=== PATIENT | male | born 1945 | race Caucasian/White ===

== ENCOUNTER 2017-08-26 15:57 | Inpatient (IN) | payer MEDICAID ==
--- NOTE | 2017-08-26 16:31 | ED PDOC ---
Arrival/HPI - General Chief Complaint: Weakness/Neurological Deficit Time Seen by Provider: 08/26/17 16:00 - History of Present Illness Narrative History of Present Illness (Text): 08/26/17 16:30 Patient is a 72 y/o M with hx of strokes, with 4 month history of increased forgetfulness, weight loss, and generalized fatigue. Daughter reports that today patient had 2 episodes were he could not hold his urine. Denies focal weakness. Denies chest pain, shortness of breath, bowel incontinence. Reports that he has been increasingly confused PMD: Gabby Ny 08/26/17 19:47 Past Medical History - Infectious Disease Hx of Infectious Diseases: None - Tetanus Immunization Tetanus Immunization: Up to Date - Cardiac Hx Hypertension: Yes - Pulmonary Hx Respiratory Disorders: No - Neurological HX Cerebrovascular Accident: Yes - HEENT Hx HEENT Disorder: Yes (glasses for reading) - Renal Hx Renal Disorder: No - Endocrine/Metabolic Hx Endocrine Disorders: No - Hematological/Oncological Hx Anemia: Yes - Integumentary Hx Dermatological Disorder: No - Musculoskeletal/Rheumatological Hx Musculoskeletal Disorders: No Hx Falls: No - Gastrointestinal Hx Gastrointestinal Disorders: No - Genitourinary/Gynecological Hx Genitourinary Disorders: No - Psychiatric Hx Depression: No Hx Emotional Abuse: No Hx Physical Abuse: No Hx Substance Use: No - Past Surgical History Past Surgical History: No Previous - Suicidal Assessment Feels Threatened In Home Enviroment: No Family/Social History Family/Social History: No Known Family HX Smoking Status: Former Smoker Hx Alcohol Use: No Hx Substance Use: No Hx Substance Use Treatment: No Allergies/Home Meds Allergies/Adverse Reactions: Allergies No Known Allergies Allergy (Verified 05/27/13 15:41) Home Medications: Home Meds Medication Instructions Recorded Confirmed Enalapril Maleate 20 mg PO BID 05/27/13 05/27/13 Metoprolol Tartrate 100 mg PO BID 05/27/13 05/27/13 Review of Systems - Review of Systems Constitutional: Fatigue, Weight Change Eyes: absent: Vision Changes ENT: absent: Hearing Changes Respiratory: absent: SOB, Cough, Sputum, Wheezing Cardiovascular: absent: Chest Pain, Palpitations, Edema, Calf Pain, LORENZANA, Orthopnea, Syncope Gastrointestinal: absent: Abdominal Pain, Constipation, Diarrhea, Nausea, Vomiting Genitourinary Male: Urinary Output Changes (incontinence). absent: Dysuria Neurological: absent: Headache, Dizziness, Focal Weakness, Gait Changes, Speech Changes Psychiatric: absent: Anxiety, Depression Physical Exam Vital Signs Temp Pulse Resp BP Pulse Ox 08/26/17 20:04 85 18 172/97 H 100 08/26/17 17:57 73 18 113/55 L 99 08/26/17 15:57 98.2 F 73 18 118/73 100 Temperature: Afebrile Blood Pressure: Normal Pulse: Regular Respiratory Rate: Normal Appearance: Positive for: Cachectic Pain Distress: None Mental Status: Positive for: Alert and Oriented X 3 - Systems Exam Head: Present: Atraumatic, Normocephalic Pupils: Present: PERRL Extroacular Muscles: Present: EOMI Conjunctiva: Present: Normal Mouth: Present: Moist Mucous Membranes Neck: No: Meningeal Signs Respiratory/Chest: Present: Clear to Auscultation, Good Air Exchange. No: Respiratory Distress, Accessory Muscle Use Cardiovascular: Present: Regular Rate and Rhythm, Normal S1, S2. No: Murmurs Abdomen: No: Tenderness, Distention, Rebound, Guarding Upper Extremity: Present: Normal Inspection, Normal ROM Lower Extremity: Present: Normal Inspection, Normal ROM Neurological: Present: GCS=15, CN II-XII Intact, Speech Normal, Motor Func Grossly Intact, Normal Sensory Function Psychiatric: Present: Alert Medical Decision Making ED Course and Treatment: Patient was able to urinate into urinal in ED without issue. Normal strength. 08/26/17 21:18 CT head IMPRESSION: Extremely limited by patient motion, atrophy and small vessel disease, no bleed; age indeterminate lacunar infarcts left thalamus and basal ganglia, age indeterminate infarct posterior left parietal lobe Essentially unchanged when compared to MRI on 08/18/17: "large old left parietal-posterior parietal cortical subcortical infarct multiple b.l cerebral lacunar infarcts including the basal ganglia and L thalamus lacunar infarct in the brainstem old large R cerebellar infarct with evidence of prior hemorrhage atrophy of the cerebellar hemispheres and brainstem b/l hippocampal atrophy more prominently on the L side. 08/26/17 22:43 FINDINGS: Lower thorax: Refer to prior report for chest findings ABDOMEN: Liver: unremarkable Gallbladder and bile ducts: unremarkable Pancreas: unremarkable Spleen: unremarkable Adrenals: There is thickening of both adrenals Kidneys and ureters: Kidneys are unremarkable. There is mild bilateral ureterectasis. Stomach and bowel: Stomach is partially distended. Rotation is normal. There is a duodenal diverticulum. Small bowel is distended with fluid and air. There is no obstruction. Terminal ileum is unremarkable. Appendix is not optimally visualized due to motion. There is moderate stool in the right colon. Left colon is incompletely distended which limits evaluation. Appendix: See stomach and bowel PELVIS: Bladder: Bladder is distended. Reproductive: Prostate is enlarged. There is prominence of the seminal vesicles. ABDOMEN and PELVIS: Intraperitoneal space: There is no free air or free fluid. Bones/joints: There are degenerative changes in the osseus structures. Soft tissues: unremarkable Vasculature: There are atherosclerotic calcifications in the aorta. There is mild dilatation of the infrarenal aorta, maximal diameter 2.6 cm. There is mural thrombus. There is medial displacement of curvilinear or atherosclerotic calcifications with contrast on either side suggesting distal dissection. There is no leak or adjacent inflammation. Lymph nodes: There is shotty adenopathy. 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 Dissection appears chronic. ?ileus. Patient reports no bowel movement in 2 days but denies abdominal pain. Abdomen soft NT/ND. UA negative. Patient is able to urinate in urinal on command in ED. ? incontinence from overflow or enlarged prostate or worsening dementia? Labs grossly normal. - Lab Interpretations Lab Results: 08/26/17 16:38 08/26/17 16:38 Lab Results 08/26/17 19:50: Urine Color Straw, Urine Appearance Clear, Urine pH 6.5, Ur Specific [place] <= 1.005, Urine Protein Negative, Urine Glucose (UA) Negative, Urine Ketones Negative, Urine Blood Negative, Urine Nitrate Negative, Urine Bilirubin Negative, Urine Urobilinogen 0.2, Ur Leukocyte Esterase Negative 08/26/17 16:38: Free T4 1.18, TSH 3rd Generation 4.96 H 08/26/17 16:38: Sodium 135, Potassium 4.4, Chloride 100, Carbon Dioxide 28, Anion Gap 12, BUN 20, Creatinine 1.1, Est GFR ( Amer) > 60, Est GFR (Non- Af Amer) > 60, Random Glucose 105, Calcium 9.5, Phosphorus 4.0, Magnesium 2.0, Total Bilirubin 0.5, AST 47, ALT 53, Alkaline Phosphatase 134 H, Total Creatine Kinase 46, Troponin I < 0.01, Total Protein 7.8, Albumin 3.7, Globulin 4.1, Albumin/Globulin Ratio 0.9 L 08/26/17 16:38: WBC 4.0 L, RBC 3.79, Hgb 10.7 L, Hct 32.9 L, MCV 86.8, MCH 28.2 , MCHC 32.5, RDW 12.9, Plt Count 212, MPV 9.1, Gran % 56.1, Lymph % (Auto) 26.2 , [place] % (Auto) 15.1 H, Eos % (Auto) 1.8, Baso % (Auto) 0.8, Gran # 2.23, Lymph # (Auto) 1.0 L, [place] # (Auto) 0.6, Eos # (Auto) 0.1, Baso # (Auto) 0.03 - RAD Interpretation Radiology Orders: 08/26/17 16:06 HEAD W/O CONTRAST [CT] Stat 08/26/17 16:07 CHEST PORTABLE [RAD] Stat 08/26/17 18:25 CHEST,ABD,PEL W/IV CONT ONLY [CT] Stat - Medication Orders Current Medication Orders: Discontinued Medications Sodium Chloride (Sodium Chloride 0.9%) 500 mls @ 999 mls/hr IV .Q31M STA Stop: 08/26/17 21:48 Last Admin: 08/26/17 21:15 Dose: 999 mls/hr eMAR Start Stop Document 08/26/17 21:15 RD (Rec: 08/26/17 21:43 RD [id number]) Intravenous Solution Start Date 08/26/17 Start Time 21:15 End Date 08/26/17 End time 21:45 Total Infusion Time 30 Disposition/Present on Arrival - Present on Arrival Any Indicators Present on Arrival: No History of DVT/PE: No History of Uncontrolled Diabetes: No Urinary Catheter: No History of Decub. Ulcer: No History Surgical Site Infection Following: None - Disposition Have Diagnosis and Disposition been Completed?: Yes Diagnosis: Ileus, Atherosclerosis, CVA (cerebral vascular accident) Disposition: HOSPITALIZED Disposition Time: 22:50 Patient Plan: Admission Patient Problems: Current Active Problems Problem Status Onset Ileus Acute Atherosclerosis Acute CVA (cerebral vascular accident) Acute Condition: FAIR
[2017-08-26 16:56] LABS: BASO # 0.03 K/mm3 (0.0-2.0); BASO % 0.8 % (0.0-3.0); EOS # 0.1 (0.0-0.7); EOS % 1.8 % (1.5-5.0); GRAN # 2.23 (1.4-6.5); GRAN % 56.1 % (50.0-68.0); HEMOGLOBIN 10.7 g/dL (14.0-18.0); LYMPH % 26.2 % (22.0-35.0); MEAN CELL VOLUME 86.8 fl (80.0-105.0); MEAN CORPUSCULAR HEMOGLOBIN 28.2 pg (25.0-35.0); MEAN CORPUSCULAR HGB CONC 32.5 g/dl (31.0-37.0); MEAN PLATELET VOLUME 9.1 fl (7.0-11.0); MONO # 0.6 (0.1-0.6); MONO % 15.1 % (1.0-6.0); RBC 3.79 10^6/uL (3.5-6.1); RED CELL DISTRIBUTION WIDTH 12.9 % (11.5-14.5)
[2017-08-26 17:17] LABS: ALB/GLOB RATIO 0.9 (1.1-1.8); ALBUMIN 3.7 g/dL (3.0-4.8); ALT/SGPT 53 U/L (7-56); AST/SGOT 47 U/L (17-59); BLOOD UREA NITROGEN 20 mg/dL (7-21); CALCIUM 9.5 mg/dL (8.4-10.5); GFR AFRICAN-AMERICAN > 60; GFR NON-AFRICAN AMERICAN > 60
[2017-08-26 17:26] LABS: TROPONIN I < 0.01 ng/mL
[2017-08-26 18:22] LABS: FREE T4 1.18 ng/dL (0.78-2.19)
[2017-08-26] MEDS ORDERED: Iohexol 350 MG/100 ML VIAL ONE (19:12)
[2017-08-26 20:17] LABS: PH,URINE 6.5 (4.7-8.0); URINE BILIRUBIN NEGATIVE (NEGATIVE); URINE BLOOD NEGATIVE (NEGATIVE); URINE GLUCOSE (UA) NEGATIVE (NEGATIVE); URINE LEUKOCYTE ESTERASE NEGATIVE Leu/uL (NEGATIVE); URINE PROTEIN NEGATIVE mg/dL (<30 mg/dL); URINE UROBILINOGEN 0.2 E.U./dL (<1 E.U./dL)
[2017-08-26 20:19] LABS: URINE APPEARANCE CLEAR (CLEAR); URINE COLOR STRAW (YELLOW)
--- NOTE | 2017-08-26 21:16 | CT ---
EXAM: CT Head Without Intravenous Contrast EXAM DATE/TIME: 08/26/2017 4:06 PM CLINICAL HISTORY: 72 years old, male; Signs and symptoms; Other: Fatigue; Patient HX: Pt uncoperative; Additional info: Generalized fatigue TECHNIQUE: Axial computed tomography images of the head/brain without intravenous contrast. All CT scans at this facility use one or more dose reduction techniques, viz.: automated exposure control; ma/kV adjustment per patient size (including targeted exams where dose is matched to indication; i.e. head); or iterative reconstruction technique. Coronal and sagittal reformatted images were created and reviewed. COMPARISON: There are no prior studies for comparison. FINDINGS: Artifacts: Motion artifact degrades image quality. Brain: There is prominence of sulci gyri and ventricles. There is no midline shift. There is patchy decreased attenuation in periventricular white matter. There are age-indeterminate lacunar infarcts in the left thalamus and left basal ganglia. There is age-indeterminate ischemic change in the posterior left parietal lobe. Allowing for patient motion, there are no focal masses or hemorrhages.. Trejo-white differentiation is maintained. Ventricles: See above Bones: Allowing for motion, cranial vault is intact. Soft tissues: unremarkable Sinuses: There is no acute sinusitis. Mastoid air cells: Ears and mastoids: Middle ears and mastoids are unremarkable. Orbits: Motion limits evaluation the orbits IMPRESSION: Extremely limited by patient motion, atrophy and small vessel disease, no bleed; age indeterminate lacunar infarcts left thalamus and basal ganglia, age indeterminate infarct posterior left parietal lobe
[2017-08-26] MEDS ORDERED: Sodium Chloride 0.9% 500 ML IV STA (21:18)
--- NOTE | 2017-08-26 22:02 | CARD ---
APPROVED REPORT EKG Measurement Heart [id number] <Conclusion> Normal sinus rhythm Septal infarct, age undetermined Possible Lateral infarct, age undetermined Cannot rule out Inferior infarct, age undetermined Possible lateral injury pattern Abnormal ECG
--- NOTE | 2017-08-26 22:28 | CT ---
EXAM: CT Chest With Intravenous Contrast CLINICAL HISTORY: 72 years old, male; Signs and symptoms; Other: Wt loss; Other: Fatigue; Additional info: Generalized fatigue, pain, weight loss TECHNIQUE: Axial computed tomography images of the chest with intravenous contrast. All CT scans at this facility use one or more dose reduction techniques, viz.: automated exposure control; ma/kV adjustment per patient size (including targeted exams where dose is matched to indication; i.e. head); or iterative reconstruction technique. Coronal and sagittal reformatted images were created and reviewed. CONTRAST: 100 mL of OMNI 35 administered intravenously. COMPARISON: There are no prior studies for comparison. FINDINGS: Artifacts: Motion artifact degrades image quality. Lungs and pleural spaces: Trachea and main bronchi are patent. There is apical pleural-parenchymal scarring bilaterally. There is mild prominence of interstitial markings. Motion accentuates interstitial markings in both lungs and limits evaluation. There is nodular pleural thickening bilaterally greatest on the right. There is a 2 mm peripheral right middle lobe nodule. There is a 2 mm peripheral lingular nodule. There is a 1.6 mm right upper lobe nodule. There are multiple additional pleural-based peripheral nodular opacities. There are no effusions. There is scarring at the lung bases. Heart and vasculature: Heart size is normal. There are coronary artery calcifications. Aorta is normal in caliber. There are vascular calcifications. Main pulmonary artery is normal in caliber. Mediastinum: There are mildly prominent mediastinal nodes. There is shotty right hilar nodes. The esophagus is partially distended with air. Thyroid: There is a small right thyroid nodule. Bones/joints: Bony structures are osteopenic. Soft tissues: unremarkable Upper abdomen: Refer to following report for abdominal findings IMPRESSION: Extremely limited by patient motion; diffuse increase in interstitial markings acute versus chronic; multiple small peripheral less than 3 mm pulmonary nodules difficult to further characterize; atherosclerotic disease EXAM: CT Abdomen and Pelvis With Intravenous Contrast EXAM DATE/TIME: 08/26/2017 6:25 PM CLINICAL HISTORY: 72 years old, male; Signs and symptoms; Other: Wt loss; Other: Fatigue; Additional info: Generalized fatigue, pain, weight loss TECHNIQUE: Axial computed tomography images of the abdomen and pelvis with intravenous contrast. All CT scans at this facility use one or more dose reduction techniques, viz.: automated exposure control; ma/kV adjustment per patient size (including targeted exams where dose is matched to indication; i.e. head); or iterative reconstruction technique. Coronal and sagittal reformatted images were created and reviewed. CONTRAST: 100 mL of OMNI 35 administered intravenously. COMPARISON: There are no prior studies for comparison. FINDINGS: Lower thorax: Refer to prior report for chest findings ABDOMEN: Liver: unremarkable Gallbladder and bile ducts: unremarkable Pancreas: unremarkable Spleen: unremarkable Adrenals: There is thickening of both adrenals Kidneys and ureters: Kidneys are unremarkable. There is mild bilateral ureterectasis. Stomach and bowel: Stomach is partially distended. Rotation is normal. There is a duodenal diverticulum. Small bowel is distended with fluid and air. There is no obstruction. Terminal ileum is unremarkable. Appendix is not optimally visualized due to motion. There is moderate stool in the right colon. Left colon is incompletely distended which limits evaluation. Appendix: See stomach and bowel PELVIS: Bladder: Bladder is distended. Reproductive: Prostate is enlarged. There is prominence of the seminal vesicles. ABDOMEN and PELVIS: Intraperitoneal space: There is no free air or free fluid. Bones/joints: There are degenerative changes in the osseus structures. Soft tissues: unremarkable Vasculature: There are atherosclerotic calcifications in the aorta. There is mild dilatation of the infrarenal aorta, maximal diameter 2.6 cm. There is mural thrombus. There is medial displacement of curvilinear or atherosclerotic calcifications with contrast on either side suggesting distal dissection. There is no leak or adjacent inflammation. Lymph nodes: There is shotty adenopathy. 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
--- NOTE | 2017-08-27 02:12 | CP.PCM.HP ---
<Hever El - Last Filed: 08/27/17 02:22> History of Present Illness - History of Present Illness History of Present Illness: CC: General weakness, fatigue HPI: 72 year old male with past medical history of DM2, HTN, HLD, hx of multiple CVA who presents with complaints of 3 to 4 month history of progressive weakness, memory loss, and fatigue. Patient is joined by family at bedside who provides majority of translation and medical history for the patient. Patient family states for the past 3 to 4 months the patient has had progressive memory loss/issues, weakness, fatigue and difficulty hearing. Of not patient has had multiple (x4)strokes according to family 3 to 4 months prior to presentation at onset of presenting symptoms, patient also has history of hemorrhagic stroke in 2013 with right upper extremity residual weakness. Family indicates patient is able to preform activities of daily living. Family indicates he has not had any loss of consciousness, falls, witnessed seizure activity. Patient family also reports one day history of incontinence of urine. Family denies any loss of bowel, saddle anesthesia. In ED patient was noted to be able to preform evacuation of urination with bedside urinal without difficulty. Patient family states that he only takes metoprolol and after most recent strokes there has been no follow up with a neurologist. Associated symptoms are blurry vision of his right eye at times, headache, weight loss of 10 pounds in the past 6 months. Patient denies chest pain, shortness of breath, abdominal pain, fever, chills, nausea, vomiting, diarrhea. PMH: DM2, HTN, HLD, Hx of CVA PSH: Denies SOcHx: TObacco: Former ETOH: Denies, ID: Denies All: NKDA MEDS: - Metoprolol PMD: DR. Mckayla Tuttle Present on Admission - Present on Admission Any Indicators Present on Admission: No Review of Systems - Review of Systems All systems: reviewed and no additional remarkable complaints except (otherwise mentioned in HPI) Past Patient History - Infectious Disease Hx of Infectious Diseases: None - Tetanus Immunizations Tetanus Immunization: Up to Date - Past Social History Smoking Status: Former Smoker Alcohol: None Drugs: Denies - CARDIAC Hx Hypertension: Yes - PULMONARY Hx Respiratory Disorders: No - NEUROLOGICAL HX Cerebrovascular Accident: Yes - HEENT Hx HEENT Problems: Yes (glasses for reading) - RENAL Hx Chronic Kidney Disease: No - ENDOCRINE/METABOLIC Hx Endocrine Disorders: No - HEMATOLOGICAL/ONCOLOGICAL Hx Anemia: Yes - INTEGUMENTARY Hx Dermatological Problems: No - MUSCULOSKELETAL/RHEUMATOLOGICAL Hx Musculoskeletal Disorders: No Hx Falls: No - GASTROINTESTINAL Hx Gastrointestinal Disorders: No - GENITOURINARY/GYNECOLOGICAL Hx Genitourinary Disorders: No - PSYCHIATRIC Hx Depression: No Hx Emotional Abuse: No Hx Physical Abuse: No Hx Substance Use: No - SURGICAL HISTORY Hx Surgeries: No Meds Allergies/Adverse Reactions: Allergies Allergy/AdvReac Type Severity Reaction Status Date / Time No Known Allergies Allergy Verified 05/27/13 15:41 Physical Exam - Constitutional Appears: Non-toxic Additional comments: appears stated age, thin male, deconditioned - Head Exam Head Exam: ATRAUMATIC, NORMAL INSPECTION, NORMOCEPHALIC - Eye Exam Eye Exam: EOMI, PERRL - ENT Exam ENT Exam: Mucous Membranes Moist - Neck Exam Neck exam: Positive for: Full Rom - Respiratory Exam Respiratory Exam: Clear to Auscultation Bilateral, NORMAL BREATHING PATTERN. absent: Rales, Rhonchi, Wheezes - Cardiovascular Exam Cardiovascular Exam: REGULAR RHYTHM, +S1, +S2 - GI/Abdominal Exam GI & Abdominal Exam: Normal Bowel Sounds, Soft. absent: Firm, Guarding, Rigid, Tenderness - Rectal Exam Rectal Exam: absent: Bloody Stool Additional comments: rectal tone intact - Extremities Exam Extremities exam: Positive for: normal inspection, pedal pulses present. Negative for: calf tenderness, tenderness - Back Exam Back exam: NORMAL INSPECTION. absent: CVA tenderness (L), CVA tenderness (R) - Neurological Exam Neurological exam: Alert, Normal Gait, Oriented x3 Additional comments: patient able to follow simple commands, move all four extremities past midline, strength limited right upper extremity compared to left - Psychiatric Exam Psychiatric exam: Normal Affect, Normal Mood - Skin Skin Exam: Dry, Intact, Warm Results - Vital Signs Recent Vital Signs: Last Vital Signs Temp 98.2 F 08/26/17 15:57 Pulse 83 08/27/17 00:44 Resp 18 08/27/17 00:44 BP 123/71 08/27/17 00:44 Pulse Ox 98 08/27/17 00:44 - Labs Result Diagrams: 08/26/17 16:38 08/26/17 16:38 Assessment & Plan - Assessment and Plan (Free Text) Assessment: 72 year old male with past medical history of DM2, HTN, HLD, hx of multiple CVA who presents with progressive general weakness, memory loss, blurry vision and one day history of urinary incontiencnce without alarm symptoms. Patient will be admitted for deconditioning, weight loss, with general fatigue. Plan: 1. Progressive weakness w/ history of wt loss - Etiology dementia vs. delrium vs. seizure - Hx of multiple CVA x4 3 to 4 months ago - Head CT showing extremely limited by patient motion, atrophy and small vessel disease, no bleed; age indeterminate lacunar infarcts left thalamus and basal ganglia, age indeterminate infarct posterior left parietal lobe MRI outpatient showing - "large old left parietal-posterior parietal cortical subcortical infarct - multiple b.l cerebral lacunar infarcts including the basal ganglia and L thalamus - lacunar infarct in the brainstem - old large R cerebellar infarct with evidence of prior hemorrhage - atrophy of the cerebellar hemispheres and brainstem - b/l hippocampal atrophy more prominently on the L side. Neuro consult, appreciate recs - EEG - Aspirin, Atorvastatin - MARCUS echo - UA 2. 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 DM2 - Last known HgA1c from outpatient labs 6.2 on 08/16 - ACHS 4. Subclinical Hypothyroidism -Outpatient lab TSH 7.56, T4 9.4 - T3 uptake 26 - Free Thyroxine Index 2.4 5. Ileus? - Serial abdominal exams - NPO - Lactulose - Liquid diet, advance as tolerated DVT/GI ppx - Heparin - Protonix Case and plan discussed with attending, Dr. Adkins - Date & Time Date: 08/27/17 Time: 01:25 <Mike Adkins - Last Filed: 08/27/17 19:47> Results - Vital Signs Recent Vital Signs: Last Vital Signs Temp 97.7 F 08/27/17 15:45 Pulse 68 08/27/17 15:45 Resp 18 08/27/17 15:45 BP 147/85 08/27/17 15:45 Pulse Ox 100 08/27/17 15:45 - Labs Result Diagrams: 08/26/17 16:38 08/26/17 16:38 Labs: Laboratory Results - last 24 hr 08/27/17 08/27/17 10:59 15:51 POC Glucose (mg/dL) 109 89 Attending/Attestation - Attestation I have personally seen and examined this patient.: Yes I have fully participated in the care of the patient.: Yes I have reviewed all pertinent clinical information: Yes
[2017-08-27] MEDS: Pantoprazole 40 mg EC Tab PO SCH (07:56)
[2017-08-27] MEDS: Metoprolol Succinate 25 mg XL Tab PO SCH (07:56)
[2017-08-27 08:25] VITALS: BMI 19.3
--- NOTE | 2017-08-27 09:51 | RAD ---
HISTORY: fatigue COMPARISON: 05/27/2013 FINDINGS: LUNGS: Chronic interstitial lung disease. PLEURA: No significant pleural effusion identified, no pneumothorax apparent. CARDIOVASCULAR: No radiographic findings to suggest acute or significant cardiovascular disease. OSSEOUS STRUCTURES: No significant abnormalities. VISUALIZED UPPER ABDOMEN: Normal. OTHER FINDINGS: None. IMPRESSION: No active disease. No significant interval change compared to the prior examination(s).
--- NOTE | 2017-08-27 11:11 | CP.PCM.CON ---
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 He had several spells of urinary incontinence yesterday. There is a stepwise progression of his symptoms, since 5 years ago when he had his last hypertensive stroke. Before then, he was doing his own bills, taking a shower, and even driving occasionally. ROS: dizziness, no headache, no visual symptoms. PMH/PSH: as above. 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 Has 5 brothers and sisters with no history of dementia or Parkinsons. All: nkda on exam: alert awake oriented to self, and hospital, but thinks it is 2020. Pupils 3mm- 2mm lisette light. EOMI. CN 2-12 normal. cannot name and repeat. Has apraxia, ideamotor, constructional, and he cannot draw clock orintersecting pentagons. there is no stigmata of parkinsons. motor: strength normal. sensory: difficult to assess Cerebellar: f/n no dysmetria, Gait: ataxic. +3 dtr ul and ll. Toes downgoing no clonus. Past Patient History - Infectious Disease Hx of Infectious Diseases: None - Tetanus Immunizations Tetanus Immunization: Up to Date - Past Social History Smoking Status: Never Smoked - CARDIAC Hx Hypertension: Yes - PULMONARY Hx Respiratory Disorders: No - NEUROLOGICAL HX Cerebrovascular Accident: Yes - HEENT Hx HEENT Problems: Yes (glasses for reading) - RENAL Hx Chronic Kidney Disease: No - ENDOCRINE/METABOLIC Hx Endocrine Disorders: No - HEMATOLOGICAL/ONCOLOGICAL Hx Anemia: Yes - INTEGUMENTARY Hx Dermatological Problems: No - MUSCULOSKELETAL/RHEUMATOLOGICAL Hx Falls: No - GASTROINTESTINAL Hx Gastrointestinal Disorders: No - GENITOURINARY/GYNECOLOGICAL Hx Genitourinary Disorders: No - PSYCHIATRIC Hx Depression: No Hx Emotional Abuse: No Hx Physical Abuse: No Hx Substance Use: No - SURGICAL HISTORY Hx Surgeries: No Meds Allergies/Adverse Reactions: Allergies Allergy/AdvReac Type Severity Reaction Status Date / Time No Known Allergies Allergy Verified 05/27/13 15:41 - Medications Medications: Current Medications Aspirin (Aspirin Chewable) 81 mg PO DAILY [facility] Last Admin: 08/27/17 10:13 Dose: 81 mg Atorvastatin Calcium (Lipitor) 40 mg PO DIN [facility] Finasteride (Proscar) 5 mg PO DAILY [facility] Last Admin: 08/27/17 10:13 Dose: 5 mg Heparin Sodium (Porcine) (Heparin) 5,000 units SC Q8 [facility] PRN Reason: Protocol Last Admin: 08/27/17 06:31 Dose: 5,000 units Metoprolol Succinate (Toprol Xl) 12.5 mg PO BRK [facility] Last Admin: 08/27/17 07:56 Dose: 12.5 mg Pantoprazole Sodium (Protonix Ec Tab) 40 mg PO ACB [facility] Last Admin: 08/27/17 07:56 Dose: 40 mg Results - Vital Signs Recent Vital Signs: Last Vital Signs Temp 97.5 F L 08/27/17 06:00 Pulse 63 08/27/17 07:56 Resp 20 08/27/17 06:00 BP 102/67 08/27/17 07:56 Pulse Ox 98 08/27/17 06:00 - Labs Result Diagrams: 08/26/17 16:38 08/26/17 16:38 Assessment & Plan - Assessment and Plan (Free Text) Assessment: 72 yr old male with what appears to be vascular dementia, moderately severe, which has been progressing for about 10 years. Currently he is unable to perform most of his ADLs requiring assistance. There are no signs of Parkinson' s. Plan 1. control BP 2. start rivastigmine 3. no sundowning at this time, if it starts, recommend adding Seroquel 4. f/u with outpatient neurology [facility]
[2017-08-27 20:01] LABS: PH,URINE 6.5 (4.7-8.0); URINE APPEARANCE CLEAR (CLEAR); URINE BILIRUBIN NEGATIVE (NEGATIVE); URINE BLOOD NEGATIVE (NEGATIVE); URINE COLOR YELLOW (YELLOW); URINE GLUCOSE (UA) NEGATIVE (NEGATIVE); URINE LEUKOCYTE ESTERASE NEGATIVE Leu/uL (NEGATIVE); URINE PROTEIN NEGATIVE mg/dL (<30 mg/dL); URINE UROBILINOGEN 0.2 E.U./dL (<1 E.U./dL)
[2017-08-28 07:35] LABS: BASO # 0.01 K/mm3 (0.0-2.0); BASO % 0.2 % (0.0-3.0); EOS # 0.1 (0.0-0.7); EOS % 2.7 % (1.5-5.0); GRAN # 2.57 (1.4-6.5); GRAN % 57.8 % (50.0-68.0); HEMOGLOBIN 10.4 g/dL (14.0-18.0); LYMPH # 1.2 (1.2-3.4); LYMPH % 27.6 % (22.0-35.0); MEAN CELL VOLUME 86.6 fl (80.0-105.0); MEAN CORPUSCULAR HEMOGLOBIN 27.4 pg (25.0-35.0); MEAN CORPUSCULAR HGB CONC 31.6 g/dl (31.0-37.0); MEAN PLATELET VOLUME 9.3 fl (7.0-11.0); MONO # 0.5 (0.1-0.6); MONO % 11.7 % (1.0-6.0); RBC 3.8 10^6/uL (3.5-6.1); RED CELL DISTRIBUTION WIDTH 12.9 % (11.5-14.5); WHITE BLOOD COUNT 4.5 10^3/ul (4.5-11.0)
[2017-08-28 07:52] LABS: ALB/GLOB RATIO 0.9 (1.1-1.8); ALBUMIN 3.4 g/dL (3.0-4.8); ALT/SGPT 49 U/L (7-56); AST/SGOT 42 U/L (17-59); BLOOD UREA NITROGEN 15 mg/dL (7-21); CALCIUM 9.7 mg/dL (8.4-10.5); GFR AFRICAN-AMERICAN > 60; GFR NON-AFRICAN AMERICAN > 60
[2017-08-28] MEDS: Pantoprazole 40 mg EC Tab PO SCH (07:57)
[2017-08-28] MEDS: Metoprolol Succinate 25 mg XL Tab PO SCH (09:59)
--- NOTE | 2017-08-28 11:07 | CP.PCM.PN ---
<Jere Mercado - Last Filed: 08/28/17 11:03> Subjective - Date & Time of Evaluation Date of Evaluation: 08/28/17 Time of Evaluation: 11:03 - Subjective Subjective: Medicine Progress Note: Patient seen and assessed at bedside. Patient's son at bedside who assists in translation. No acute events overnight noted by patient or nursing staff. Patient alert and oriented to person, place and time. Patient denies any complaints at this time including fever, chills, headache, chest pain, palpitations, SOB, cough, wheezing, abdominal pain, N/V/D/C, urinary symptoms, or any skin changes. Objective - Vital Signs/Intake and Output Vital Signs (last 24 hours): Temp Pulse Resp BP Pulse Ox 98.3 F 73 18 118/78 96 08/28/17 06:00 08/28/17 09:59 08/28/17 06:00 08/28/17 09:59 08/28/17 06:00 Intake and Output: 08/28/17 08/28/17 06:59 18:59 Intake Total Balance - Medications Medications: Current Medications Aspirin (Aspirin Chewable) 81 mg PO DAILY [facility] Last Admin: 08/28/17 09:59 Dose: 81 mg Atorvastatin Calcium (Lipitor) 40 mg PO DIN [facility] Last Admin: 08/27/17 17:13 Dose: 40 mg Finasteride (Proscar) 5 mg PO DAILY [facility] Last Admin: 08/28/17 09:59 Dose: 5 mg Heparin Sodium (Porcine) (Heparin) 5,000 units SC Q8 [facility] PRN Reason: Protocol Last Admin: 08/28/17 05:40 Dose: 5,000 units Metoprolol Succinate (Toprol Xl) 12.5 mg PO BRK [facility] Last Admin: 08/28/17 09:59 Dose: 12.5 mg Pantoprazole Sodium (Protonix Ec Tab) 40 mg PO ACB [facility] Last Admin: 08/28/17 07:57 Dose: 40 mg - Labs Labs: 08/28/17 07:00 08/28/17 07:00 APTT 47.2 Seconds (25.1-36.5) H 08/28/17 07:00 - Constitutional Appears: Non-toxic, No Acute Distress - Head Exam Head Exam: ATRAUMATIC, NORMOCEPHALIC - Eye Exam Eye Exam: EOMI, Normal appearance Pupil Exam: NORMAL ACCOMODATION, PERRL - ENT Exam ENT Exam: Mucous Membranes Moist, Normal Exam - Neck Exam Neck Exam: Full ROM, Normal Inspection. absent: Lymphadenopathy - Respiratory Exam Respiratory Exam: Clear to Ausculation Bilateral, NORMAL BREATHING PATTERN. absent: Accessory Muscle Use, Rales, Rhonchi, Wheezes - Cardiovascular Exam Cardiovascular Exam: REGULAR RHYTHM, RRR, +S1, +S2. absent: Bradycardia, Tachycardia, Clicks, Diastolic murmur, Gallop, Irregular Rhythm, JVD, Rubs, +S4 , Murmur - GI/Abdominal Exam GI & Abdominal Exam: Soft, Normal Bowel Sounds. absent: Tenderness - Extremities Exam Extremities Exam: Full ROM, Normal Capillary Refill, Normal Inspection. absent : Calf Tenderness, Joint Swelling, Pedal Edema, Tenderness - Back Exam Back Exam: NORMAL INSPECTION - Neurological Exam Neurological Exam: Alert, Awake, Oriented x3 - Psychiatric Exam Psychiatric exam: Normal Affect, Normal Mood - Skin Skin Exam: Dry, Intact, Normal Color, Warm Assessment and Plan - Assessment and Plan (Free Text) Assessment: 72 year old male with past medical history significant for DM2, HTN, HLD, and multiple CVA's who presents with progressive general weakness, memory loss, and one day history of urinary incontinence. Plan: 1. Generalized Weakness with associated Memory Loss -CT Head showed age indeterminate lacunar infarcts of left thalamus and basal ganglia as well as age indeterminate infarct posterior left parietal lobe -MRI done as an outpatient showed large old left parietal-posterior parietal cortical subcortical infarct, multiple bilateral cerebral lacunar infarcts including the basal ganglia and left thalamus, lacunar infarct in the brainstem , old large right cerebellar infarct with evidence of prior hemorrhage, atrophy of the cerebellar hemispheres and brainstem and bilateral hippocampal atrophy more prominently on the left side -Chest X-Ray showed no active disease -EEG pending -Start Rivastigmine, per Neurology -Continue ASA and Lipitor -Neurology consulted, all recommendations appreciated -PT/OT evaluation and treatment pending 2. Possible Abdominal Aortic Dissection -CT Chest, Abdomen and Pelvis showed medial displacement of curvilinear or atherosclerotic calcifications with contrast on either side suggesting distal, likely chronic, dissection -Vascular Surgery/IR consulted, all recommendations appreciated 3. Urinary Incontinence -CT Chest, Abdomen and Pelvis showed enlarged prostate -Continue Finasteride 4. Pulmonary Nodules -CT Chest, Abdomen and Pelvis showed multiple pulmonary nodules all measuring less than 2mm -No prior studies for comparison -Will advise outpatient monitoring with PMD upon discharge 5. History of HTN -Continue Metoprolol GI Prophylaxis: Protonix DVT Prophylaxis: Heparin Patient seen and case discussed with attending, Dr. Troy Davidson. <Troy Davidson - Last Filed: 08/28/17 15:14> Objective - Vital Signs/Intake and Output Vital Signs (last 24 hours): Temp Pulse Resp BP Pulse Ox 98.3 F 73 18 118/78 96 08/28/17 06:00 08/28/17 09:59 08/28/17 06:00 08/28/17 09:59 08/28/17 06:00 Intake and Output: 08/28/17 08/28/17 06:59 18:59 Intake Total Balance - Medications Medications: Current Medications Aspirin (Aspirin Chewable) 81 mg PO DAILY [facility] Last Admin: 08/28/17 09:59 Dose: 81 mg Atorvastatin Calcium (Lipitor) 40 mg PO DIN [facility] Last Admin: 08/27/17 17:13 Dose: 40 mg Finasteride (Proscar) 5 mg PO DAILY [facility] Last Admin: 08/28/17 09:59 Dose: 5 mg Heparin Sodium (Porcine) (Heparin) 5,000 units SC Q8 [facility] PRN Reason: Protocol Last Admin: 08/28/17 05:40 Dose: 5,000 units Metoprolol Succinate (Toprol Xl) 12.5 mg PO BRK [facility] Last Admin: 08/28/17 09:59 Dose: 12.5 mg Pantoprazole Sodium (Protonix Ec Tab) 40 mg PO ACB [facility] Last Admin: 08/28/17 07:57 Dose: 40 mg - Labs Labs: 08/28/17 07:00 08/28/17 07:00 APTT 47.2 Seconds (25.1-36.5) H 08/28/17 07:00 Attending/Attestation - Attestation I have personally seen and examined this patient.: Yes I have fully participated in the care of the patient.: Yes I have reviewed all pertinent clinical information, including history, physical exam and plan: Yes Notes (Text): I have seen and examined the patient at bedside. Agree with the above note with the following additions/ exceptions: Briefly this is 72 year old male with history of HTN, dyslipidemia, multiple CVAs in the past who was brought by family for evaluation of progressive general weakness, memory loss, and one day history of urinary incontinence. CT and MRI head results were noted. Patient is on aspirin, lipitor and rivastigmine. Most likely symptoms are related to vascular dementia as patient's family reports fluctuating course, nocturnal confusion, preservation of personality, emotional incontinence, focal neurological signs /symptoms which has now resolved and abrupt onset of step abraham deterioration.Physical therapy evaluation pending. Patient reported weight loss upon admission. CT chest, abdomen and pelvis was done which revealed chronic abdominal aortic dissection. Vascular surgery consult pending. BP and HR stable. CT chest also revealed multiple pulmonary nodules less than 3mm. Patient is <65 years of age, has history of smoking, no FH of lung cancer and has multiple small size lung nodules which most likely is representing infectious vs inflammatory process. No prior CT available for comparison. He will need follow up CT chest within 3 months to evaluate for resolution. Will call PMD tomorrow. Upon discharge patient will follow up with Dr Narinder Blevins. Dr Troy Davidson
[2017-08-29 06:44] LABS: BASO # 0.02 K/mm3 (0.0-2.0); BASO % 0.4 % (0.0-3.0); EOS # 0.1 (0.0-0.7); EOS % 2.2 % (1.5-5.0); GRAN # 2.82 (1.4-6.5); GRAN % 61.3 % (50.0-68.0); HEMOGLOBIN 10.9 g/dL (14.0-18.0); LYMPH # 1.1 (1.2-3.4); LYMPH % 23.5 % (22.0-35.0); MEAN CELL VOLUME 86.3 fl (80.0-105.0); MEAN CORPUSCULAR HEMOGLOBIN 27.7 pg (25.0-35.0); MEAN CORPUSCULAR HGB CONC 32.1 g/dl (31.0-37.0); MEAN PLATELET VOLUME 9.1 fl (7.0-11.0); MONO # 0.6 (0.1-0.6); MONO % 12.6 % (1.0-6.0); RBC 3.94 10^6/uL (3.5-6.1); WHITE BLOOD COUNT 4.6 10^3/ul (4.5-11.0)
[2017-08-29 06:57] LABS: ALB/GLOB RATIO 0.8 (1.1-1.8); ALBUMIN 3.4 g/dL (3.0-4.8); ALT/SGPT 45 U/L (7-56); AST/SGOT 46 U/L (17-59); BLOOD UREA NITROGEN 18 mg/dL (7-21); GFR AFRICAN-AMERICAN > 60; GFR NON-AFRICAN AMERICAN 54
[2017-08-29] MEDS: Pantoprazole 40 mg EC Tab PO SCH (08:20)
[2017-08-29] MEDS: Metoprolol Succinate 25 mg XL Tab PO SCH (08:21)
--- NOTE | 2017-08-29 10:31 | CP.PCM.PN ---
Subjective - Date & Time of Evaluation Date of Evaluation: 08/29/17 Time of Evaluation: 07:30 - Subjective Subjective: Jovita Bobo DO PGY1 - IM Progress Note Patient seen and examined at bedside. No acute events overnight. Son was at bedside, acting as spring manufacturing set up technician. Patient reports continued difficulty with urination, pain and difficulty with urination, with sensation of incomplete voiding. He reports that he has had these symptoms for several days. He denies fever, chills, chest pain, shortness of breath, abdominal pain, nausea, vomiting , diarrhea, constipation. Son reports that his mental status is still not at baseline, and last time he was at his baseline was 3 weeks ago. Objective - Vital Signs/Intake and Output Vital Signs (last 24 hours): Temp Pulse Resp BP Pulse Ox 97.8 F 96 H 18 135/72 97 08/29/17 07:28 08/29/17 07:28 08/29/17 07:28 08/29/17 07:28 08/29/17 07:28 Intake and Output: 08/29/17 08/29/17 06:59 18:59 Intake Total 480 Balance 480 - Medications Medications: Current Medications Aspirin (Aspirin Chewable) 81 mg PO DAILY [facility] Last Admin: 08/28/17 09:59 Dose: 81 mg Atorvastatin Calcium (Lipitor) 40 mg PO DIN [facility] Last Admin: 08/28/17 17:17 Dose: 40 mg Finasteride (Proscar) 5 mg PO DAILY [facility] Last Admin: 08/28/17 09:59 Dose: 5 mg Heparin Sodium (Porcine) (Heparin) 5,000 units SC Q8 [facility] PRN Reason: Protocol Last Admin: 08/29/17 05:38 Dose: 5,000 units Metoprolol Succinate (Toprol Xl) 12.5 mg PO BRK [facility] Last Admin: 08/29/17 08:21 Dose: 12.5 mg Pantoprazole Sodium (Protonix Ec Tab) 40 mg PO ACB [facility] Last Admin: 08/29/17 08:20 Dose: 40 mg Tamsulosin HCl (Flomax) 0.4 mg PO DAILY [facility] - Labs Labs: 08/29/17 06:25 08/29/17 06:25 APTT 47.2 Seconds (25.1-36.5) H 08/28/17 07:00 - Constitutional Appears: Non-toxic, No Acute Distress, Confused (Patient has dementia at baseline) - Head Exam Head Exam: ATRAUMATIC, NORMOCEPHALIC - Eye Exam Eye Exam: EOMI, Normal appearance, PERRL - ENT Exam ENT Exam: Mucous Membranes Moist - Neck Exam Neck Exam: Full ROM, Normal Inspection - Respiratory Exam Respiratory Exam: Clear to Ausculation Bilateral, NORMAL BREATHING PATTERN - Cardiovascular Exam Cardiovascular Exam: RRR, +S1, +S2. absent: Diastolic murmur, Gallop, Murmur - GI/Abdominal Exam GI & Abdominal Exam: Soft, Tenderness (mild, suprapubic), Normal Bowel Sounds. absent: Distended, Firm, Guarding, Rigid Additional comments: Suprapubic fullness - Extremities Exam Extremities Exam: Normal Inspection. absent: Calf Tenderness, Pedal Edema - Back Exam Back Exam: absent: CVA tenderness (L), CVA tenderness (R) - Neurological Exam Neurological Exam: Alert, Awake Additional comments: Oriented to person and place. Believes it is August 21, 1999. - Psychiatric Exam Psychiatric exam: Normal Affect, Normal Mood - Skin Skin Exam: Dry, Intact, Normal Color Assessment and Plan - Assessment and Plan (Free Text) Assessment: 72 year old male with past medical history significant for DM2, HTN, HLD, and multiple CVA's who presents with progressive general weakness, memory loss, and one day history of urinary incontinence. Plan: 1. Generalized Weakness with associated Memory Loss -Likely chronic, progressive, 2/2 multi-infarct dementia -CT Head showed age indeterminate lacunar infarcts of left thalamus and basal ganglia as well as age indeterminate infarct posterior left parietal lobe -MRI done as an outpatient showed large old left parietal-posterior parietal cortical subcortical infarct, multiple bilateral cerebral lacunar infarcts including the basal ganglia and left thalamus, lacunar infarct in the brainstem , old large right cerebellar infarct with evidence of prior hemorrhage, atrophy of the cerebellar hemispheres and brainstem and bilateral hippocampal atrophy more prominently on the left side -Chest X-Ray showed no active disease -EEG pending -Continue Rivastigmine, per Neurology -Continue ASA and Lipitor -Neurology consulted, all recommendations appreciated -PT/OT evaluation and treatment pending 2. Possible Abdominal Aortic Dissection -CT Chest, Abdomen and Pelvis showed medial displacement of curvilinear or atherosclerotic calcifications with contrast on either side suggesting distal, likely chronic, dissection -Continue aggressive BP management, goal SBP 120-130; currently moderately controlled on Toprol XL 12.5 -Vascular Surgery and IR consulted, all recommendations appreciated 3. Urinary Incontinence -CT Chest, Abdomen and Pelvis showed enlarged prostate -Continue Finasteride -Start Flomax -Requested urology consult; appreciate recs 4. Pulmonary Nodules -CT Chest, Abdomen and Pelvis showed multiple pulmonary nodules all measuring less than 2mm -No prior studies for comparison -Will advise outpatient monitoring with PMD upon discharge 5. History of HTN -Continue Metoprolol GI Prophylaxis: Protonix DVT Prophylaxis: Heparin Patient seen and case discussed with attending, Dr. Prieto
--- NOTE | 2017-08-29 13:36 | CP.PCM.CON ---
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 Vascular surgery consulted for an incidental finding of mild dilatation of infrarenal aorta, 2.6 cm in diameter, on CT imaging. Pt has dementia, son at bedside, HPI obtained from chart, son, and pt. Pt reports intermittent mild RUQ abdominal pain, achy in nature, for past 2-3 days. Upon asking, pt also notes mild lower thoracic/lumbar region back pain, attributing to his sleeping position. Denies chest pain, headache, tearing/ripping intrascapular pain, syncope, hemiparesis, hemiplegia, numbness, tingling in extremities, dyspnea, fever. Pt or son does not recall ever being diagnosed with an abdominal aneurysm. PMH: DM2, HTN, HLD, multiple CVA (in 2015 and 2016) PSH: Denies All: NKDA SH: + tobacco user. Former ETOH. denies recreational drug use. PMD: DR. Mckayla Tuttle Review of Systems - Review of Systems All systems: reviewed and no additional remarkable complaints except Review of Systems: as per HPI Past Patient History - Infectious Disease Hx of Infectious Diseases: None - Tetanus Immunizations Tetanus Immunization: Up to Date - Past Social History Smoking Status: Never Smoked - CARDIAC Hx Hypertension: Yes - PULMONARY Hx Respiratory Disorders: No - NEUROLOGICAL HX Cerebrovascular Accident: Yes (x 4) - HEENT Hx HEENT Problems: Yes (glasses for reading) - RENAL Hx Chronic Kidney Disease: No - ENDOCRINE/METABOLIC Hx Diabetes Mellitus Type 2: Yes - HEMATOLOGICAL/ONCOLOGICAL Hx Anemia: Yes - INTEGUMENTARY Hx Dermatological Problems: No - MUSCULOSKELETAL/RHEUMATOLOGICAL Hx Falls: No - GASTROINTESTINAL Hx Gastrointestinal Disorders: No - GENITOURINARY/GYNECOLOGICAL Hx Genitourinary Disorders: No - PSYCHIATRIC Hx Depression: No Hx Emotional Abuse: No Hx Physical Abuse: No Hx Substance Use: No - SURGICAL HISTORY Hx Surgeries: No Meds Allergies/Adverse Reactions: Allergies Allergy/AdvReac Type Severity Reaction Status Date / Time No Known Allergies Allergy Verified 05/27/13 15:41 - Medications Medications: Current Medications Aspirin (Aspirin Chewable) 81 mg PO DAILY [facility] Last Admin: 08/29/17 10:34 Dose: 81 mg Atorvastatin Calcium (Lipitor) 40 mg PO DIN [facility] Last Admin: 08/28/17 17:17 Dose: 40 mg Finasteride (Proscar) 5 mg PO DAILY [facility] Last Admin: 08/29/17 10:34 Dose: 5 mg Heparin Sodium (Porcine) (Heparin) 5,000 units SC Q8 [facility] PRN Reason: Protocol Last Admin: 08/29/17 05:38 Dose: 5,000 units Metoprolol Succinate (Toprol Xl) 12.5 mg PO BRK [facility] Last Admin: 08/29/17 08:21 Dose: 12.5 mg Pantoprazole Sodium (Protonix Ec Tab) 40 mg PO ACB [facility] Last Admin: 08/29/17 08:20 Dose: 40 mg Tamsulosin HCl (Flomax) 0.4 mg PO DAILY [facility] Last Admin: 08/29/17 10:34 Dose: 0.4 mg Physical Exam - Constitutional Appears: Non-toxic, No Acute Distress - Head Exam Head Exam: ATRAUMATIC, NORMOCEPHALIC - Eye Exam Eye Exam: EOMI, PERRL. absent: Conjunctival injection, Nystagmus, Scleral icterus Pupil Exam: NORMAL ACCOMODATION, PERRL. absent: Fixed, Irregular, Miosis, Mydriatic, Unequal - ENT Exam ENT Exam: Mucous Membranes Moist - Neck Exam Neck exam: Positive for: Full Rom - Respiratory Exam Respiratory Exam: Clear to Auscultation Bilateral, NORMAL BREATHING PATTERN. absent: Accessory Muscle Use, Chest Wall Tenderness, Rales, Rhonchi, Wheezes, Stridor - Cardiovascular Exam Cardiovascular Exam: RRR, +S1, +S2. absent: Systolic Murmur - GI/Abdominal Exam GI & Abdominal Exam: Normal Bowel Sounds, Soft, Tenderness (Mild TTP in lower mid abdominal area). absent: Bruit, Diminished Bowel Sounds, Distended, Firm, Guarding, Mass, Organomegaly, Rebound, Rigid - Extremities Exam Extremities exam: Positive for: normal inspection. Negative for: calf tenderness, pedal edema - Back Exam Back exam: NORMAL INSPECTION. absent: CVA tenderness (L), CVA tenderness (R), muscle spasm, paraspinal tenderness, rash noted, tenderness, vertebral tenderness - Neurological Exam Neurological exam: Alert, Oriented x3 - Psychiatric Exam Psychiatric exam: Normal Affect, Normal Mood - Skin Skin Exam: Dry, Normal Color, Warm Results - Vital Signs Recent Vital Signs: Last Vital Signs Temp 97.8 F 08/29/17 07:28 Pulse 96 H 08/29/17 07:28 Resp 18 08/29/17 07:28 BP 135/72 08/29/17 07:28 Pulse Ox 97 08/29/17 07:28 - Labs Result Diagrams: 08/29/17 06:25 08/29/17 06:25 Labs: Laboratory Results - last 24 hr 08/28/17 08/28/17 08/29/17 16:12 22:11 06:25 WBC 4.6 RBC 3.94 Hgb 10.9 L Hct 34.0 L MCV 86.3 MCH 27.7 MCHC 32.1 RDW 13.0 Plt Count 230 MPV 9.1 Gran % 61.3 Lymph % (Auto) 23.5 [place] % (Auto) 12.6 H Eos % (Auto) 2.2 Baso % (Auto) 0.4 Gran # 2.82 Lymph # (Auto) 1.1 L [place] # (Auto) 0.6 Eos # (Auto) 0.1 Baso # (Auto) 0.02 Sodium Potassium Chloride Carbon Dioxide Anion Gap BUN Creatinine Est GFR ( Amer) Est GFR (Non-Af Amer) POC Glucose (mg/dL) 79 79 Random Glucose Calcium Total Bilirubin AST ALT Alkaline Phosphatase Total Protein Albumin Globulin Albumin/Globulin Ratio 08/29/17 08/29/17 08/29/17 06:25 07:22 11:01 WBC RBC Hgb Hct MCV MCH MCHC RDW Plt Count MPV Gran % Lymph % (Auto) [place] % (Auto) Eos % (Auto) Baso % (Auto) Gran # Lymph # (Auto) [place] # (Auto) Eos # (Auto) Baso # (Auto) Sodium 138 Potassium 4.8 Chloride 104 Carbon Dioxide 25 Anion Gap 13 BUN 18 Creatinine 1.3 Est GFR ( Amer) > 60 Est GFR (Non-Af Amer) 54 POC Glucose (mg/dL) 76 119 H Random Glucose 84 Calcium 10.0 Total Bilirubin 0.6 AST 46 ALT 45 Alkaline Phosphatase 130 H Total Protein 7.5 Albumin 3.4 Globulin 4.1 Albumin/Globulin Ratio 0.8 L Assessment & Plan - Assessment and Plan (Free Text) Assessment: 72 year old male with past medical history significant for DM2, HTN, HLD, and multiple CVA's who presents with progressive general weakness and memory loss 2/ 2 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 There is mild dilatation of the infrarenal aorta, maximal diameter 2.6 cm. There is mural thrombus. There is medial displacement of curvilinear or atherosclerotic calcifications with contrast on either side suggesting distal dissection. There is no leak or adjacent inflammation. There is shotty adenopathy. - hemodynamically stable - Medical management: aggressive BP control - Recommend CTA in 6 months for surveillance - DVT/GI PPX - rest of management per primary team - Further recs per Dr Torres. - Date & Time Date: 08/29/17 Time: 13:59 <Kenneth Burks - Last Filed: 08/30/17 07:41> History of Present Illness - History of Present Illness History of Present Illness: PT is unable to perform activities of daily living on his own and vascular dementia. Meds - Medications Medications: Current Medications Aspirin (Aspirin Chewable) 81 mg PO DAILY [facility] Last Admin: 08/29/17 10:34 Dose: 81 mg Atorvastatin Calcium (Lipitor) 40 mg PO DIN [facility] Last Admin: 08/29/17 17:16 Dose: 40 mg Finasteride (Proscar) 5 mg PO DAILY [facility] Last Admin: 08/29/17 10:34 Dose: 5 mg Heparin Sodium (Porcine) (Heparin) 5,000 units SC Q8 [facility] PRN Reason: Protocol Last Admin: 08/30/17 05:27 Dose: 5,000 units Metoprolol Succinate (Toprol Xl) 12.5 mg PO BRK [facility] Last Admin: 08/29/17 08:21 Dose: 12.5 mg Pantoprazole Sodium (Protonix Ec Tab) 40 mg PO ACB [facility] Last Admin: 08/29/17 08:20 Dose: 40 mg Tamsulosin HCl (Flomax) 0.4 mg PO DAILY [facility] Last Admin: 08/29/17 10:34 Dose: 0.4 mg Results - Vital Signs Recent Vital Signs: Last Vital Signs Temp 98.0 F 08/30/17 07:29 Pulse 69 08/30/17 07:29 Resp 20 08/30/17 07:29 BP 109/72 08/30/17 07:29 Pulse Ox 98 08/30/17 07:29 - Labs Result Diagrams: 08/30/17 06:20 08/30/17 06:20 Labs: Laboratory Results - last 24 hr 08/29/17 08/29/17 08/29/17 11:01 16:00 21:02 WBC RBC Hgb Hct MCV MCH MCHC RDW Plt Count MPV Gran % Lymph % (Auto) [place] % (Auto) Eos % (Auto) Baso % (Auto) Gran # Lymph # (Auto) [place] # (Auto) Eos # (Auto) Baso # (Auto) Sodium Potassium Chloride Carbon Dioxide Anion Gap BUN Creatinine Est GFR ( Amer) Est GFR (Non-Af Amer) POC Glucose (mg/dL) 119 H 127 H 83 Random Glucose Calcium Total Bilirubin AST ALT Alkaline Phosphatase Total Protein Albumin Globulin Albumin/Globulin Ratio 08/30/17 08/30/17 08/30/17 04:12 06:20 06:20 WBC 3.8 L RBC 3.87 Hgb 10.7 L Hct 33.4 L MCV 86.3 MCH 27.6 MCHC 32.0 RDW 12.9 Plt Count 230 MPV 9.2 Gran % 57.9 Lymph % (Auto) 26.7 [place] % (Auto) 12.0 H Eos % (Auto) 2.9 Baso % (Auto) 0.5 Gran # 2.17 Lymph # (Auto) 1.0 L [place] # (Auto) 0.5 Eos # (Auto) 0.1 Baso # (Auto) 0.02 Sodium 138 Potassium 4.5 Chloride 104 Carbon Dioxide 26 Anion Gap 14 BUN 19 Creatinine 1.4 Est GFR ( Amer) > 60 Est GFR (Non-Af Amer) 50 POC Glucose (mg/dL) 87 Random Glucose 93 Calcium 9.8 Total Bilirubin 0.6 AST 64 H D ALT 54 Alkaline Phosphatase 136 H Total Protein 7.3 Albumin 3.4 Globulin 3.9 Albumin/Globulin Ratio 0.9 L 08/30/17 07:14 WBC RBC Hgb Hct MCV MCH MCHC RDW Plt Count MPV Gran % Lymph % (Auto) [place] % (Auto) Eos % (Auto) Baso % (Auto) Gran # Lymph # (Auto) [place] # (Auto) Eos # (Auto) Baso # (Auto) Sodium Potassium Chloride Carbon Dioxide Anion Gap BUN Creatinine Est GFR ( Amer) Est GFR (Non-Af Amer) POC Glucose (mg/dL) 88 Random Glucose Calcium Total Bilirubin AST ALT Alkaline Phosphatase Total Protein Albumin Globulin Albumin/Globulin Ratio
--- NOTE | 2017-08-29 20:12 | US ---
PROCEDURE: Bilateral carotid artery duplex ultrasound HISTORY: Carotid stenosis PHYSICIAN(S): Darrian Caraballo MD. TECHNIQUE: Duplex sonography and color-flow Doppler were used to evaluate the carotid bifurcations and limited segments of the vertebral arteries bilaterally. FINDINGS: There is mild diffuse smooth heterogeneous plaque noted at the carotid bifurcations bilaterally. The peak systolic velocity in the proximal right internal carotid artery is 72 cm/sec. This corresponds to a 20 to 39% proximal right ICA stenosis. Normal systolic velocities are noted in the proximal right external carotid artery. There is antegrade flow in the right vertebral artery. The peak systolic velocity in the proximal left internal carotid artery is 63 cm/sec. This corresponds to a 20 to 39% proximal left ICA stenosis. Mildly elevated systolic velocities are noted in the proximal left external carotid artery. There is antegrade flow in the left vertebral artery. IMPRESSION: 1. Bilateral 20-39% proximal ICA stenoses. 2. Antegrade flow in both vertebral arteries.
[2017-08-30 06:45] LABS: BASO # 0.02 K/mm3 (0.0-2.0); BASO % 0.5 % (0.0-3.0); EOS # 0.1 (0.0-0.7); EOS % 2.9 % (1.5-5.0); GRAN # 2.17 (1.4-6.5); GRAN % 57.9 % (50.0-68.0); HEMOGLOBIN 10.7 g/dL (14.0-18.0); LYMPH % 26.7 % (22.0-35.0); MEAN CELL VOLUME 86.3 fl (80.0-105.0); MEAN CORPUSCULAR HEMOGLOBIN 27.6 pg (25.0-35.0); MEAN PLATELET VOLUME 9.2 fl (7.0-11.0); MONO # 0.5 (0.1-0.6); RBC 3.87 10^6/uL (3.5-6.1); RED CELL DISTRIBUTION WIDTH 12.9 % (11.5-14.5); WHITE BLOOD COUNT 3.8 10^3/ul (4.5-11.0)
[2017-08-30 07:16] LABS: ALB/GLOB RATIO 0.9 (1.1-1.8); ALBUMIN 3.4 g/dL (3.0-4.8); ALT/SGPT 54 U/L (7-56); AST/SGOT 64 U/L (17-59); BLOOD UREA NITROGEN 19 mg/dL (7-21); CALCIUM 9.8 mg/dL (8.4-10.5); GFR AFRICAN-AMERICAN > 60; GFR NON-AFRICAN AMERICAN 50
--- NOTE | 2017-08-30 08:21 | CP.PCM.PN ---
Subjective - Date & Time of Evaluation Date of Evaluation: 08/30/17 Time of Evaluation: 08:14 - Subjective Subjective: Surgery PT s&e. NAEON. Denies pain. Difficult to communicate because of language barrier and baseline mentation. Objective - Vital Signs/Intake and Output Vital Signs (last 24 hours): Temp Pulse Resp BP Pulse Ox 98.0 F 69 20 109/72 98 08/30/17 07:29 08/30/17 07:29 08/30/17 07:29 08/30/17 07:29 08/30/17 07:29 Intake and Output: 08/30/17 08/30/17 06:59 18:59 Intake Total 780 Balance 780 - Medications Medications: Current Medications Aspirin (Aspirin Chewable) 81 mg PO DAILY [facility] Last Admin: 08/29/17 10:34 Dose: 81 mg Atorvastatin Calcium (Lipitor) 40 mg PO DIN [facility] Last Admin: 08/29/17 17:16 Dose: 40 mg Finasteride (Proscar) 5 mg PO DAILY [facility] Last Admin: 08/29/17 10:34 Dose: 5 mg Heparin Sodium (Porcine) (Heparin) 5,000 units SC Q8 [facility] PRN Reason: Protocol Last Admin: 08/30/17 05:27 Dose: 5,000 units Metoprolol Succinate (Toprol Xl) 12.5 mg PO BRK [facility] Last Admin: 08/29/17 08:21 Dose: 12.5 mg Pantoprazole Sodium (Protonix Ec Tab) 40 mg PO ACB [facility] Last Admin: 08/29/17 08:20 Dose: 40 mg Tamsulosin HCl (Flomax) 0.4 mg PO DAILY [facility] Last Admin: 08/29/17 10:34 Dose: 0.4 mg - Labs Labs: 08/30/17 06:20 08/30/17 06:20 APTT 47.2 Seconds (25.1-36.5) H 08/28/17 07:00 - Constitutional Appears: No Acute Distress, Cachectic - Head Exam Head Exam: ATRAUMATIC, NORMAL INSPECTION, NORMOCEPHALIC - Eye Exam Eye Exam: EOMI, Normal appearance, PERRL Pupil Exam: NORMAL ACCOMODATION, PERRL - ENT Exam ENT Exam: Mucous Membranes Moist, Normal Exam - Neck Exam Neck Exam: Full ROM, Normal Inspection. absent: Lymphadenopathy - Respiratory Exam Respiratory Exam: Clear to Ausculation Bilateral, NORMAL BREATHING PATTERN - Cardiovascular Exam Cardiovascular Exam: REGULAR RHYTHM, +S1, +S2. absent: Murmur - GI/Abdominal Exam GI & Abdominal Exam: Soft, Normal Bowel Sounds. absent: Tenderness, Mass, Pulsatile Mass, Rebound - Extremities Exam Extremities Exam: Full ROM, Normal Capillary Refill, Normal Inspection. 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 - CT Chest, Abdomen and Pelvis 08/26/2017 shows atherosclerotic calcifications in the aorta. There is mild dilatation of the infrarenal aorta, maximal diameter 2.6 cm. There is mural thrombus. There is medial displacement of curvilinear or atherosclerotic calcifications with contrast on either side suggesting distal dissection. There is no leak or adjacent inflammation. There is shotty adenopathy. - hemodynamically stable. Uncomplicated chronic infrarenal aortic dissection Type B -Pt is poor surgical candidate with multiple comorbidities. May not benefit from endovascular intervention. - Medical management: MOnitor VS - Recommend CTA in 6 months for surveillance. - DVT/GI PPX - rest of management per primary team - Further recs per Dr Torres.
[2017-08-30] MEDS ORDERED: Metoprolol Succinate 25 mg XL Tab PO SCH (09:03)
[2017-08-30] MEDS: Pantoprazole 40 mg EC Tab PO SCH (09:14)
[2017-08-30 14:42] VITALS: BP 125/56; PULSE 70; RESP 18; TEMP 98; O2SAT 99
--- NOTE | 2017-08-30 15:35 | CP.PCM.DIS ---
Provider - Provider Date of Admission: 08/26/17 22:46 Attending physician: Rylee Patterson MD Primary care physician: Mckayla Tuttle MD Consults: Urology: Peter Vascular Surgery: Brian Time Spent in preparation of Discharge (in minutes): 45 Hospital Course - Lab Results Lab Results: Most Recent Lab Values WBC 3.8 10^3/ul (4.5-11.0) L 08/30/17 06:20 RBC 3.87 10^6/uL (3.5-6.1) 08/30/17 06:20 Hgb 10.7 g/dL (14.0-18.0) L 08/30/17 06:20 Hct 33.4 % (42.0-52.0) L 08/30/17 06:20 MCV 86.3 fl (80.0-105.0) 08/30/17 06:20 MCH 27.6 pg (25.0-35.0) 08/30/17 06:20 MCHC 32.0 g/dl (31.0-37.0) 08/30/17 06:20 RDW 12.9 % (11.5-14.5) 08/30/17 06:20 Plt Count 230 10^3/uL (120.0-450.0) 08/30/17 06:20 MPV 9.2 fl (7.0-11.0) 08/30/17 06:20 Gran % 57.9 % (50.0-68.0) 08/30/17 06:20 Lymph % (Auto) 26.7 % (22.0-35.0) 08/30/17 06:20 [place] % (Auto) 12.0 % (1.0-6.0) H 08/30/17 06:20 Eos % (Auto) 2.9 % (1.5-5.0) 08/30/17 06:20 Baso % (Auto) 0.5 % (0.0-3.0) 08/30/17 06:20 Gran # 2.17 (1.4-6.5) 08/30/17 06:20 Lymph # (Auto) 1.0 (1.2-3.4) L 08/30/17 06:20 [place] # (Auto) 0.5 (0.1-0.6) 08/30/17 06:20 Eos # (Auto) 0.1 (0.0-0.7) 08/30/17 06:20 Baso # (Auto) 0.02 K/mm3 (0.0-2.0) 08/30/17 06:20 APTT 47.2 Seconds (25.1-36.5) H 08/28/17 07:00 Sodium 138 mmol/L (132-148) 08/30/17 06:20 Potassium 4.5 mmol/L (3.6-5.0) 08/30/17 06:20 Chloride 104 mmol/L (98-107) 08/30/17 06:20 Carbon Dioxide 26 mmol/L (21-33) 08/30/17 06:20 Anion Gap 14 (10-20) 08/30/17 06:20 BUN 19 mg/dL (7-21) 08/30/17 06:20 Creatinine 1.4 mg/dl (0.8-1.5) 08/30/17 06:20 Est GFR ( Amer) > 60 08/30/17 06:20 Est GFR (Non-Af Amer) 50 08/30/17 06:20 POC Glucose (mg/dL) 99 mg/dL (65-110) 08/30/17 11:24 Random Glucose 93 mg/dL (70-110) 08/30/17 06:20 Hemoglobin A1c 6.6 % (4.2-6.5) H 08/27/17 07:00 Calcium 9.8 mg/dL (8.4-10.5) 08/30/17 06:20 Phosphorus 4.0 mg/dL (2.5-4.5) 08/26/17 16:38 Magnesium 2.0 mg/dL (1.7-2.2) 08/26/17 16:38 Total Bilirubin 0.6 mg/dL (0.2-1.3) 08/30/17 06:20 AST 64 U/L (17-59) H D 08/30/17 06:20 ALT 54 U/L (7-56) 08/30/17 06:20 Alkaline Phosphatase 136 U/L (38-126) H 08/30/17 06:20 Total Creatine Kinase 46 U/L (35-230) 08/26/17 16:38 Troponin I < 0.01 ng/mL 08/26/17 16:38 Total Protein 7.3 g/dL (5.8-8.3) 08/30/17 06:20 Albumin 3.4 g/dL (3.0-4.8) 08/30/17 06:20 Globulin 3.9 gm/dL 08/30/17 06:20 Albumin/Globulin Ratio 0.9 (1.1-1.8) L 08/30/17 06:20 Free T4 1.18 ng/dL (0.78-2.19) 08/26/17 16:38 TSH 3rd Generation 4.96 mIU/mL (0.46-4.68) H 08/26/17 16:38 Urine Color Yellow (YELLOW) 08/27/17 19:40 Urine Appearance Clear (CLEAR) 08/27/17 19:40 Urine pH 6.5 (4.7-8.0) 08/27/17 19:40 Ur Specific [place] 1.015 (1.005-1.035) 08/27/17 19:40 Urine Protein Negative mg/dL (<30 mg/dL) 08/27/17 19:40 Urine Glucose (UA) Negative mg/dL (NEGATIVE) 08/27/17 19:40 Urine Ketones Negative mg/dL (NEGATIVE) 08/27/17 19:40 Urine Blood Negative (NEGATIVE) 08/27/17 19:40 Urine Nitrate Negative (NEGATIVE) 08/27/17 19:40 Urine Bilirubin Negative (NEGATIVE) 08/27/17 19:40 Urine Urobilinogen 0.2 E.U./dL (<1 E.U./dL) 08/27/17 19:40 Ur Leukocyte Esterase Negative [place]/uL (NEGATIVE) 08/27/17 19:40 Discharge Exam - Head Exam Head Exam: ATRAUMATIC, NORMOCEPHALIC Discharge Plan - Discharge Medications Prescriptions: Aspirin [Lo-Dose Aspirin EC] 81 mg PO DAILY #30 tablet. Atorvastatin [Lipitor] 40 mg PO DIN #30 tab Finasteride [Proscar] 5 mg PO DAILY #30 tab Metoprolol Succinate [Toprol XL] 25 mg PO BRK #30 tab Tamsulosin [Flomax] 0.4 mg PO DAILY #30 cap - Follow Up Plan Condition: FAIR Disposition: HOME/ ROUTINE Instructions: Abdominal Aortic Aneurysm, Aortic Aneurysm Repair, CT Scan, Abdomen/Pelvis, Constipation, Adult (DC), Peripheral Vascular (Arterial) Disease (DC), Lowering the Risk of Having Another Stroke, Caring for a Loved One After a Stroke Additional Instructions: 1. Continue to take Flomax and Proscar as prescribed 2. Continue to take all other medications as previously prescribed 3. Follow up with Dr. Torres within one month for monitoring of aortic aneurysm and possible dissection 4. Follow up with Dr. Green within one month for monitoring of BPH 5. Follow up with your primary care doctor within one week 6. Repeat Chest CT scan for pulmonary nodules in 6 months 7. Repeat Abdomen CT angiogram for aortic aneurysm in 6 months 8. For any new or worsening concerns, contact your PCP immediately or return to the ER Referrals: Sarah Torres MD [Staff Provider] - Mckayla Tuttle MD [Primary Care Provider] - Phoenix Green MD [Staff Provider] -
--- NOTE | 2017-08-30 16:36 | CP.PCM.DIS ---
<JeramieJovita - Last Filed: 08/30/17 16:33> Provider - Provider Date of Admission: 08/26/17 22:46 Attending physician: Rylee Patterson MD Primary care physician: Mckayla Tuttle MD Consults: Neuro Cardio Uro Vascular surgery Time Spent in preparation of Discharge (in minutes): 45 Diagnosis - Discharge Diagnosis (1) BPH (benign prostatic hyperplasia) Status: Acute (2) Dementia Status: Acute (3) Atherosclerosis Status: Acute Hospital Course - Lab Results Lab Results: Most Recent Lab Values WBC 3.8 10^3/ul (4.5-11.0) L 08/30/17 06:20 RBC 3.87 10^6/uL (3.5-6.1) 08/30/17 06:20 Hgb 10.7 g/dL (14.0-18.0) L 08/30/17 06:20 Hct 33.4 % (42.0-52.0) L 08/30/17 06:20 MCV 86.3 fl (80.0-105.0) 08/30/17 06:20 MCH 27.6 pg (25.0-35.0) 08/30/17 06:20 MCHC 32.0 g/dl (31.0-37.0) 08/30/17 06:20 RDW 12.9 % (11.5-14.5) 08/30/17 06:20 Plt Count 230 10^3/uL (120.0-450.0) 08/30/17 06:20 MPV 9.2 fl (7.0-11.0) 08/30/17 06:20 Gran % 57.9 % (50.0-68.0) 08/30/17 06:20 Lymph % (Auto) 26.7 % (22.0-35.0) 08/30/17 06:20 [place] % (Auto) 12.0 % (1.0-6.0) H 08/30/17 06:20 Eos % (Auto) 2.9 % (1.5-5.0) 08/30/17 06:20 Baso % (Auto) 0.5 % (0.0-3.0) 08/30/17 06:20 Gran # 2.17 (1.4-6.5) 08/30/17 06:20 Lymph # (Auto) 1.0 (1.2-3.4) L 08/30/17 06:20 [place] # (Auto) 0.5 (0.1-0.6) 08/30/17 06:20 Eos # (Auto) 0.1 (0.0-0.7) 08/30/17 06:20 Baso # (Auto) 0.02 K/mm3 (0.0-2.0) 08/30/17 06:20 APTT 47.2 Seconds (25.1-36.5) H 08/28/17 07:00 Sodium 138 mmol/L (132-148) 08/30/17 06:20 Potassium 4.5 mmol/L (3.6-5.0) 08/30/17 06:20 Chloride 104 mmol/L (98-107) 08/30/17 06:20 Carbon Dioxide 26 mmol/L (21-33) 08/30/17 06:20 Anion Gap 14 (10-20) 08/30/17 06:20 BUN 19 mg/dL (7-21) 08/30/17 06:20 Creatinine 1.4 mg/dl (0.8-1.5) 08/30/17 06:20 Est GFR ( Amer) > 60 08/30/17 06:20 Est GFR (Non-Af Amer) 50 08/30/17 06:20 POC Glucose (mg/dL) 99 mg/dL (65-110) 08/30/17 11:24 Random Glucose 93 mg/dL (70-110) 08/30/17 06:20 Hemoglobin A1c 6.6 % (4.2-6.5) H 08/27/17 07:00 Calcium 9.8 mg/dL (8.4-10.5) 08/30/17 06:20 Phosphorus 4.0 mg/dL (2.5-4.5) 08/26/17 16:38 Magnesium 2.0 mg/dL (1.7-2.2) 08/26/17 16:38 Total Bilirubin 0.6 mg/dL (0.2-1.3) 08/30/17 06:20 AST 64 U/L (17-59) H D 08/30/17 06:20 ALT 54 U/L (7-56) 08/30/17 06:20 Alkaline Phosphatase 136 U/L (38-126) H 08/30/17 06:20 Total Creatine Kinase 46 U/L (35-230) 08/26/17 16:38 Troponin I < 0.01 ng/mL 08/26/17 16:38 Total Protein 7.3 g/dL (5.8-8.3) 08/30/17 06:20 Albumin 3.4 g/dL (3.0-4.8) 08/30/17 06:20 Globulin 3.9 gm/dL 08/30/17 06:20 Albumin/Globulin Ratio 0.9 (1.1-1.8) L 08/30/17 06:20 Free T4 1.18 ng/dL (0.78-2.19) 08/26/17 16:38 TSH 3rd Generation 4.96 mIU/mL (0.46-4.68) H 08/26/17 16:38 Urine Color Yellow (YELLOW) 08/27/17 19:40 Urine Appearance Clear (CLEAR) 08/27/17 19:40 Urine pH 6.5 (4.7-8.0) 08/27/17 19:40 Ur Specific [place] 1.015 (1.005-1.035) 08/27/17 19:40 Urine Protein Negative mg/dL (<30 mg/dL) 08/27/17 19:40 Urine Glucose (UA) Negative mg/dL (NEGATIVE) 08/27/17 19:40 Urine Ketones Negative mg/dL (NEGATIVE) 08/27/17 19:40 Urine Blood Negative (NEGATIVE) 08/27/17 19:40 Urine Nitrate Negative (NEGATIVE) 08/27/17 19:40 Urine Bilirubin Negative (NEGATIVE) 08/27/17 19:40 Urine Urobilinogen 0.2 E.U./dL (<1 E.U./dL) 08/27/17 19:40 Ur Leukocyte Esterase Negative [place]/uL (NEGATIVE) 08/27/17 19:40 - Hospital Course Hospital Course: 72 year old male with past medical history significant for DM2, HTN, HLD, and multiple CVA's who initially presented with urinary incontinence, progressive generalized weakness, and memory loss. CT Head done in the ER showed age indeterminate lacunar infarcts of left thalamus and basal ganglia as well as posterior left parietal lobe. MRI done as an outpatient showed large old left parietal-posterior parietal cortical subcortical infarct, multiple bilateral cerebral lacunar infarcts including the basal ganglia and left thalamus, lacunar infarct in the brainstem, old large right cerebellar infarct with evidence of prior hemorrhage, atrophy of the cerebellar hemispheres and brainstem and bilateral hippocampal atrophy more prominently on the left side. Generalized weakness and memory loss was determined to be due to chronic, progressive, vascular dementia. Patient was also noted to have possible chronic abdominal aortic dissection, though was stable and asymptomatic, and was managed with aggressive BP control, per vascular surgery's recommendations. Patient's urinary incontinence was likely 2/2 overflow, and BPH, and improved with Proscar and Flomax. Patient was also noted to have multiple small pulmonary nodules on chest CT, and will require repeat chest CT in 6 months for monitoring. Today, patient feels better overall, and was requesting to be discharged home. His urinary incontinence has resolved with Proscar and Flomax. He was seen by physical therapy who recommended that he be discharged home. He denies any chest pain, abdominal pain, shortness of breath, dizziness, headache, palpitations, fever, chills, nausea, vomiting, diarrhea, constipation. He was given new prescriptions for all his medications, as well as for repeat CT scan of the chest in 6 months, and repeat CTA of the abdomen in 6 months. He was also given instructions for follow up. All this was also explained to his daughter who acts as his senior ui designer. All questions were answered to his and his daughter's satisfaction, and he was discharged to home. Discharge Exam - Head Exam Head Exam: ATRAUMATIC, NORMOCEPHALIC - Eye Exam Eye Exam: EOMI, Normal appearance, PERRL - ENT Exam ENT Exam: Mucous Membranes Moist - Neck Exam Neck exam: Full Rom, Normal Inspection - Respiratory Exam Respiratory Exam: Clear to PA & Lateral, NORMAL BREATHING PATTERN - Cardiovascular Exam Cardiovascular Exam: RRR, +S1, +S2 - GI/Abdominal Exam GI & Abdominal Exam: Normal Bowel Sounds, Soft. absent: Pulsatile Mass, Rebound , Rigid, Tenderness - Extremities Exam Extremities exam: normal capillary refill, normal inspection, pedal pulses present - Neurological Exam Neurological exam: Alert, CN II-XII Intact, Normal Gait Additional comments: Oriented to person and place - Psychiatric Exam Psychiatric exam: Normal Affect, Normal Mood - Skin Skin Exam: Dry, Intact, Normal Color Discharge Plan - Discharge Medications Prescriptions: Aspirin [Lo-Dose Aspirin EC] 81 mg PO DAILY #30 tablet. Atorvastatin [Lipitor] 40 mg PO DIN #30 tab Finasteride [Proscar] 5 mg PO DAILY #30 tab Metoprolol Succinate [Toprol XL] 25 mg PO BRK #30 tab Tamsulosin [Flomax] 0.4 mg PO DAILY #30 cap - Follow Up Plan Condition: FAIR Disposition: HOME/ ROUTINE Instructions: Abdominal Aortic Aneurysm, Aortic Aneurysm Repair, CT Scan, Abdomen/Pelvis, Constipation, Adult (DC), Peripheral Vascular (Arterial) Disease (DC), Lowering the Risk of Having Another Stroke, Caring for a Loved One After a Stroke Additional Instructions: 1. Continue to take Flomax and Proscar as prescribed 2. Continue to take all other medications as previously prescribed 3. Follow up with Dr. Torres within one month for monitoring of aortic aneurysm and possible dissection 4. Follow up with Dr. Green within one month for monitoring of BPH 5. Follow up with your primary care doctor within one week 6. Repeat Chest CT scan for pulmonary nodules in 6 months 7. Repeat Abdomen CT angiogram for aortic aneurysm in 6 months 8. For any new or worsening concerns, contact your PCP immediately or return to the ER Referrals: Sarah Torres MD [Staff Provider] - Mckayla Tuttle MD [Primary Care Provider] - Phoenix Green MD [Staff Provider] - <Papo Prieto - Last Filed: 08/31/17 15:08> Provider - Provider Date of Admission: 08/26/17 22:46 Attending physician: Rylee Patterson MD Primary care physician: Mckayla Tuttle MD Hospital Course - Lab Results Lab Results: Most Recent Lab Values WBC 3.8 10^3/ul (4.5-11.0) L 08/30/17 06:20 RBC 3.87 10^6/uL (3.5-6.1) 08/30/17 06:20 Hgb 10.7 g/dL (14.0-18.0) L 08/30/17 06:20 Hct 33.4 % (42.0-52.0) L 08/30/17 06:20 MCV 86.3 fl (80.0-105.0) 08/30/17 06:20 MCH 27.6 pg (25.0-35.0) 08/30/17 06:20 MCHC 32.0 g/dl (31.0-37.0) 08/30/17 06:20 RDW 12.9 % (11.5-14.5) 08/30/17 06:20 Plt Count 230 10^3/uL (120.0-450.0) 08/30/17 06:20 MPV 9.2 fl (7.0-11.0) 08/30/17 06:20 Gran % 57.9 % (50.0-68.0) 08/30/17 06:20 Lymph % (Auto) 26.7 % (22.0-35.0) 08/30/17 06:20 [place] % (Auto) 12.0 % (1.0-6.0) H 08/30/17 06:20 Eos % (Auto) 2.9 % (1.5-5.0) 08/30/17 06:20 Baso % (Auto) 0.5 % (0.0-3.0) 08/30/17 06:20 Gran # 2.17 (1.4-6.5) 08/30/17 06:20 Lymph # (Auto) 1.0 (1.2-3.4) L 08/30/17 06:20 [place] # (Auto) 0.5 (0.1-0.6) 08/30/17 06:20 Eos # (Auto) 0.1 (0.0-0.7) 08/30/17 06:20 Baso # (Auto) 0.02 K/mm3 (0.0-2.0) 08/30/17 06:20 APTT 47.2 Seconds (25.1-36.5) H 08/28/17 07:00 Sodium 138 mmol/L (132-148) 08/30/17 06:20 Potassium 4.5 mmol/L (3.6-5.0) 08/30/17 06:20 Chloride 104 mmol/L (98-107) 08/30/17 06:20 Carbon Dioxide 26 mmol/L (21-33) 08/30/17 06:20 Anion Gap 14 (10-20) 08/30/17 06:20 BUN 19 mg/dL (7-21) 08/30/17 06:20 Creatinine 1.4 mg/dl (0.8-1.5) 08/30/17 06:20 Est GFR ( Amer) > 60 08/30/17 06:20 Est GFR (Non-Af Amer) 50 08/30/17 06:20 POC Glucose (mg/dL) 99 mg/dL (65-110) 08/30/17 11:24 Random Glucose 93 mg/dL (70-110) 08/30/17 06:20 Hemoglobin A1c 6.6 % (4.2-6.5) H 08/27/17 07:00 Calcium 9.8 mg/dL (8.4-10.5) 08/30/17 06:20 Phosphorus 4.0 mg/dL (2.5-4.5) 08/26/17 16:38 Magnesium 2.0 mg/dL (1.7-2.2) 08/26/17 16:38 Total Bilirubin 0.6 mg/dL (0.2-1.3) 08/30/17 06:20 AST 64 U/L (17-59) H D 08/30/17 06:20 ALT 54 U/L (7-56) 08/30/17 06:20 Alkaline Phosphatase 136 U/L (38-126) H 08/30/17 06:20 Total Creatine Kinase 46 U/L (35-230) 08/26/17 16:38 Troponin I < 0.01 ng/mL 08/26/17 16:38 Total Protein 7.3 g/dL (5.8-8.3) 08/30/17 06:20 Albumin 3.4 g/dL (3.0-4.8) 08/30/17 06:20 Globulin 3.9 gm/dL 08/30/17 06:20 Albumin/Globulin Ratio 0.9 (1.1-1.8) L 08/30/17 06:20 Free T4 1.18 ng/dL (0.78-2.19) 08/26/17 16:38 TSH 3rd Generation 4.96 mIU/mL (0.46-4.68) H 08/26/17 16:38 Urine Color Yellow (YELLOW) 08/27/17 19:40 Urine Appearance Clear (CLEAR) 08/27/17 19:40 Urine pH 6.5 (4.7-8.0) 08/27/17 19:40 Ur Specific [place] 1.015 (1.005-1.035) 08/27/17 19:40 Urine Protein Negative mg/dL (<30 mg/dL) 08/27/17 19:40 Urine Glucose (UA) Negative mg/dL (NEGATIVE) 08/27/17 19:40 Urine Ketones Negative mg/dL (NEGATIVE) 08/27/17 19:40 Urine Blood Negative (NEGATIVE) 08/27/17 19:40 Urine Nitrate Negative (NEGATIVE) 08/27/17 19:40 Urine Bilirubin Negative (NEGATIVE) 08/27/17 19:40 Urine Urobilinogen 0.2 E.U./dL (<1 E.U./dL) 08/27/17 19:40 Ur Leukocyte Esterase Negative [place]/uL (NEGATIVE) 08/27/17 19:40 Attending/Attestation - Attestation I have personally seen and examined this patient.: Yes I have fully participated in the care of the patient.: Yes I have reviewed all pertinent clinical information, including history, physical exam and plan: Yes Notes (Text): 72 year old male with past medical history significant for DM2, HTN, HLD, and multiple CVA's who initially presented with urinary incontinence, progressive generalized weakness, and memory loss. CT Head done in the ER showed age indeterminate lacunar infarcts of left thalamus and basal ganglia as well as posterior left parietal lobe. MRI done as an outpatient showed large old left parietal-posterior parietal cortical subcortical infarct, multiple bilateral cerebral lacunar infarcts including the basal ganglia and left thalamus, lacunar infarct in the brainstem, old large right cerebellar infarct with evidence of prior hemorrhage, atrophy of the cerebellar hemispheres and brainstem and bilateral hippocampal atrophy more prominently on the left side. Generalized weakness and memory loss was determined to be due to chronic, progressive, vascular dementia. Patient was also noted to have possible chronic abdominal aortic dissection, though was stable and asymptomatic, and was managed with aggressive BP control, per vascular surgery's recommendations. Patient's urinary incontinence was likely 2/2 overflow, and BPH, and improved with Proscar and Flomax. Patient was also noted to have multiple small pulmonary nodules on chest CT, and will require repeat chest CT in 6 months for monitoring.
== END 2017-08-30 18:13 | disposition home or self-care (01) | DRG 570 ==
LOC: ED 15:57 → ERH 22:46 → 5RNO 08-27 01:43
PROVIDERS: ADMIT Internal Medicine; ATTEND Internal Medicine
DX: N40.1 Benign prostatic hyperplasia with lower urinary tract symptoms (principal); I71.02 Dissection of abdominal aorta; E11.51 Type 2 diabetes mellitus with diabetic peripheral angiopathy without gangrene; N39.498 Other specified urinary incontinence; F01.50 Vascular dementia, unspecified severity, without behavioral disturbance, psychotic disturbance, mood disturbance, and anxiety; I70.0 Atherosclerosis of aorta; I10 Essential (primary) hypertension; E78.5 Hyperlipidemia, unspecified; R91.8 Other nonspecific abnormal finding of lung field; R53.83 Other fatigue; R63.4 Abnormal weight loss; Z68.1 Body mass index [BMI] 19.9 or less, adult; I69.311 Memory deficit following cerebral infarction

== ENCOUNTER 2017-10-17 11:55 | Inpatient (IN) | payer MEDICAID ==
[2017-10-17 12:09] VITALS: BMI 18.0
--- NOTE | 2017-10-17 12:28 | RAD ---
HISTORY: Sepsis Patient COMPARISON: 08/26/2017 FINDINGS: LUNGS: There is chronic interstitial disease that appears slightly increased PLEURA: No significant pleural effusion identified, no pneumothorax apparent. CARDIOVASCULAR: Normal. OSSEOUS STRUCTURES: No significant abnormalities. VISUALIZED UPPER ABDOMEN: Normal. OTHER FINDINGS: None. IMPRESSION: Slight increase in interstitial infiltrate
--- NOTE | 2017-10-17 13:43 | ED PDOC ---
Arrival/HPI - General Chief Complaint: Male Genitourinary Time Seen by Provider: 10/17/17 12:03 Historian: Family - History of Present Illness Narrative History of Present Illness (Text): 10/17/17 12:00 A 72 year old male, whose past medical history includes , presents to the emergency department for urinary incontinence. Per family, patient was recently discharge 09/30/17 from the hospital for urinary incontinence. However, since patient was discharged, patient has not been himself. Patient has had increasing episodes of agitation, has more fatigue than usual and has become non -communicative to family members. Patient also is no longer performing independent activities, such as feeding himself, no longer ambulating (normally ambulates with assistance). PMD: Dr. Mckayla Tuttle Past Medical History - Provider Review Nursing Documentation Reviewed: Yes - Infectious Disease Hx of Infectious Diseases: None - Tetanus Immunization Tetanus Immunization: Up to Date - Cardiac Hx Hypertension: Yes - Pulmonary Hx Respiratory Disorders: No - Neurological HX Cerebrovascular Accident: Yes (x 4) - HEENT Hx HEENT Disorder: Yes (glasses for reading) - Renal Hx Renal Disorder: No - Endocrine/Metabolic Hx Diabetes Mellitus Type 2: Yes - Hematological/Oncological Hx Anemia: Yes - Integumentary Hx Dermatological Disorder: No - Musculoskeletal/Rheumatological Hx Falls: No - Gastrointestinal Hx Gastrointestinal Disorders: No - Genitourinary/Gynecological Hx Genitourinary Disorders: No - Psychiatric Hx Depression: No Hx Emotional Abuse: No Hx Physical Abuse: No Hx Substance Use: No - Past Surgical History Past Surgical History: No Previous - Suicidal Assessment Feels Threatened In Home Enviroment: No Family/Social History - Physician Review Nursing Documentation Reviewed: Yes Family/Social History: No Known Family HX Smoking Status: Never Smoked Hx Alcohol Use: No Hx Substance Use: No Hx Substance Use Treatment: No Allergies/Home Meds Allergies/Adverse Reactions: Allergies No Known Allergies Allergy (Verified 10/17/17 12:51) Review of Systems - Physician Review All systems were reviewed & negative as marked: Yes - Review of Systems Systems not reviewed;Unavailable: Dementia Constitutional: Normal Eyes: Normal ENT: Normal Respiratory: Normal Cardiovascular: Normal Gastrointestinal: Appetite Changes, Anorexia Genitourinary Male: Other (urinary incontinence) Musculoskeletal: Normal Skin: Normal Neurological: Normal, Dizziness Endocrine: Normal Hemo/Lymphatic: Normal Psychiatric: Other (increased episodes of agitation, no longer performing independantly regular acitivies.) Physical Exam Vital Signs Reviewed: Yes Vital Signs Temp Pulse Resp BP Pulse Ox 10/17/17 12:08 98.0 F 73 18 126/73 100 Temperature: Afebrile Blood Pressure: Normal Pulse: Regular Respiratory Rate: Normal Appearance: Positive for: Well-Appearing Pain Distress: None Mental Status: Positive for: Confused - Systems Exam Head: Present: Atraumatic, Normocephalic Pupils: Present: PERRL Extroacular Muscles: Present: EOMI Conjunctiva: Present: Normal Mouth: Present: Moist Mucous Membranes Neck: Present: Normal Range of Motion Respiratory/Chest: Present: Good Air Exchange, Other (decreased bs bbasilarly ) . No: Respiratory Distress, Accessory Muscle Use Cardiovascular: Present: Regular Rate and Rhythm, Normal S1, S2. No: Murmurs Abdomen: No: Tenderness, Distention, Peritoneal Signs Back: Present: Normal Inspection Upper Extremity: Present: Normal Inspection. No: Cyanosis, Edema Lower Extremity: Present: Normal Inspection. No: Edema Neurological: Present: GCS=15, CN II-XII Intact, Speech Normal, Motor Func Grossly Intact, Normal Sensory Function, Normal Cerebellar Funct, Norm Deep Tendon Reflexes Skin: Present: Warm, Dry, Normal Color. No: Rashes Psychiatric: Present: Alert, Normal Insight, Normal Concentration Medical Decision Making ED Course and Treatment: 10/17/17 12:04 Impression: 72 year old male with urinary incontinence. Plan: -- EKG -- Chest X-ray -- Labs -- Venous Blood gas -- Lactated Ringer's -- Blood Culture -- Urinalysis -- Urine Culture -- Reassess and disposition Prior Visits: Notes and results from previous visits were reviewed. Patient was last seen in the emergency department on 08/26/2017 for 4 months of increased forgetfulness, weight loss, and generalized fatigue. Patient was admitted. Progress Notes: 10/17/2017 12:27 Chest X-ray IMPRESSION: Slight increase in interstitial infiltrate. Dictator: Otoniel Elliott MD - Lab Interpretations Lab Results: 10/17/17 13:30 10/17/17 13:30 Lab Results 10/17/17 20:32: Urine Color Yellow, Urine Appearance Clear, Urine pH 7.0, Ur Specific [place] 1.020, Urine Protein Negative, Urine Glucose (UA) Negative, Urine Ketones Negative, Urine Blood Trace-lysed H, Urine Nitrate Negative, Urine Bilirubin Negative, Urine Urobilinogen 0.2, Ur Leukocyte Esterase Negative , Urine RBC 2 - 5, Urine WBC 0 - 2, Ur Epithelial Cells 0 - 2, Urine Bacteria Mod 10/17/17 13:30: Sodium 132, Chloride 98, Potassium 3.6, Carbon Dioxide 27, Anion Gap 10, BUN 23 H, Creatinine 0.9, Est GFR ( Amer) > 60, Est GFR ( Non-Af Amer) > 60, Random Glucose 98, Calcium 9.4, Phosphorus 4.0, Magnesium 1.8 , Total Bilirubin 0.5, AST 61 H, ALT 64 H, Alkaline Phosphatase 208 H D, Troponin I < 0.01, NT-Pro-B Natriuret Pep 982 H, Total Protein 6.6, Albumin 2.9 L, Globulin 3.6, Albumin/Globulin Ratio 0.8 L 10/17/17 13:30: pO2 38, VBG pH 7.38, VBG pCO2 46.0, VBG HCO3 27.2, VBG Total CO2 28.6 H, VBG O2 Sat (Calc) 75.1 H, VBG Base Excess 1.5, VBG Potassium 3.7, Sodium 132.0, Chloride 101.0, Glucose 99, Lactate 1.1, FiO2 21.0, Venous Blood Potassium 3.7 10/17/17 13:30: PT 13.1 H, INR 1.14 H, APTT 34.6 10/17/17 13:30: WBC 6.2 D, RBC 3.74, Hgb 9.5 L, Hct 29.3 L, MCV 78.3 L D, MCH 25.4, MCHC 32.4, RDW 13.9, Plt Count 251, MPV 8.7, Gran % 82.4 H, Lymph % (Auto ) 8.8 L, [place] % (Auto) 8.6 H, Eos % (Auto) 0.0 L, Baso % (Auto) 0.2, Gran # 5.09 , Lymph # (Auto) 0.5 L, [place] # (Auto) 0.5, Eos # (Auto) 0.0, Baso # (Auto) 0.01 I have reviewed the lab results: Yes - RAD Interpretation Radiology Orders: 10/17/17 12:04 CHEST PORTABLE [RAD] Stat 10/17/17 15:25 HEAD W/O CONTRAST [CT] Stat - Medication Orders Current Medication Orders: Aspirin (Ecotrin) 81 mg PO DAILY VALERIA Atorvastatin Calcium (Lipitor) 40 mg PO DIN [facility] Last Admin: 10/17/17 20:23 Dose: Not Given Non-Admin Reason: Patient Refused Finasteride (Proscar) 5 mg PO DAILY [facility] Dextrose/Sodium Chloride (Dextrose 5%/0.9% Ns 1000 Ml) 1,000 mls @ 60 mls/hr IV .[id number] VALERIA Last Admin: 10/17/17 20:22 Dose: 60 mls/hr eMAR Start Stop Document 10/17/17 20:22 SS (Rec: 10/17/17 20:22 SS [id number]) Intravenous Solution Start Date 10/17/17 Start Time 20:22 Metoprolol Succinate (Toprol Xl) 25 mg PO BRK VALERIA Pantoprazole Sodium (Protonix Inj) 40 mg IVP DAILY [facility] Tamsulosin HCl (Flomax) 0.4 mg PO DAILY VALERIA Discontinued Medications Lactated Ringer's 1,000 ml/ IV (SUPPLIES) 1,000 mls @ 0 mls/hr IV ONCE ONE PRN Reason: 60 ML/KG/HR Stop: 10/17/17 12:05 Last Admin: 10/17/17 13:47 Dose: 1,000 mls/hr eMAR Start Stop Document 10/17/17 13:47 MR (Rec: 10/17/17 13:48 MR [id number]) Intravenous Solution Start Date 10/17/17 Start Time 13:48 End Date 10/17/17 End time 14:48 Total Infusion Time 60 - Scribe Statement The provider has reviewed the documentation as recorded by the Codi Abad Provider Scribe Attestation: All medical record entries made by the Scribe were at my direction and personally dictated by me. I have reviewed the chart and agree that the record accurately reflects my personal performance of the history, physical exam, medical decision making, and the department course for this patient. I have also personally directed, reviewed, and agree with the discharge instructions and disposition. Disposition/Present on Arrival - Present on Arrival Any Indicators Present on Arrival: No History of DVT/PE: No History of Uncontrolled Diabetes: No Urinary Catheter: No History of Decub. Ulcer: No History Surgical Site Infection Following: None - Disposition Have Diagnosis and Disposition been Completed?: Yes Diagnosis: Bacteriuria, Altered mental status, Dementia Disposition: HOSPITALIZED Disposition Time: 15:20 Patient Plan: Admission Condition: GUARDED Referrals: Mckayla Tuttle MD [Primary Care Provider] - Follow up with primary Forms: [employer] (Vietnamese)
[2017-10-17 13:55] LABS: VENOUS BLOOD GAS BASE EXCESS 1.5 mmol/L (0.0-2.0); VENOUS BLOOD GAS PO2 38 mm/Hg (30-55); VENOUS BLOOD PH 7.38 (7.32-7.43)
[2017-10-17 13:56] LABS: BASO # 0.01 K/mm3 (0.0-2.0); BASO % 0.2 % (0.0-3.0); GRAN # 5.09 (1.4-6.5); GRAN % 82.4 % (50.0-68.0); HEMOGLOBIN 9.5 g/dL (14.0-18.0); LYMPH # 0.5 (1.2-3.4); LYMPH % 8.8 % (22.0-35.0); MEAN CELL VOLUME 78.3 fl (80.0-105.0); MEAN CORPUSCULAR HEMOGLOBIN 25.4 pg (25.0-35.0); MEAN CORPUSCULAR HGB CONC 32.4 g/dl (31.0-37.0); MEAN PLATELET VOLUME 8.7 fl (7.0-11.0); MONO # 0.5 (0.1-0.6); MONO % 8.6 % (1.0-6.0); RBC 3.74 10^6/uL (3.5-6.1); RED CELL DISTRIBUTION WIDTH 13.9 % (11.5-14.5); WHITE BLOOD COUNT 6.2 10^3/ul (4.5-11.0)
[2017-10-17 14:05] LABS: ALB/GLOB RATIO 0.8 (1.1-1.8); ALBUMIN 2.9 g/dL (3.0-4.8); ALT/SGPT 64 U/L (7-56); AST/SGOT 61 U/L (17-59); BLOOD UREA NITROGEN 23 mg/dL (7-21); CALCIUM 9.4 mg/dL (8.4-10.5); GFR AFRICAN-AMERICAN > 60; GFR NON-AFRICAN AMERICAN > 60; INR 1.14 (0.93-1.08); PARTIAL THROMBOPLASTIN TIME 34.6 Seconds (25.1-36.5); PROTHROMBIN TIME 13.1 SECONDS (9.4-12.5)
[2017-10-17 14:17] LABS: B-TYPE NATRIURETIC PEPTIDE 982 pg/mL (0-450); TROPONIN I < 0.01 ng/mL
--- NOTE | 2017-10-17 16:55 | CP.PCM.HP ---
<Malik Juarez - Last Filed: 10/17/17 16:49> History of Present Illness - History of Present Illness History of Present Illness: H&P note for hospitalist service - Toi Juarez PGY2 cc: altered mental status HPI: Patient is a 72yo male with history of HTN, HLD, CVA, urinary incontinence and vascular dementia brought to [facility] by his son with reports of altered mental status, generalized weakness, loss of functional status and urinary incontinence. History limited from patient. Per son, patient had been discharged from [facility] approximately a month prior and was treated at that time for urinary incontinence. Upon discharge home, he reports that his father was independent with his ADL's however several days after discharge he began to decline and ultimately required complete care by aid of his family. He reportedly could no longer recognize his family, had lack of appetite and continued to have issues with urinary incontinence. He had been brought to see Dr. Green (urology) on and was instructed to come to [facility] for further evaluation/management. ROS limited due to patient status. PMH: DM2, HTN, HLD, Hx of CVA, urinary incontinence, vascular dementia PSH: Denies Allergies: NKDA Social Hx: Former tobacco use, denies alcohol and illicit drug use Family Hx: Non-contributory PMD: DR. Mckayla Tuttle Present on Admission - Present on Admission Any Indicators Present on Admission: No Past Patient History - Infectious Disease Hx of Infectious Diseases: None - Tetanus Immunizations Tetanus Immunization: Up to Date - Past Social History Smoking Status: Never Smoked - CARDIAC Hx Hypertension: Yes - PULMONARY Hx Respiratory Disorders: No - NEUROLOGICAL HX Cerebrovascular Accident: Yes (x 4) - HEENT Hx HEENT Problems: Yes (glasses for reading) - RENAL Hx Chronic Kidney Disease: No - ENDOCRINE/METABOLIC Hx Diabetes Mellitus Type 2: Yes - HEMATOLOGICAL/ONCOLOGICAL Hx Anemia: Yes - INTEGUMENTARY Hx Dermatological Problems: No - MUSCULOSKELETAL/RHEUMATOLOGICAL Hx Falls: No - GASTROINTESTINAL Hx Gastrointestinal Disorders: No - GENITOURINARY/GYNECOLOGICAL Hx Genitourinary Disorders: No - PSYCHIATRIC Hx Depression: No Hx Emotional Abuse: No Hx Physical Abuse: No Hx Substance Use: No - SURGICAL HISTORY Hx Surgeries: No Meds Allergies/Adverse Reactions: Allergies Allergy/AdvReac Type Severity Reaction Status Date / Time No Known Allergies Allergy Verified 10/17/17 12:51 Physical Exam - Constitutional Appears: No Acute Distress, Chronically Ill - Head Exam Head Exam: ATRAUMATIC, NORMOCEPHALIC - Eye Exam Eye Exam: EOMI, PERRL - ENT Exam ENT Exam: Mucous Membranes Moist - Neck Exam Neck exam: Positive for: Normal Inspection - Respiratory Exam Respiratory Exam: absent: Rales, Rhonchi, Wheezes - Cardiovascular Exam Cardiovascular Exam: RRR, +S1, +S2. absent: Gallop, JVD, Rubs - GI/Abdominal Exam GI & Abdominal Exam: Soft. absent: Distended, Firm, Guarding, Rebound, Tenderness - Extremities Exam Extremities exam: Positive for: normal inspection. Negative for: pedal edema - Neurological Exam Additional comments: alert but oriented only to person moves all extremities spontaneously EOMI PERRL gait deferred unable to participate in full neuro examination - Skin Skin Exam: Dry, Intact, Normal Color, Warm Results - Vital Signs Recent Vital Signs: Last Vital Signs Temp 98.0 F 10/17/17 12:08 Pulse 73 10/17/17 12:08 Resp 18 10/17/17 12:08 BP 126/73 10/17/17 12:08 Pulse Ox 100 10/17/17 12:08 - Labs Result Diagrams: 10/17/17 13:30 10/17/17 13:30 Labs: Laboratory Results - last 24 hr 10/17/17 10/17/17 10/17/17 13:30 13:30 13:30 WBC 6.2 D RBC 3.74 Hgb 9.5 L Hct 29.3 L MCV 78.3 L D MCH 25.4 MCHC 32.4 RDW 13.9 Plt Count 251 MPV 8.7 Gran % 82.4 H Lymph % (Auto) 8.8 L Gibson % (Auto) 8.6 H Eos % (Auto) 0.0 L Baso % (Auto) 0.2 Gran # 5.09 Lymph # (Auto) 0.5 L Gibson # (Auto) 0.5 Eos # (Auto) 0.0 Baso # (Auto) 0.01 PT 13.1 H INR 1.14 H APTT 34.6 pO2 38 VBG pH 7.38 VBG pCO2 46.0 VBG HCO3 27.2 VBG Total CO2 28.6 H VBG O2 Sat (Calc) 75.1 H VBG Base Excess 1.5 VBG Potassium 3.7 Sodium 132.0 Chloride 101.0 Glucose 99 Lactate 1.1 FiO2 21.0 Potassium Carbon Dioxide Anion Gap BUN Creatinine Est GFR ( Amer) Est GFR (Non-Af Amer) Random Glucose Calcium Phosphorus Magnesium Total Bilirubin AST ALT Alkaline Phosphatase Troponin I NT-Pro-B Natriuret Pep Total Protein Albumin Globulin Albumin/Globulin Ratio Venous Blood Potassium 3.7 10/17/17 13:30 WBC RBC Hgb Hct MCV MCH MCHC RDW Plt Count MPV Gran % Lymph % (Auto) Gibson % (Auto) Eos % (Auto) Baso % (Auto) Gran # Lymph # (Auto) Gibson # (Auto) Eos # (Auto) Baso # (Auto) PT INR APTT pO2 VBG pH VBG pCO2 VBG HCO3 VBG Total CO2 VBG O2 Sat (Calc) VBG Base Excess VBG Potassium Sodium 132 Chloride 98 Glucose Lactate FiO2 Potassium 3.6 Carbon Dioxide 27 Anion Gap 10 BUN 23 H Creatinine 0.9 Est GFR ( Amer) > 60 Est GFR (Non-Af Amer) > 60 Random Glucose 98 Calcium 9.4 Phosphorus 4.0 Magnesium 1.8 Total Bilirubin 0.5 AST 61 H ALT 64 H Alkaline Phosphatase 208 H D Troponin I < 0.01 NT-Pro-B Natriuret Pep 982 H Total Protein 6.6 Albumin 2.9 L Globulin 3.6 Albumin/Globulin Ratio 0.8 L Venous Blood Potassium Assessment & Plan - Assessment and Plan (Free Text) Plan: 72yo male with history of HTN, HLD, CVA, vascular dementia and urinary incontinence presents with altered mental status, progressive weakness and urinary incontinence 1. Altered mental status -Etiology unclear at this point however could be new CVA vs progressive vascular dementia vs UTI -CT Head pending -UA pending -CXR and EKG reviewed -Troponin negative x1 -afebrile, no leukocytosis -Aspiration precautions/Fall precautions -PT/OT -Speech/swallow eval -Continue ASA and lipitor -NPO -Neuro consult - Dr. Weinberg 2. Urinary incontinence -Continue flomax and proscar -Urology consulted - Dr. Green 3. HTN -Continue home metoprolol 4. GI/DVT Prophylaxis -protonix/scd's patient seen and case discussed with attending, Dr. Patterson <Rylee Patterson - Last Filed: 10/18/17 13:31> Results - Vital Signs Recent Vital Signs: Last Vital Signs Temp 99.5 F 10/18/17 08:21 Pulse 74 10/18/17 08:21 Resp 20 10/18/17 08:21 BP 98/61 L 10/18/17 08:21 Pulse Ox 93 L 10/18/17 08:21 - Labs Result Diagrams: 10/18/17 06:00 10/18/17 06:00 Labs: Laboratory Results - last 24 hr 10/18/17 10/18/17 10/18/17 06:00 06:00 07:20 WBC 6.1 RBC 3.62 Hgb 9.1 L Hct 28.1 L MCV 77.6 L MCH 25.1 MCHC 32.4 RDW 13.9 Plt Count 244 MPV 8.9 Gran % 82.3 H Lymph % (Auto) 10.9 L Gibson % (Auto) 6.5 H Eos % (Auto) 0.0 L Baso % (Auto) 0.3 Gran # 5.03 Lymph # (Auto) 0.7 L Gibson # (Auto) 0.4 Eos # (Auto) 0.0 Baso # (Auto) 0.02 Sodium 132 Potassium 3.2 L Chloride 100 Carbon Dioxide 25 Anion Gap 10 BUN 21 Creatinine 0.9 Est GFR ( Amer) > 60 Est GFR (Non-Af Amer) > 60 POC Glucose (mg/dL) 104 Random Glucose 106 Calcium 9.1 Total Bilirubin 0.7 AST 65 H ALT 56 Alkaline Phosphatase 195 H Total Protein 6.0 Albumin 2.6 L Globulin 3.4 Albumin/Globulin Ratio 0.7 L 10/18/17 11:07 WBC RBC Hgb Hct MCV MCH MCHC RDW Plt Count MPV Gran % Lymph % (Auto) Gibson % (Auto) Eos % (Auto) Baso % (Auto) Gran # Lymph # (Auto) Gibson # (Auto) Eos # (Auto) Baso # (Auto) Sodium Potassium Chloride Carbon Dioxide Anion Gap BUN Creatinine Est GFR ( Amer) Est GFR (Non-Af Amer) POC Glucose (mg/dL) 97 Random Glucose Calcium Total Bilirubin AST ALT Alkaline Phosphatase Total Protein Albumin Globulin Albumin/Globulin Ratio Attending/Attestation - Attestation I have personally seen and examined this patient.: Yes I have fully participated in the care of the patient.: Yes I have reviewed all pertinent clinical information: Yes Notes (Text): 10/18/17 13:25 Medical record note made by the resident after discussion with my direction and input after the patient was personally seen and examined by me. I have reviewed the chart and agree that the record accurately reflects by personal performance of the history, physical exam, data review, and medical decision-making, in the course for the patient. I have also personally directed the plan of care. 72 year old male with past medical history significant for DM2, HTN, Hyperlipidemia, PVD ,Infra renal AAA 2.[address] scan , and multiple CVA' s is admitted with change of mental status, decrease responsiveness getting worse over 5-6 weeks.The etiology of this is not clear.There is no focal deficit.Etiology could be Progression of underlying dementia/ new cva/ dehydration or underlying infection..Patient is also clinically dehydrated.X ray finding are concerning for aspiration.We will get CT scan of head, we will monitor Neuro check. We will get speech and swallow evaluation, will start patient on IV hydration. Management plan was discussed in detail with patient son who is at bed side. Education was provided.
--- NOTE | 2017-10-17 18:33 | CT ---
PROCEDURE: CT HEAD WITHOUT CONTRAST. HISTORY: R/O ACUTE INFARCT OR Bleed COMPARISON: 08/26/2017. TECHNIQUE: Axial computed tomography images were obtained through the head/brain without intravenous contrast. Radiation dose: Total exam DLP = 2096.25 mGy-cm. This CT exam was performed using one or more of the following dose reduction techniques: Automated exposure control, adjustment of the mA and/or kV according to patient size, and/or use of iterative reconstruction technique. FINDINGS: HEMORRHAGE: No intracranial hemorrhage. BRAIN: Examination is of suboptimal diagnostic quality due to patient motion. There are severe chronic microangiopathic changes. No mass, mass effect or abnormal extra-axial fluid collection. VENTRICLES: There is moderate age-related global parenchymal volume loss and proportionate enlargement of the ventricles and cortical sulci. CALVARIUM: The skull base and calvarium are normal. PARANASAL SINUSES: Predominantly clear. MASTOID AIR CELLS: Predominantly clear. OTHER FINDINGS: None. IMPRESSION: Suboptimal diagnostic quality and limited examination due to patient motion. No acute intracranial abnormality. Severe chronic microangiopathic changes and moderate age-related global parenchymal volume loss.
--- NOTE | 2017-10-17 20:14 | CARD ---
APPROVED REPORT EKG Measurement Heart [id number] <Conclusion> Normal sinus rhythm Septal infarct, age undetermined Abnormal ECG
[2017-10-17] MEDS: Dextrose 5%/0.9% NS 1,000 ML IV SCH (20:22)
[2017-10-17 21:08] LABS: URINE BILIRUBIN NEGATIVE (NEGATIVE); URINE BLOOD TRACE-LYSED (NEGATIVE); URINE GLUCOSE (UA) NEGATIVE (NEGATIVE); URINE LEUKOCYTE ESTERASE NEGATIVE Leu/uL (NEGATIVE); URINE PROTEIN NEGATIVE mg/dL (<30 mg/dL); URINE UROBILINOGEN 0.2 E.U./dL (<1 E.U./dL)
[2017-10-17 21:11] LABS: URINE APPEARANCE CLEAR (CLEAR); URINE COLOR YELLOW (YELLOW)
[2017-10-17 21:19] LABS: URINE BACTERIA MOD (NEG); URINE EPITHELIAL CELLS 0 - 2 /hpf (0-5); URINE WBC 0 - 2 /hpf (0-6)
[2017-10-18 06:49] LABS: BASO # 0.02 K/mm3 (0.0-2.0); BASO % 0.3 % (0.0-3.0); GRAN # 5.03 (1.4-6.5); GRAN % 82.3 % (50.0-68.0); HEMOGLOBIN 9.1 g/dL (14.0-18.0); LYMPH # 0.7 (1.2-3.4); LYMPH % 10.9 % (22.0-35.0); MEAN CELL VOLUME 77.6 fl (80.0-105.0); MEAN CORPUSCULAR HEMOGLOBIN 25.1 pg (25.0-35.0); MEAN CORPUSCULAR HGB CONC 32.4 g/dl (31.0-37.0); MEAN PLATELET VOLUME 8.9 fl (7.0-11.0); MONO # 0.4 (0.1-0.6); MONO % 6.5 % (1.0-6.0); RBC 3.62 10^6/uL (3.5-6.1); RED CELL DISTRIBUTION WIDTH 13.9 % (11.5-14.5); WHITE BLOOD COUNT 6.1 10^3/ul (4.5-11.0)
[2017-10-18 06:59] LABS: ALB/GLOB RATIO 0.7 (1.1-1.8); ALBUMIN 2.6 g/dL (3.0-4.8); ALT/SGPT 56 U/L (7-56); AST/SGOT 65 U/L (17-59); BLOOD UREA NITROGEN 21 mg/dL (7-21); CALCIUM 9.1 mg/dL (8.4-10.5); GFR AFRICAN-AMERICAN > 60; GFR NON-AFRICAN AMERICAN > 60
--- NOTE | 2017-10-18 09:40 | CP.PCM.PN ---
<Pearl Olsen - Last Filed: 10/18/17 14:38> Subjective - Date & Time of Evaluation Date of Evaluation: 10/18/17 Time of Evaluation: 09:37 - Subjective Subjective: Internal Medicine Progress Note: Patient seen and examined at bedside. Per nursing no acute events overnight. Patients daughter is at the bedside. Patient is more awake today, able to recognize his daughter, he is orientated to self, not place or time. He is NPO, Swallow evaluation is pending. Denies any complaints at this time. Objective - Vital Signs/Intake and Output Vital Signs (last 24 hours): Temp Pulse Resp BP Pulse Ox 99.5 F 74 20 98/61 L 93 L 10/18/17 08:21 10/18/17 08:21 10/18/17 08:21 10/18/17 08:21 10/18/17 08:21 Intake and Output: 10/18/17 10/18/17 06:59 18:59 Intake Total 0 Output Total 350 600 Balance -350 -600 - Medications Medications: Current Medications Aspirin (Ecotrin) 81 mg PO DAILY [facility] Atorvastatin Calcium (Lipitor) 40 mg PO DIN [facility] Last Admin: 10/17/17 20:23 Dose: Not Given Enoxaparin Sodium (Lovenox) 40 mg SC DAILY [facility] PRN Reason: Protocol Finasteride (Proscar) 5 mg PO DAILY [facility] Dextrose/Sodium Chloride (Dextrose 5%/0.9% Ns 1000 Ml) 1,000 mls @ 60 mls/hr IV .[id number] [facility] Last Admin: 10/17/17 20:22 Dose: 60 mls/hr Ceftriaxone Sodium (Rocephin 1 Gram Ivpb) 1 gm in 100 mls @ 100 mls/hr IVPB DAILY [facility] PRN Reason: Protocol Potassium Chloride (Potassium Chloride 20 Meq/100 Ml) 20 meq in 100 mls @ 50 mls/hr IVPB Q2H [facility] Stop: 10/18/17 11:14 Last Admin: 10/18/17 08:52 Dose: 50 mls/hr Metoprolol Succinate (Toprol Xl) 25 mg PO BRK [facility] Pantoprazole Sodium (Protonix Inj) 40 mg IVP DAILY [facility] Tamsulosin HCl (Flomax) 0.4 mg PO DAILY [facility] - Labs Labs: 10/18/17 06:00 10/18/17 06:00 PT 13.1 SECONDS (9.4-12.5) H 10/17/17 13:30 INR 1.14 (0.93-1.08) H 10/17/17 13:30 APTT 34.6 Seconds (25.1-36.5) 10/17/17 13:30 - Additional Findings Additional findings: - Constitutional Appears: No Acute Distress, Chronically Ill - Head Exam Head Exam: ATRAUMATIC, NORMOCEPHALIC - Eye Exam Eye Exam: EOMI, PERRL - ENT Exam ENT Exam: Mucous Membranes Moist - Neck Exam Neck exam: Positive for: Normal Inspection - Respiratory Exam Respiratory Exam: absent: Rales, Rhonchi, Wheezes - Cardiovascular Exam Cardiovascular Exam: RRR, +S1, +S2. absent: Gallop, JVD, Rubs - GI/Abdominal Exam GI & Abdominal Exam: Soft. absent: Distended, Firm, Guarding, Rebound, Tenderness - Extremities Exam Extremities exam: Positive for: normal inspection. Negative for: pedal edema - Neurological Exam Additional comments: alert but oriented only to person moves all extremities spontaneously EOMI PERRL gait deferred unable to participate in full neuro examination - Skin Skin Exam: Dry, Intact, Normal Color, Warm Assessment and Plan - Assessment and Plan (Free Text) Assessment: Patient is a 72 yo male with history of HTN, HLD, CVA, vascular dementia and urinary incontinence presents with change of mental status, decrease responsiveness getting worse over 5-6 weeks. 1. Altered mental status -Stable, no leukocytosis -Etiology unclear at this point however could be progressive vascular dementia vs infection vs new CVA vs dehydration -CT Head: no acute intracranial abnormality. Severe chronic microangiopathic changes and moderate age related global parenchymal volume loss -MRI ordered, f/u results -UA negative, f/u urine culture -Continue IV hydration -Diet: NPO, Speech/swallow eval pending -If patient does not pass swallow eval, will need NGT placement with eventual plan for peg tube -Continue ASA and lipitor -Neuro consult - Dr. Weinberg, help appreciated -Continue Neuro checks -Aspiration precautions/Fall precautions -Physical Therapy/Occupational Therapy -Palliative care on consult for advance directive 2. Possible Aspiration Pneumonia -Had temp of 100.4 overnight -CXR showed slight increase in interstitial infiltrate -Antibiotics: Unasyn Q6H -Procal ordered, f/u blood cultures, urine cultures 3. Urinary incontinence -Continue flomax and proscar -Urology consulted - Dr. Green 3. HTN -Continue home metoprolol 5. Hypokalemia -Potassium 3.2 today, repleted 6. Diabetes Mellitus -Accuchecks Q4H -Low dose insulin sliding scale GI/DVT Prophylaxis -protonix/scd's patient seen and case discussed with attending, Dr. Patterson <Rylee Patterson - Last Filed: 10/18/17 17:16> Objective - Vital Signs/Intake and Output Vital Signs (last 24 hours): Temp Pulse Resp BP Pulse Ox 99.5 F 74 20 98/61 L 93 L 10/18/17 08:21 10/18/17 08:21 10/18/17 08:21 10/18/17 08:21 10/18/17 08:21 Intake and Output: 10/18/17 10/18/17 06:59 18:59 Intake Total 0 Output Total 350 1000 Balance -350 -1000 - Medications Medications: Current Medications Aspirin (Ecotrin) 81 mg PO DAILY [facility] Last Admin: 10/18/17 15:24 Dose: Not Given Atorvastatin Calcium (Lipitor) 40 mg PO DIN [facility] Last Admin: 10/17/17 20:23 Dose: Not Given Enoxaparin Sodium (Lovenox) 40 mg SC DAILY [facility] PRN Reason: Protocol Last Admin: 10/18/17 11:36 Dose: 40 mg Finasteride (Proscar) 5 mg PO DAILY [facility] Last Admin: 10/18/17 15:25 Dose: Not Given Dextrose/Sodium Chloride (Dextrose 5%/0.9% Ns 1000 Ml) 1,000 mls @ 60 mls/hr IV .[id number] [facility] Last Admin: 10/18/17 15:24 Dose: 60 mls/hr Ampicillin Sodium/Sulbactam (Sodium 3 gm/ Sodium Chloride) 100 mls @ 200 mls/ hr IVPB Q6 [facility] PRN Reason: Protocol Insulin Human Regular (Humulin R Low) 0 units SC ACHS [facility] PRN Reason: Protocol Metoprolol Succinate (Toprol Xl) 25 mg PO BRK [facility] Last Admin: 10/18/17 15:26 Dose: Not Given Pantoprazole Sodium (Protonix Inj) 40 mg IVP DAILY [facility] Last Admin: 10/18/17 15:25 Dose: 40 mg Tamsulosin HCl (Flomax) 0.4 mg PO DAILY [facility] Last Admin: 10/18/17 15:24 Dose: Not Given - Labs Labs: 10/18/17 06:00 10/18/17 06:00 PT 13.1 SECONDS (9.4-12.5) H 10/17/17 13:30 INR 1.14 (0.93-1.08) H 10/17/17 13:30 APTT 34.6 Seconds (25.1-36.5) 10/17/17 13:30 Attending/Attestation - Attestation I have personally seen and examined this patient.: Yes I have fully participated in the care of the patient.: Yes I have reviewed all pertinent clinical information, including history, physical exam and plan: Yes Notes (Text): 10/18/17 17:11 Medical record note made by the resident after discussion with my direction and input after the patient was personally seen and examined by me. I have reviewed the chart and agree that the record accurately reflects by personal performance of the history, physical exam, data review, and medical decision-making, in the course for the patient. I have also personally directed the plan of care. 72 year old male with past medical history significant for DM2, HTN, Hyperlipidemia, PVD ,Infra renal AAA 2.[address] scan , and multiple CVA' s is admitted with change of mental status, decrease responsiveness getting worse over 5-6 weeks.The etiology of this is not clear.There is no focal deficit. Patient is little better more awake since yesterday.We will follow up MRI of Brain. He is having low grdae fever likely Aspiration Pneumonia , will start patient on IV unasyn and will follow up cultures. Finasteride and Tamsulosin are on hold as patient family belives that his mental status started getting worse after he was started on this therapy. Management plan was discussed in detail with patient daughter who is at bed side. Education was provided 10/18/17 17:13 10/18/17 17:16
[2017-10-18] MEDS ORDERED: cefTRIAXone 1 gm 1 GM/100 ML BAG IVPB SCH (10:00)
[2017-10-18] MEDS: Enoxaparin 40 mg Syringe SC SCH (11:36)
--- NOTE | 2017-10-18 12:35 | CP.PCM.CON ---
History of Present Illness - History of Present Illness History of Present Illness: Palliative consult requested by Dr Isabell Patterson Reason: Goals of care This is a 72 year old male with history of dementia, HTN, HLD and stroke who presented with weakness, weight loss, anorexia and altered mental status. Family reports the patient to complained of urinary incontinence. He was seen by PMD who prescribed medication(daughter does not remember name). Patients symptoms worsened with rapid decline in functional status and family brought him to urologist, Dr Martinez who recommended that patient go to ED for further evaluation. Chest x ray showed a slight increase in interstitial infiltrate. CT of head was limited but showed no acute abnormality, severe chronic microangiopathic changes. Labs: WBC 6.2, Hgb 9.1, PLT 251,K 3.6, BUN 23, Creat. 0.9, glucose 104, AST 61, ALT 64, Alk Phos 2018, BNP 982, Albumin 2.9 PMHx: vascular dementia, urinary incontinence,DM, HTN, HLD and CVA. PSH: None. Social History: Former smoker, no alcohol or drug use. , lives with family. Family History: Non contributory. Review of Systems: As per HPI, patient is altered not able to obtain. Past Patient History - Infectious Disease Hx of Infectious Diseases: None - Tetanus Immunizations Tetanus Immunization: Up to Date - Past Social History Smoking Status: Never Smoked - CARDIAC Hx Cardiac Disorders: Yes Hx Hypertension: Yes - PULMONARY Hx Respiratory Disorders: No - NEUROLOGICAL HX Cerebrovascular Accident: Yes (x 4 with left sided weakness) - HEENT Hx HEENT Problems: Yes (glasses for reading) - RENAL Hx Chronic Kidney Disease: No - ENDOCRINE/METABOLIC Hx Diabetes Mellitus Type 2: Yes - HEMATOLOGICAL/ONCOLOGICAL Hx Blood Disorders: Yes Hx Anemia: Yes - INTEGUMENTARY Hx Dermatological Problems: No - MUSCULOSKELETAL/RHEUMATOLOGICAL Hx Musculoskeletal Disorders: No Hx Falls: No - GASTROINTESTINAL Hx Gastrointestinal Disorders: Yes HX Swallowing Problems: Yes - GENITOURINARY/GYNECOLOGICAL Hx Genitourinary Disorders: No - PSYCHIATRIC Hx Psychophysiologic Disorder: No Hx Depression: No Hx Emotional Abuse: No Hx Physical Abuse: No Hx Substance Use: No - SURGICAL HISTORY Hx Surgeries: No Meds Allergies/Adverse Reactions: Allergies Allergy/AdvReac Type Severity Reaction Status Date / Time No Known Allergies Allergy Verified 10/17/17 12:51 - Medications Medications: Current Medications Aspirin (Ecotrin) 81 mg PO DAILY [facility] Atorvastatin Calcium (Lipitor) 40 mg PO DIN [facility] Last Admin: 10/17/17 20:23 Dose: Not Given Enoxaparin Sodium (Lovenox) 40 mg SC DAILY [facility] PRN Reason: Protocol Last Admin: 10/18/17 11:36 Dose: 40 mg Finasteride (Proscar) 5 mg PO DAILY [facility] Dextrose/Sodium Chloride (Dextrose 5%/0.9% Ns 1000 Ml) 1,000 mls @ 60 mls/hr IV .[id number] [facility] Last Admin: 10/17/17 20:22 Dose: 60 mls/hr Ampicillin Sodium/Sulbactam (Sodium 3 gm/ Sodium Chloride) 100 mls @ 200 mls/ hr IVPB Q6 [facility] PRN Reason: Protocol Insulin Human Regular (Humulin R Low) 0 units SC ACHS [facility] PRN Reason: Protocol Metoprolol Succinate (Toprol Xl) 25 mg PO BRK [facility] Pantoprazole Sodium (Protonix Inj) 40 mg IVP DAILY [facility] Tamsulosin HCl (Flomax) 0.4 mg PO DAILY [facility] Physical Exam - Constitutional Appears: Cachectic, Chronically Ill - Head Exam Head Exam: NORMOCEPHALIC - Eye Exam Eye Exam: Normal appearance, PERRL - ENT Exam ENT Exam: Mucous Membranes Moist, Normal Oropharynx - Neck Exam Neck exam: Positive for: Normal Inspection - Respiratory Exam Respiratory Exam: Decreased Breath Sounds, NORMAL BREATHING PATTERN - Cardiovascular Exam Cardiovascular Exam: REGULAR RHYTHM, +S1, +S2 - GI/Abdominal Exam GI & Abdominal Exam: Hypoactive Bowel Sounds, Soft - Extremities Exam Extremities exam: Positive for: normal inspection, pedal pulses present - Back Exam Back exam: NORMAL INSPECTION - Neurological Exam Neurological exam: Altered - Skin Skin Exam: Dry, Pallor - Additional Findings Additional findings: Palliative performance scale rating 30 % Results - Vital Signs Recent Vital Signs: Last Vital Signs Temp 99.5 F 10/18/17 08:21 Pulse 74 10/18/17 08:21 Resp 20 10/18/17 08:21 BP 98/61 L 10/18/17 08:21 Pulse Ox 93 L 10/18/17 08:21 - Labs Result Diagrams: 10/18/17 06:00 10/18/17 06:00 Labs: Laboratory Results - last 24 hr 10/18/17 10/18/17 10/18/17 06:00 06:00 07:20 WBC 6.1 RBC 3.62 Hgb 9.1 L Hct 28.1 L MCV 77.6 L MCH 25.1 MCHC 32.4 RDW 13.9 Plt Count 244 MPV 8.9 Gran % 82.3 H Lymph % (Auto) 10.9 L [place] % (Auto) 6.5 H Eos % (Auto) 0.0 L Baso % (Auto) 0.3 Gran # 5.03 Lymph # (Auto) 0.7 L [place] # (Auto) 0.4 Eos # (Auto) 0.0 Baso # (Auto) 0.02 Sodium 132 Potassium 3.2 L Chloride 100 Carbon Dioxide 25 Anion Gap 10 BUN 21 Creatinine 0.9 Est GFR ( Amer) > 60 Est GFR (Non-Af Amer) > 60 POC Glucose (mg/dL) 104 Random Glucose 106 Calcium 9.1 Total Bilirubin 0.7 AST 65 H ALT 56 Alkaline Phosphatase 195 H Total Protein 6.0 Albumin 2.6 L Globulin 3.4 Albumin/Globulin Ratio 0.7 L 10/18/17 11:07 WBC RBC Hgb Hct MCV MCH MCHC RDW Plt Count MPV Gran % Lymph % (Auto) [place] % (Auto) Eos % (Auto) Baso % (Auto) Gran # Lymph # (Auto) [place] # (Auto) Eos # (Auto) Baso # (Auto) Sodium Potassium Chloride Carbon Dioxide Anion Gap BUN Creatinine Est GFR ( Amer) Est GFR (Non-Af Amer) POC Glucose (mg/dL) 97 Random Glucose Calcium Total Bilirubin AST ALT Alkaline Phosphatase Total Protein Albumin Globulin Albumin/Globulin Ratio Assessment & Plan - Assessment and Plan (Free Text) Assessment: 72 year old male with history of vascular dementia, HTN, DM and previous CVA who was admitted with altered mental status, anorexia, cachexia, weakness and loss of functional status. The patient speaks Syriac. Daughter at bedside, spoke with him in [place] language states her father is confused. Daughter is very concerned about daughters rapid decline in health. Daughter states until a few weeks ago her father was mostly independent of ADL's. The daughter is unsure whether her father has a advanced directive, she believes this to be unlikely but will ask her mother. A this point, family wants to continue all medical interventions. Explained that medical staff will continue to try and determine cause of father's recent health issue. Explained that even with medical interventions her father's health may continue to decline. Reassured that ongoing discussions will take place regarding goals of care. Daughter is appreciative of palliative input. Psychosocial support provided. Time spent with family in goals of care discussion, 30 minutes Plan: Altered mental status: CT of head showed no acute abnormal. Repeat CT of head. Unsure of " new meds" patient was taking prior to admission they may have affected mental status- flomax?.Neurology consult. Aspiration precautions:Keep NPO. Repeat Speech and swallow exam. Anorexia/cachexia:consider CT of abdomen and pelvis. Urinary Incontinence: Urology consult. Goals of care advance care panning
[2017-10-18] MEDS: Dextrose 5%/0.9% NS 1,000 ML IV SCH (15:24)
[2017-10-18] MEDS: Metoprolol Succinate 25 mg XL Tab PO SCH (15:26)
[2017-10-18] MEDS: Insulin Reg-LOW-Coverage SC SCH ×2 (18:33→22:10)
--- NOTE | 2017-10-18 20:52 | CP.PCM.CON ---
History of Present Illness - History of Present Illness History of Present Illness: 72 yr old male with history of hypertension, old stroke, hyerlipidemia, and vascular dementia, who is here for altered mental status. He was discharged from [place] a month ago, and was admitted for urinary tract infection. PMH: DM2, HTN, HLD, Hx of CVA, urinary incontinence, vascular dementia PSH: Denies Allergies: NKDA Social Hx: Former tobacco use, denies alcohol and illicit drug use Family Hx: Non-contributory On exam: aaox1. He knows his name, no facial asymmetry. PERRL, Cn 2-12 normal. mms: 04/18 motor: 5/5 sensory: not accurate. Cerebellar: f/n no dysmetria Gait: wide based. +2 dtr ul and ll bl. Toes downgoing. No clonus. Past Patient History - Infectious Disease Hx of Infectious Diseases: None - Tetanus Immunizations Tetanus Immunization: Up to Date - Past Social History Smoking Status: Never Smoked - CARDIAC Hx Cardiac Disorders: Yes Hx Hypertension: Yes - PULMONARY Hx Respiratory Disorders: No - NEUROLOGICAL HX Cerebrovascular Accident: Yes (x 4 with left sided weakness) - HEENT Hx HEENT Problems: Yes (glasses for reading) - RENAL Hx Chronic Kidney Disease: No - ENDOCRINE/METABOLIC Hx Diabetes Mellitus Type 2: Yes - HEMATOLOGICAL/ONCOLOGICAL Hx Blood Disorders: Yes Hx Anemia: Yes - INTEGUMENTARY Hx Dermatological Problems: No - MUSCULOSKELETAL/RHEUMATOLOGICAL Hx Musculoskeletal Disorders: No Hx Falls: No - GASTROINTESTINAL Hx Gastrointestinal Disorders: Yes HX Swallowing Problems: Yes - GENITOURINARY/GYNECOLOGICAL Hx Genitourinary Disorders: No - PSYCHIATRIC Hx Psychophysiologic Disorder: No Hx Depression: No Hx Emotional Abuse: No Hx Physical Abuse: No Hx Substance Use: No - SURGICAL HISTORY Hx Surgeries: No Meds Allergies/Adverse Reactions: Allergies Allergy/AdvReac Type Severity Reaction Status Date / Time No Known Allergies Allergy Verified 10/17/17 12:51 - Medications Medications: Current Medications Aspirin (Ecotrin) 81 mg PO DAILY [facility] Last Admin: 10/18/17 15:24 Dose: Not Given Atorvastatin Calcium (Lipitor) 40 mg PO DIN [facility] Last Admin: 10/17/17 20:23 Dose: Not Given Enoxaparin Sodium (Lovenox) 40 mg SC DAILY [facility] PRN Reason: Protocol Last Admin: 10/18/17 11:36 Dose: 40 mg Finasteride (Proscar) 5 mg PO DAILY [facility] Last Admin: 10/18/17 15:25 Dose: Not Given Dextrose/Sodium Chloride (Dextrose 5%/0.9% Ns 1000 Ml) 1,000 mls @ 60 mls/hr IV .[id number] [facility] Last Admin: 10/18/17 15:24 Dose: 60 mls/hr Ampicillin Sodium/Sulbactam (Sodium 3 gm/ Sodium Chloride) 100 mls @ 200 mls/ hr IVPB Q6 [facility] PRN Reason: Protocol Last Admin: 10/18/17 19:37 Dose: 200 mls/hr Insulin Human Regular (Humulin R Low) 0 units SC ACHS [facility] PRN Reason: Protocol Last Admin: 10/18/17 18:33 Dose: Not Given Metoprolol Succinate (Toprol Xl) 25 mg PO BRK [facility] Last Admin: 10/18/17 15:26 Dose: Not Given Pantoprazole Sodium (Protonix Inj) 40 mg IVP DAILY [facility] Last Admin: 10/18/17 15:25 Dose: 40 mg Tamsulosin HCl (Flomax) 0.4 mg PO DAILY [facility] Last Admin: 10/18/17 15:24 Dose: Not Given Results - Vital Signs Recent Vital Signs: Last Vital Signs Temp 99.5 F 10/18/17 08:21 Pulse 74 10/18/17 08:21 Resp 20 10/18/17 08:21 BP 98/61 L 10/18/17 08:21 Pulse Ox 93 L 10/18/17 08:21 - Labs Result Diagrams: 10/18/17 06:00 10/18/17 06:00 Labs: Laboratory Results - last 24 hr 10/18/17 10/18/17 10/18/17 06:00 06:00 07:00 WBC 6.1 RBC 3.62 Hgb 9.1 L Hct 28.1 L MCV 77.6 L MCH 25.1 MCHC 32.4 RDW 13.9 Plt Count 244 MPV 8.9 Gran % 82.3 H Lymph % (Auto) 10.9 L [place] % (Auto) 6.5 H Eos % (Auto) 0.0 L Baso % (Auto) 0.3 Gran # 5.03 Lymph # (Auto) 0.7 L [place] # (Auto) 0.4 Eos # (Auto) 0.0 Baso # (Auto) 0.02 Sodium 132 Potassium 3.2 L Chloride 100 Carbon Dioxide 25 Anion Gap 10 BUN 21 Creatinine 0.9 Est GFR ( Amer) > 60 Est GFR (Non-Af Amer) > 60 POC Glucose (mg/dL) Random Glucose 106 Calcium 9.1 Total Bilirubin 0.7 AST 65 H ALT 56 Alkaline Phosphatase 195 H Total Protein 6.0 Albumin 2.6 L Globulin 3.4 Albumin/Globulin Ratio 0.7 L Procalcitonin 0.30 10/18/17 10/18/17 10/18/17 07:20 11:07 16:54 WBC RBC Hgb Hct MCV MCH MCHC RDW Plt Count MPV Gran % Lymph % (Auto) [place] % (Auto) Eos % (Auto) Baso % (Auto) Gran # Lymph # (Auto) [place] # (Auto) Eos # (Auto) Baso # (Auto) Sodium Potassium Chloride Carbon Dioxide Anion Gap BUN Creatinine Est GFR ( Amer) Est GFR (Non-Af Amer) POC Glucose (mg/dL) 104 97 96 Random Glucose Calcium Total Bilirubin AST ALT Alkaline Phosphatase Total Protein Albumin Globulin Albumin/Globulin Ratio Procalcitonin - Imaging and Cardiology CT scan - head Status: Image reviewed by me, Report reviewed by me (cthead shows atrophy. ) Assessment & Plan - Assessment and Plan (Free Text) Assessment: 72 yr old male with severe dementia who now is progressing rapidly. His MMS is much worse than last time. I do not feel that he is having seizures or a stroke. Plan: 1. Medical management 2. No other neurological intervention at this time. Dr. Weinberg
[2017-10-19] MEDS: Dextrose 5%/0.9% NS 1,000 ML IV SCH (02:30)
[2017-10-19 06:52] LABS: BASO # 0.01 K/mm3 (0.0-2.0); BASO % 0.2 % (0.0-3.0); GRAN # 5.62 (1.4-6.5); GRAN % 86.6 % (50.0-68.0); HEMOGLOBIN 9.7 g/dL (14.0-18.0); LYMPH # 0.5 (1.2-3.4); LYMPH % 8.3 % (22.0-35.0); MEAN CELL VOLUME 78.6 fl (80.0-105.0); MEAN CORPUSCULAR HEMOGLOBIN 25.3 pg (25.0-35.0); MEAN CORPUSCULAR HGB CONC 32.2 g/dl (31.0-37.0); MEAN PLATELET VOLUME 8.8 fl (7.0-11.0); MONO # 0.3 (0.1-0.6); MONO % 4.9 % (1.0-6.0); RBC 3.83 10^6/uL (3.5-6.1); RED CELL DISTRIBUTION WIDTH 14.1 % (11.5-14.5); WHITE BLOOD COUNT 6.5 10^3/ul (4.5-11.0)
[2017-10-19 07:09] LABS: ALB/GLOB RATIO 0.7 (1.1-1.8); ALBUMIN 2.7 g/dL (3.0-4.8); ALT/SGPT 55 U/L (7-56); AST/SGOT 47 U/L (17-59); BLOOD UREA NITROGEN 19 mg/dL (7-21); CALCIUM 9.2 mg/dL (8.4-10.5); GFR AFRICAN-AMERICAN > 60; GFR NON-AFRICAN AMERICAN > 60
[2017-10-19] MEDS: Insulin Reg-LOW-Coverage SC SCH ×4 (08:19→22:11)
[2017-10-19] MEDS: Metoprolol Succinate 25 mg XL Tab PO SCH (09:00)
--- NOTE | 2017-10-19 09:29 | MRI ---
PROCEDURE: MRI BRAIN WITHOUT CONTRAST HISTORY: AMS, history of vascular dementia, multiple CVAs COMPARISON: None. TECHNIQUE: Multiplanar, multisequence MR images of the brain were obtained without intravenous contrast enhancement. FINDINGS: HEMORRHAGE: There is an old hemorrhage with hemosiderin deposition in the right cerebellar hemisphere. There is surrounding encephalomalacia. DWI: No evidence of an acute or early subacute infarction. BRAIN PARENCHYMA: No mass effect or edema. Severe chronic microvascular changes are seen in the periventricular white matter. The findings are more extensive on the left. There is moderate atrophy. There is focal atrophy in the left parietal lobe. VENTRICLES: Unremarkable. No hydrocephalus. CRANIUM: Unremarkable. ORBITS: Grossly unremarkable. PARANASAL SINUSES/MASTOIDS: Clear VASCULAR SYSTEM: Skull base flow voids intact. OTHER FINDINGS: None. IMPRESSION: Severe chronic microvascular changes are seen in the periventricular white matter. The findings are more extensive on the left. There is moderate atrophy. There is focal atrophy in the left parietal lobe.
--- NOTE | 2017-10-19 09:34 | PCM.URO ---
Urology Progress Note - Objective Lab Studies: Reviewed (gu : full note to be dictated plans : in pt work up [place] to sd) Lab Results Last 24 Hours: Laboratory Results - last 24 hr 10/18/17 10/18/17 10/18/17 07:00 11:07 16:54 WBC RBC Hgb Hct MCV MCH MCHC RDW Plt Count MPV Gran % Lymph % (Auto) [place] % (Auto) Eos % (Auto) Baso % (Auto) Gran # Lymph # (Auto) [place] # (Auto) Eos # (Auto) Baso # (Auto) Sodium Potassium Chloride Carbon Dioxide Anion Gap BUN Creatinine Est GFR ( Amer) Est GFR (Non-Af Amer) POC Glucose (mg/dL) 97 96 Random Glucose Calcium Total Bilirubin AST ALT Alkaline Phosphatase Total Protein Albumin Globulin Albumin/Globulin Ratio Procalcitonin 0.30 10/18/17 10/19/17 10/19/17 22:00 06:30 06:30 WBC 6.5 RBC 3.83 Hgb 9.7 L Hct 30.1 L MCV 78.6 L MCH 25.3 MCHC 32.2 RDW 14.1 Plt Count 228 MPV 8.8 Gran % 86.6 H Lymph % (Auto) 8.3 L [place] % (Auto) 4.9 Eos % (Auto) 0.0 L Baso % (Auto) 0.2 Gran # 5.62 Lymph # (Auto) 0.5 L [place] # (Auto) 0.3 Eos # (Auto) 0.0 Baso # (Auto) 0.01 Sodium 136 Potassium 3.5 L Chloride 106 Carbon Dioxide 23 Anion Gap 11 BUN 19 Creatinine 1.0 Est GFR ( Amer) > 60 Est GFR (Non-Af Amer) > 60 POC Glucose (mg/dL) 101 Random Glucose 111 H Calcium 9.2 Total Bilirubin 1.0 AST 47 ALT 55 Alkaline Phosphatase 197 H Total Protein 6.2 Albumin 2.7 L Globulin 3.6 Albumin/Globulin Ratio 0.7 L Procalcitonin 10/19/17 07:32 WBC RBC Hgb Hct MCV MCH MCHC RDW Plt Count MPV Gran % Lymph % (Auto) [place] % (Auto) Eos % (Auto) Baso % (Auto) Gran # Lymph # (Auto) [place] # (Auto) Eos # (Auto) Baso # (Auto) Sodium Potassium Chloride Carbon Dioxide Anion Gap BUN Creatinine Est GFR ( Amer) Est GFR (Non-Af Amer) POC Glucose (mg/dL) 112 H Random Glucose Calcium Total Bilirubin AST ALT Alkaline Phosphatase Total Protein Albumin Globulin Albumin/Globulin Ratio Procalcitonin Intake & Output: Intake & Output 10/18/17 10/19/17 10/19/17 18:59 06:59 18:59 Intake Total 0 0 Output Total 1000 1225 325 Balance -1000 -1225 -325 Intake: Oral 0 0 Output: Urine 1000 1225 325 Urethral ([place]) 1000 1225 325 Other: # Bowel Movements 0 0 0 Vital Signs: Vital Signs - 24 hr 10/18/17 10/18/17 10/19/17 18:00 22:00 02:00 Temperature 97.8 F Pulse Rate 80 81 88 Respiratory 19 Rate Blood Pressure 122/81 O2 Sat by Pulse 98 Oximetry 10/19/17 10/19/17 06:00 07:55 Temperature 100 F H Pulse Rate 82 98 H Respiratory 20 Rate Blood Pressure 131/85 O2 Sat by Pulse 95 Oximetry
[2017-10-19] MEDS ORDERED: Potassium Chloride 40 mEq/30 ml LIQ UD PO ONE (10:04)
--- NOTE | 2017-10-19 10:34 | CP.PCM.PN ---
<Hever Duran - Last Filed: 10/19/17 11:36> Subjective - Date & Time of Evaluation Date of Evaluation: 10/19/17 Time of Evaluation: 10:24 - Subjective Subjective: Medicine Progress Note Pt seen and examined at bedside. No acute overnight events. Patient daughter at bedside to translate for patient. Patient is oriented to self, but not place or time. Pt offers no complaints at this time, but may be unreliable due to AMS. Objective - Vital Signs/Intake and Output Vital Signs (last 24 hours): Temp Pulse Resp BP Pulse Ox 100 F H 98 H 20 131/85 95 10/19/17 07:55 10/19/17 07:55 10/19/17 07:55 10/19/17 07:55 10/19/17 07:55 Intake and Output: 10/19/17 10/19/17 06:59 18:59 Intake Total 0 Output Total 1225 325 Balance -1225 -325 - Medications Medications: Current Medications Acetaminophen (Tylenol 650 Mg Supp) 650 mg RC Q6H PRN PRN Reason: Fever >100.4 F Aspirin (Ecotrin) 81 mg PO DAILY [facility] Last Admin: 10/18/17 15:24 Dose: Not Given Atorvastatin Calcium (Lipitor) 40 mg PO DIN [facility] Last Admin: 10/18/17 21:05 Dose: Not Given Enoxaparin Sodium (Lovenox) 40 mg SC DAILY [facility] PRN Reason: Protocol Last Admin: 10/18/17 11:36 Dose: 40 mg Finasteride (Proscar) 5 mg PO DAILY [facility] Last Admin: 10/18/17 15:25 Dose: Not Given Dextrose/Sodium Chloride (Dextrose 5%/0.9% Ns 1000 Ml) 1,000 mls @ 60 mls/hr IV .[id number] [facility] Last Admin: 10/19/17 02:30 Dose: 60 mls/hr Ampicillin Sodium/Sulbactam (Sodium 3 gm/ Sodium Chloride) 100 mls @ 200 mls/ hr IVPB Q6 [facility] PRN Reason: Protocol Last Admin: 10/19/17 05:46 Dose: 200 mls/hr Potassium Chloride (Potassium Chloride 20 Meq/100 Ml) 20 meq in 100 mls @ 50 mls/hr IVPB Q2H [facility] Stop: 10/19/17 14:14 Insulin Human Regular (Humulin R Low) 0 units SC ACHS [facility] PRN Reason: Protocol Last Admin: 10/19/17 08:19 Dose: Not Given Metoprolol Succinate (Toprol Xl) 25 mg PO BRK [facility] Last Admin: 10/18/17 15:26 Dose: Not Given Pantoprazole Sodium (Protonix Inj) 40 mg IVP DAILY [facility] Last Admin: 10/18/17 15:25 Dose: 40 mg Tamsulosin HCl (Flomax) 0.4 mg PO DAILY [facility] Last Admin: 10/18/17 15:24 Dose: Not Given - Labs Labs: 10/19/17 06:30 10/19/17 06:30 PT 13.1 SECONDS (9.4-12.5) H 10/17/17 13:30 INR 1.14 (0.93-1.08) H 10/17/17 13:30 APTT 34.6 Seconds (25.1-36.5) 10/17/17 13:30 - Constitutional Appears: No Acute Distress, Chronically Ill - Head Exam Head Exam: NORMAL INSPECTION - Eye Exam Eye Exam: Normal appearance - ENT Exam ENT Exam: Normal Exam - Neck Exam Neck Exam: Normal Inspection - Respiratory Exam Respiratory Exam: Clear to Ausculation Bilateral. absent: Chest Wall Tenderness , Rales, Rhonchi, Wheezes, Respiratory Distress - Cardiovascular Exam Cardiovascular Exam: RRR, +S1, +S2. absent: Gallop, Rubs, Murmur - GI/Abdominal Exam GI & Abdominal Exam: Soft. absent: Distended, Guarding, Tenderness, Rebound - Extremities Exam Extremities Exam: Normal Inspection - Back Exam Back Exam: NORMAL INSPECTION - Neurological Exam Additional comments: alert but oriented only to person moves all extremities spontaneously gait deferred unable to participate in full neuro examination - Skin Skin Exam: Dry, Intact, Normal Color, Warm Assessment and Plan - Assessment and Plan (Free Text) Assessment: Patient is a 72 yo male with history of HTN, HLD, CVA, vascular dementia and urinary incontinence presents with change of mental status, decrease responsiveness getting worse over 5-6 weeks. Plan: 1. Altered mental status - Stable, no leukocytosis - Etiology unclear at this point however could be progressive vascular dementia vs infection vs dehydration - CT Head: no acute intracranial abnormality. Severe chronic microangiopathic changes and moderate age related global parenchymal volume loss - MRI brain showed severe chronic microvascular changes are seen in the periventricular white matter, more extensive on the left. Moderate atrophy. - UA and urine culture negative - Continue IV hydration - Diet: NPO, Speech/swallow eval recommends dysphagia treatment program (PO trials 3-5/wk) - Continue ASA and lipitor - Lipid panel ordered - Neuro consulted - Dr. Weinberg, no neurologic intervention needed at this time - Continue Neuro checks - Aspiration precautions/Fall precautions - Physical Therapy/Occupational Therapy - Palliative care on consult for advance directive 2. Possible Aspiration Pneumonia - Fever overnight - Tylenol per rectum prn - CXR showed slight increase in interstitial infiltrate - Antibiotics: Unasyn Q6H - Procal 0.3 - Blood cultures negative after 24 hrs 3. Urinary incontinence - Continue flomax and proscar - Urology consulted - Dr. Green - Abdomen/pelvis CT ordered 4. HTN - Lopressor IV prn 5. Hypokalemia - K 3.5 - Repleted IV - Cont to monitor and replete as needed 6. Diabetes Mellitus - Accuchecks Q4H - Low dose insulin sliding scale 7. Anemia - Likely 2/2 chronic disease - Iron studies ordered GI/DVT Prophylaxis -protonix/scd's patient seen and case discussed with attending, Dr. De Leon. Bryan Duran, PGY1 <Raza De Leon - Last Filed: 10/20/17 17:32> Objective - Vital Signs/Intake and Output Vital Signs (last 24 hours): Temp Pulse Resp BP Pulse Ox 100.6 F H 91 H 18 125/81 94 L 10/20/17 08:21 10/20/17 08:21 10/20/17 08:21 10/20/17 08:21 10/20/17 08:21 Intake and Output: 10/20/17 10/20/17 06:59 18:59 Output Total 450 Balance -450 - Labs Labs: 10/20/17 05:30 10/20/17 05:30 PT 13.1 SECONDS (9.4-12.5) H 10/17/17 13:30 INR 1.14 (0.93-1.08) H 10/17/17 13:30 APTT 34.6 Seconds (25.1-36.5) 10/17/17 13:30 Attending/Attestation - Attestation I have personally seen and examined this patient.: Yes I have fully participated in the care of the patient.: Yes I have reviewed all pertinent clinical information, including history, physical exam and plan: Yes Notes (Text): 10/20/17 17:15 attending note; Patient was transferred to my service today as per family's request. Patient's chart reviewed. Patient is a 72-year-old male with a past medical history of multiple CVA, questionable dementia, urinary incontinence is admitted after sent in by urologist because of worsening urinary problems. The patient was started on Flomax and Proscar during last admission. Patient's family thought his urinary symptoms started getting worse and he is getting weak and lethargic after starting Flomax and Proscar. the patient was evaluated by urologist Dr. Green at his office and medications were stopped. The patient was referred to the ER for admission. currently patient is lethargic. Patient has dysphagia. Not able to communicate due to lethargy/language barrier. Patient's son and daughter by the bedside. Patient failed bedside swallow evaluation multiple times. Patient also failed barium swallow study. Patient was evaluated by neurologist; vascular dementia. CT head showed no acute infarct. MRI showed old multiple infarcts and atrophy. CT abdomen and pelvis did not show any hydronephrosis. Patient was evaluated by Dr. Green today. Currently has Virk catheter. Low-grade temperature; mostly secondary to aspiration pneumonia. As per family patient's mental status has been deteriorating for the past few months. Patient is also losing weight slowly. Patient has poor appetite. Family has been feeding him at home. possible long- term microaspiration suspected. Patient has urinary incontinence at home/wears diaper. Possible deterioration of mental status due to vascular dementia/sepsis. Currently on IV unasyn. Blood culture is negative. Urine culture is negative. chest x-ray showed interstitial infiltrate. Patient is also anemic; no previous EGD or colonoscopy. Might benefit from GI evaluation. GI evaluation requested. case discussed with family in detail. Possibility of PEG tube discussed in detail. Family refused PEG tube placement. Family refused rehab placement. time spent explaining the diagnosis and follow-up plan to the family over 2 hours. upon discharge the patient will follow-up with Dr. Mckayla Tuttle.
--- NOTE | 2017-10-19 10:42 | CT ---
PROCEDURE: CT Abdomen and Pelvis without intravenous contrast HISTORY: hematuria, wt loss COMPARISON: CT 08/26/2017 TECHNIQUE: Without contrast. Contrast Dose: Radiation dose: Total exam DLP = Total exam DLP = 260 mGy-cm. This CT exam was performed using one or more of the following dose reduction techniques: Automated exposure control, adjustment of the mA and/or kV according to patient size, and/or use of iterative reconstruction technique. FINDINGS: LOWER THORAX: There is an increasing interstitial infiltrate in both lower lobes. There is focal consolidation or atelectasis at both lung bases. LIVER: Unremarkable. No gross lesion or ductal dilatation. GALLBLADDER AND BILE DUCTS: Unremarkable. PANCREAS: Unremarkable. No gross lesion or ductal dilatation. SPLEEN: Unremarkable. ADRENALS: Unremarkable. No mass. KIDNEYS AND URETERS: Unremarkable. No hydronephrosis. No solid mass. 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 BOWEL: Unremarkable. No obstruction. No gross mural thickening. APPENDIX: Unremarkable. Normal appendix. PERITONEUM: Unremarkable. No free fluid. No free air. LYMPH NODES: Unremarkable. No enlarged lymph nodes. BLADDER: Unremarkable. REPRODUCTIVE: Unremarkable. BONES: No acute fracture. OTHER FINDINGS: None. IMPRESSION: There is an increasing interstitial infiltrate in both lower lobes No acute intra-abdominal findings
[2017-10-19] MEDS ORDERED: Barium Sulfate for Susp 96% w/w 176g Bottle PR ONE (11:04)
[2017-10-19] MEDS ORDERED: Metoprolol 1 mg/ml Inj IVP PRN (11:38)
[2017-10-19 11:59] LABS: IRON 45 ug/dL (45-180)
[2017-10-19 12:06] LABS: TOTAL IRON BINDING CAPACITY 196 ug/dL (261-462)
[2017-10-19 12:08] LABS: % IRON SATURATION 23 % (20-55)
[2017-10-19] MEDS: Enoxaparin 40 mg Syringe SC SCH ×2 (12:54→13:02)
[2017-10-20] MEDS: Dextrose 5%/0.9% NS 1,000 ML IV SCH ×2 (05:16→05:52)
[2017-10-20 06:25] LABS: BASO # 0.01 K/mm3 (0.0-2.0); BASO % 0.2 % (0.0-3.0); GRAN # 5.35 (1.4-6.5); GRAN % 86.2 % (50.0-68.0); HEMOGLOBIN 9.7 g/dL (14.0-18.0); LYMPH # 0.6 (1.2-3.4); LYMPH % 9.4 % (22.0-35.0); MEAN CELL VOLUME 79.2 fl (80.0-105.0); MEAN CORPUSCULAR HEMOGLOBIN 25.3 pg (25.0-35.0); MEAN CORPUSCULAR HGB CONC 31.9 g/dl (31.0-37.0); MEAN PLATELET VOLUME 8.9 fl (7.0-11.0); MONO # 0.3 (0.1-0.6); MONO % 4.2 % (1.0-6.0); RBC 3.84 10^6/uL (3.5-6.1); RED CELL DISTRIBUTION WIDTH 14.4 % (11.5-14.5); WHITE BLOOD COUNT 6.2 10^3/ul (4.5-11.0)
[2017-10-20 07:37] LABS: ALB/GLOB RATIO 0.7 (1.1-1.8); ALBUMIN 2.5 g/dL (3.0-4.8); ALT/SGPT 40 U/L (7-56); AST/SGOT 43 U/L (17-59); BLOOD UREA NITROGEN 20 mg/dL (7-21); CALCIUM 9.4 mg/dL (8.4-10.5); GFR AFRICAN-AMERICAN > 60; GFR NON-AFRICAN AMERICAN > 60
[2017-10-20] MEDS: Insulin Reg-LOW-Coverage SC SCH (08:19)
[2017-10-20 08:22] VITALS: BP 125/81; PULSE 91; RESP 18; TEMP 100.6; O2SAT 94
--- NOTE | 2017-10-20 11:12 | CP.PCM.CON ---
<Olena Garcia - Last Filed: 10/20/17 11:44> History of Present Illness - History of Present Illness History of Present Illness: Gastroenterology Fellow/PGY5 Consult Note 72yo man with PMH of multiple CVAs, vascular dementia, T2DM, HTN, HLD, and recent discharge 08/30/17 for urinary incontinence 2/2 BPH with overflow presenting for confusion. Patient's daughter and at bedside provide history. GI consultation for dysphagia. Daughter notes patient to have dry mouth and weight loss since being on Flomax and Proscar for the last two weeks. She believes this is affecting his swallowing. Daughter witnesses cough to liquids but appears to tolerate solids intake. Notes patient to be in usual state of health prior to the last two weeks with good oral intake and no prior unintentional weight loss. No prior EGD or colonoscopy. Family History- denies stomach cancer, colon cancer Social History- prior tobacco abuse, denies alcohol or illicit drug use Surgical History- none Review of Systems - Review of Systems Review of Systems: 12-point review of systems negative except for as above Past Patient History - Infectious Disease Hx of Infectious Diseases: None - Tetanus Immunizations Tetanus Immunization: Up to Date - Past Social History Smoking Status: Never Smoked - CARDIAC Hx Cardiac Disorders: Yes Hx Hypertension: Yes - PULMONARY Hx Respiratory Disorders: No - NEUROLOGICAL HX Cerebrovascular Accident: Yes (x 4 with left sided weakness) - HEENT Hx HEENT Problems: Yes (glasses for reading) - RENAL Hx Chronic Kidney Disease: No - ENDOCRINE/METABOLIC Hx Diabetes Mellitus Type 2: Yes - HEMATOLOGICAL/ONCOLOGICAL Hx Blood Disorders: Yes Hx Anemia: Yes - INTEGUMENTARY Hx Dermatological Problems: No - MUSCULOSKELETAL/RHEUMATOLOGICAL Hx Musculoskeletal Disorders: No Hx Falls: No - GASTROINTESTINAL Hx Gastrointestinal Disorders: Yes HX Swallowing Problems: Yes - GENITOURINARY/GYNECOLOGICAL Hx Genitourinary Disorders: No - PSYCHIATRIC Hx Psychophysiologic Disorder: No Hx Depression: No Hx Emotional Abuse: No Hx Physical Abuse: No Hx Substance Use: No - SURGICAL HISTORY Hx Surgeries: No Meds Allergies/Adverse Reactions: Allergies Allergy/AdvReac Type Severity Reaction Status Date / Time No Known Allergies Allergy Verified 10/17/17 12:51 - Medications Medications: Current Medications Acetaminophen (Tylenol 650 Mg Supp) 650 mg RC Q6H PRN PRN Reason: Fever >100.4 F Last Admin: 05/03/18 10:44 Dose: 650 mg Aspirin (Ecotrin) 81 mg PO DAILY [facility] Last Admin: 10/19/17 11:13 Dose: Not Given Atorvastatin Calcium (Lipitor) 40 mg PO DIN [facility] Last Admin: 10/19/17 17:04 Dose: Not Given Finasteride (Proscar) 5 mg PO DAILY [facility] Last Admin: 10/19/17 11:13 Dose: Not Given Dextrose/Sodium Chloride (Dextrose 5%/0.9% Ns 1000 Ml) 1,000 mls @ 60 mls/hr IV .[id number] [facility] Last Admin: 10/20/17 05:52 Dose: 60 mls/hr Ampicillin Sodium/Sulbactam (Sodium 3 gm/ Sodium Chloride) 100 mls @ 200 mls/ hr IVPB Q6 [facility] PRN Reason: Protocol Last Admin: 10/20/17 05:57 Dose: 200 mls/hr Insulin Human Regular (Humulin R Low) 0 units SC ACHS [facility] PRN Reason: Protocol Last Admin: 10/20/17 08:19 Dose: Not Given Metoprolol Tartrate (Lopressor) 5 mg IVP Q6H PRN PRN Reason: Systolic Blood Pressure Pantoprazole Sodium (Protonix Inj) 40 mg IVP DAILY [facility] Last Admin: 10/20/17 10:42 Dose: 40 mg Tamsulosin HCl (Flomax) 0.4 mg PO DAILY [facility] Last Admin: 10/19/17 11:13 Dose: Not Given Physical Exam - Constitutional Appears: Non-toxic, No Acute Distress - Head Exam Head Exam: ATRAUMATIC, NORMOCEPHALIC - Eye Exam Eye Exam: EOMI, PERRL Pupil Exam: PERRL. absent: Miosis, Mydriatic - ENT Exam ENT Exam: Mucous Membranes Moist, Normal Oropharynx - Neck Exam Neck exam: Positive for: Full Rom, Normal Inspection - Respiratory Exam Respiratory Exam: Clear to Auscultation Bilateral. absent: Rales, Rhonchi, Wheezes - Cardiovascular Exam Cardiovascular Exam: RRR, +S1, +S2. absent: Gallop, Rubs - GI/Abdominal Exam GI & Abdominal Exam: Normal Bowel Sounds, Soft. absent: Distended, Firm, Guarding, Organomegaly, Rebound, Rigid, Tenderness - Extremities Exam Extremities exam: Positive for: normal inspection. Negative for: pedal edema - Neurological Exam Neurological exam: Alert, Oriented x3 - Psychiatric Exam Psychiatric exam: Normal Affect, Normal Mood - Skin Skin Exam: Dry, Intact, Normal Color, Warm Results - Vital Signs Recent Vital Signs: Last Vital Signs Temp 100.6 F H 10/20/17 08:21 Pulse 91 H 10/20/17 08:21 Resp 18 10/20/17 08:21 BP 125/81 10/20/17 08:21 Pulse Ox 94 L 10/20/17 08:21 - Labs Result Diagrams: 10/20/17 05:30 10/20/17 05:30 Labs: Laboratory Results - last 24 hr 10/19/17 10/19/17 10/19/17 11:00 11:00 15:58 WBC RBC Hgb Hct MCV MCH MCHC RDW Plt Count MPV Gran % Lymph % (Auto) Kendall % (Auto) Eos % (Auto) Baso % (Auto) Gran # Lymph # (Auto) Kendall # (Auto) Eos # (Auto) Baso # (Auto) Sodium Potassium Chloride Carbon Dioxide Anion Gap BUN Creatinine Est GFR ( Amer) Est GFR (Non-Af Amer) POC Glucose (mg/dL) 115 H Random Glucose Calcium Iron 45 TIBC 196 L % Saturation 23 Ferritin 140.0 Total Bilirubin AST ALT Alkaline Phosphatase Total Protein Albumin Globulin Albumin/Globulin Ratio Triglycerides 121 Cholesterol 136 LDL Cholesterol Direct 87 HDL Cholesterol 20 L 10/19/17 10/20/17 10/20/17 21:44 05:30 05:30 WBC 6.2 RBC 3.84 Hgb 9.7 L Hct 30.4 L MCV 79.2 L MCH 25.3 MCHC 31.9 RDW 14.4 Plt Count 226 MPV 8.9 Gran % 86.2 H Lymph % (Auto) 9.4 L Kendall % (Auto) 4.2 Eos % (Auto) 0.0 L Baso % (Auto) 0.2 Gran # 5.35 Lymph # (Auto) 0.6 L Kendall # (Auto) 0.3 Eos # (Auto) 0.0 Baso # (Auto) 0.01 Sodium 141 Potassium 3.6 Chloride 109 H Carbon Dioxide 24 Anion Gap 12 BUN 20 Creatinine 1.0 Est GFR ( Amer) > 60 Est GFR (Non-Af Amer) > 60 POC Glucose (mg/dL) 106 Random Glucose 113 H Calcium 9.4 Iron TIBC % Saturation Ferritin Total Bilirubin 0.9 AST 43 ALT 40 Alkaline Phosphatase 191 H Total Protein 6.0 Albumin 2.5 L Globulin 3.5 Albumin/Globulin Ratio 0.7 L Triglycerides Cholesterol LDL Cholesterol Direct HDL Cholesterol 10/20/17 07:33 WBC RBC Hgb Hct MCV MCH MCHC RDW Plt Count MPV Gran % Lymph % (Auto) Kendall % (Auto) Eos % (Auto) Baso % (Auto) Gran # Lymph # (Auto) Kendall # (Auto) Eos # (Auto) Baso # (Auto) Sodium Potassium Chloride Carbon Dioxide Anion Gap BUN Creatinine Est GFR ( Amer) Est GFR (Non-Af Amer) POC Glucose (mg/dL) 107 Random Glucose Calcium Iron TIBC % Saturation Ferritin Total Bilirubin AST ALT Alkaline Phosphatase Total Protein Albumin Globulin Albumin/Globulin Ratio Triglycerides Cholesterol LDL Cholesterol Direct HDL Cholesterol Assessment & Plan - Assessment and Plan (Free Text) Assessment: 72yo man with PMH of multiple CVAs, vascular dementia, T2DM, HTN, HLD, and recent discharge 08/30/17 for urinary incontinence 2/2 BPH with overflow presenting for confusion. Patient's daughter and at bedside provide history. GI consultation for dysphagia. Active treatment of concern for aspiration pneumonia 2/2 dysphagia and possible progressive vascular dementia No prior EGD or colonoscopy. Plan: -10/19/17 speech evaluation- suspect pharyngoesophageal dysmotility, possible honey thickened liquids, high risk for aspiration -risks vs benefit of feeding tube placement discussed with daughter and at bedside including infection, bleeding, perforation -family wishes against feeding tube placement at present discussion -family plans to wait barium swallow results and will re-evaluate feeding tube placement decision -await results of barium swallow -aspiration precautions -HOB 45 degrees -further recommendations after barium swallow -will continue to follow and re-evaluate family decision on feeding tube placement <Robbin Humphries - Last Filed: 10/20/17 12:21> Meds - Medications Medications: Current Medications Acetaminophen (Tylenol 650 Mg Supp) 650 mg RC Q6H PRN PRN Reason: Fever >100.4 F Last Admin: 10/20/17 10:44 Dose: 650 mg Aspirin (Ecotrin) 81 mg PO DAILY [facility] Last Admin: 10/19/17 11:13 Dose: Not Given Atorvastatin Calcium (Lipitor) 40 mg PO DIN [facility] Last Admin: 10/19/17 17:04 Dose: Not Given Finasteride (Proscar) 5 mg PO DAILY [facility] Last Admin: 10/19/17 11:13 Dose: Not Given Dextrose/Sodium Chloride (Dextrose 5%/0.9% Ns 1000 Ml) 1,000 mls @ 60 mls/hr IV .[id number] [facility] Last Admin: 10/20/17 05:52 Dose: 60 mls/hr Ampicillin Sodium/Sulbactam (Sodium 3 gm/ Sodium Chloride) 100 mls @ 200 mls/ hr IVPB Q6 [facility] PRN Reason: Protocol Last Admin: 10/20/17 05:57 Dose: 200 mls/hr Insulin Human Regular (Humulin R Low) 0 units SC ACHS [facility] PRN Reason: Protocol Last Admin: 10/20/17 08:19 Dose: Not Given Metoprolol Tartrate (Lopressor) 5 mg IVP Q6H PRN PRN Reason: Systolic Blood Pressure Pantoprazole Sodium (Protonix Inj) 40 mg IVP DAILY [facility] Last Admin: 10/20/17 10:42 Dose: 40 mg Tamsulosin HCl (Flomax) 0.4 mg PO DAILY [facility] Last Admin: 10/19/17 11:13 Dose: Not Given Results - Vital Signs Recent Vital Signs: Last Vital Signs Temp 100.6 F H 10/20/17 08:21 Pulse 91 H 10/20/17 08:21 Resp 18 10/20/17 08:21 BP 125/81 10/20/17 08:21 Pulse Ox 94 L 10/20/17 08:21 - Labs Result Diagrams: 10/20/17 05:30 10/20/17 05:30 Labs: Laboratory Results - last 24 hr 10/19/17 10/19/17 10/19/17 11:00 15:58 21:44 WBC RBC Hgb Hct MCV MCH MCHC RDW Plt Count MPV Gran % Lymph % (Auto) Kendall % (Auto) Eos % (Auto) Baso % (Auto) Gran # Lymph # (Auto) Kendall # (Auto) Eos # (Auto) Baso # (Auto) Sodium Potassium Chloride Carbon Dioxide Anion Gap BUN Creatinine Est GFR ( Amer) Est GFR (Non-Af Amer) POC Glucose (mg/dL) 115 H 106 Random Glucose Calcium Ferritin 140.0 Total Bilirubin AST ALT Alkaline Phosphatase Total Protein Albumin Globulin Albumin/Globulin Ratio 10/20/17 10/20/17 10/20/17 05:30 05:30 07:33 WBC 6.2 RBC 3.84 Hgb 9.7 L Hct 30.4 L MCV 79.2 L MCH 25.3 MCHC 31.9 RDW 14.4 Plt Count 226 MPV 8.9 Gran % 86.2 H Lymph % (Auto) 9.4 L Kendall % (Auto) 4.2 Eos % (Auto) 0.0 L Baso % (Auto) 0.2 Gran # 5.35 Lymph # (Auto) 0.6 L Kendall # (Auto) 0.3 Eos # (Auto) 0.0 Baso # (Auto) 0.01 Sodium 141 Potassium 3.6 Chloride 109 H Carbon Dioxide 24 Anion Gap 12 BUN 20 Creatinine 1.0 Est GFR ( Amer) > 60 Est GFR (Non-Af Amer) > 60 POC Glucose (mg/dL) 107 Random Glucose 113 H Calcium 9.4 Ferritin Total Bilirubin 0.9 AST 43 ALT 40 Alkaline Phosphatase 191 H Total Protein 6.0 Albumin 2.5 L Globulin 3.5 Albumin/Globulin Ratio 0.7 L 10/20/17 11:30 WBC RBC Hgb Hct MCV MCH MCHC RDW Plt Count MPV Gran % Lymph % (Auto) Kendall % (Auto) Eos % (Auto) Baso % (Auto) Gran # Lymph # (Auto) Kendall # (Auto) Eos # (Auto) Baso # (Auto) Sodium Potassium Chloride Carbon Dioxide Anion Gap BUN Creatinine Est GFR ( Amer) Est GFR (Non-Af Amer) POC Glucose (mg/dL) 103 Random Glucose Calcium Ferritin Total Bilirubin AST ALT Alkaline Phosphatase Total Protein Albumin Globulin Albumin/Globulin Ratio Attending/Attestation - Attestation I have personally seen and examined this patient.: Yes I have fully participated in the care of the patient.: Yes I have reviewed all pertinent clinical information: Yes Notes (Text): 10/20/17 12:21 72 year old male with h/o vascular dementia admitted with dysphagia/aspiration. Recommend speech eval. Consider PEG. Family considering.
--- NOTE | 2017-10-20 12:21 | CP.PCM.PN ---
Subjective - Date & Time of Evaluation Date of Evaluation: 10/20/17 Time of Evaluation: 11:00 - Subjective Subjective: No acute overnight issues Weak, lethargies, denies pain Objective - Vital Signs/Intake and Output Vital Signs (last 24 hours): Temp Pulse Resp BP Pulse Ox 100.6 F H 91 H 18 125/81 94 L 10/20/17 08:21 10/20/17 08:21 10/20/17 08:21 10/20/17 08:21 10/20/17 08:21 Intake and Output: 10/20/17 10/20/17 06:59 18:59 Output Total 450 Balance -450 - Medications Medications: Current Medications Acetaminophen (Tylenol 650 Mg Supp) 650 mg RC Q6H PRN PRN Reason: Fever >100.4 F Last Admin: 10/20/17 10:44 Dose: 650 mg Aspirin (Ecotrin) 81 mg PO DAILY [facility] Last Admin: 10/19/17 11:13 Dose: Not Given Atorvastatin Calcium (Lipitor) 40 mg PO DIN [facility] Last Admin: 10/19/17 17:04 Dose: Not Given Finasteride (Proscar) 5 mg PO DAILY [facility] Last Admin: 10/19/17 11:13 Dose: Not Given Dextrose/Sodium Chloride (Dextrose 5%/0.9% Ns 1000 Ml) 1,000 mls @ 60 mls/hr IV .[id number] [facility] Last Admin: 10/20/17 05:52 Dose: 60 mls/hr Ampicillin Sodium/Sulbactam (Sodium 3 gm/ Sodium Chloride) 100 mls @ 200 mls/ hr IVPB Q6 [facility] PRN Reason: Protocol Last Admin: 10/20/17 05:57 Dose: 200 mls/hr Insulin Human Regular (Humulin R Low) 0 units SC ACHS [facility] PRN Reason: Protocol Last Admin: 10/20/17 08:19 Dose: Not Given Metoprolol Tartrate (Lopressor) 5 mg IVP Q6H PRN PRN Reason: Systolic Blood Pressure Pantoprazole Sodium (Protonix Inj) 40 mg IVP DAILY [facility] Last Admin: 10/20/17 10:42 Dose: 40 mg Tamsulosin HCl (Flomax) 0.4 mg PO DAILY [facility] Last Admin: 10/19/17 11:13 Dose: Not Given - Labs Labs: 10/20/17 05:30 10/20/17 05:30 PT 13.1 SECONDS (9.4-12.5) H 10/17/17 13:30 INR 1.14 (0.93-1.08) H 10/17/17 13:30 APTT 34.6 Seconds (25.1-36.5) 10/17/17 13:30 - Constitutional Appears: Cachectic, Chronically Ill - Eye Exam Eye Exam: Normal appearance, PERRL - ENT Exam ENT Exam: Mucous Membranes Moist - Neck Exam Neck Exam: Normal Inspection - Respiratory Exam Respiratory Exam: Decreased Breath Sounds, NORMAL BREATHING PATTERN - Cardiovascular Exam Cardiovascular Exam: REGULAR RHYTHM, +S1, +S2 - GI/Abdominal Exam GI & Abdominal Exam: Soft, Normal Bowel Sounds - Extremities Exam Extremities Exam: Pedal Edema - Neurological Exam Neurological Exam: Altered - Skin Skin Exam: Pallor Assessment and Plan - Assessment and Plan (Free Text) Assessment: 72 year old male with history of vascular dementia, DM,HTN and urinary incontinence who was admitted with weakness, altered mental status, dyspahgia and weight loss. Patients daughter at bedside. Daughter states that they want to sign out of the hospital and take her father somewhere else. Encouraged to keep hospitalized so that additional medical evaluations can be done. Family presented with option for additional GI work up, PEG if necessary. Family does not want PEG at this time. I explained that her father's condition is not likely to improve. Offered option for comfort/hospice care. Hospice care explained. Daughter states that family does not want hospice. Encouraged to consider DNR/DNI directive. Burdens of resuscitation explained again. Daughter states that her father is to remain full code status Time spent in goals of care discussion, 20 minutes Plan: Goals of care and advance care planning
--- NOTE | 2017-10-20 13:07 | CP.PCM.DIS ---
<Hever Duran - Last Filed: 10/20/17 12:49> Provider - Provider Date of Admission: 10/17/17 22:16 Attending physician: Raza De Leon MD Primary care physician: Mckayla Tuttle MD Consults: Neuro: Weinberg Palliative: Paramonte Uro: Peter GI: Jorge L ID: Go Time Spent in preparation of Discharge (in minutes): 45 Hospital Course - Lab Results Lab Results: Most Recent Lab Values WBC 6.2 10^3/ul (4.5-11.0) 10/20/17 05:30 RBC 3.84 10^6/uL (3.5-6.1) 10/20/17 05:30 Hgb 9.7 g/dL (14.0-18.0) L 10/20/17 05:30 Hct 30.4 % (42.0-52.0) L 10/20/17 05:30 MCV 79.2 fl (80.0-105.0) L 10/20/17 05:30 MCH 25.3 pg (25.0-35.0) 10/20/17 05:30 MCHC 31.9 g/dl (31.0-37.0) 10/20/17 05:30 RDW 14.4 % (11.5-14.5) 10/20/17 05:30 Plt Count 226 10^3/uL (120.0-450.0) 10/20/17 05:30 MPV 8.9 fl (7.0-11.0) 10/20/17 05:30 Gran % 86.2 % (50.0-68.0) H 10/20/17 05:30 Lymph % (Auto) 9.4 % (22.0-35.0) L 10/20/17 05:30 [place] % (Auto) 4.2 % (1.0-6.0) 10/20/17 05:30 Eos % (Auto) 0.0 % (1.5-5.0) L 10/20/17 05:30 Baso % (Auto) 0.2 % (0.0-3.0) 10/20/17 05:30 Gran # 5.35 (1.4-6.5) 10/20/17 05:30 Lymph # (Auto) 0.6 (1.2-3.4) L 10/20/17 05:30 [place] # (Auto) 0.3 (0.1-0.6) 10/20/17 05:30 Eos # (Auto) 0.0 (0.0-0.7) 10/20/17 05:30 Baso # (Auto) 0.01 K/mm3 (0.0-2.0) 10/20/17 05:30 PT 13.1 SECONDS (9.4-12.5) H 10/17/17 13:30 INR 1.14 (0.93-1.08) H 10/17/17 13:30 APTT 34.6 Seconds (25.1-36.5) 10/17/17 13:30 pO2 38 mm/Hg (30-55) 10/17/17 13:30 VBG pH 7.38 (7.32-7.43) 10/17/17 13:30 VBG pCO2 46.0 (40-60) 10/17/17 13:30 VBG HCO3 27.2 mmol/l (21-28) 10/17/17 13:30 VBG Total CO2 28.6 mmol.L (22-28) H 10/17/17 13:30 VBG O2 Sat (Calc) 75.1 % (40-65) H 10/17/17 13:30 VBG Base Excess 1.5 mmol/L (0.0-2.0) 10/17/17 13:30 VBG Potassium 3.7 mmol/L (3.6-5.2) 10/17/17 13:30 Sodium 132.0 mmol/L (132-148) 10/17/17 13:30 Chloride 101.0 mmol/L (98-107) 10/17/17 13:30 Glucose 99 mg/dl (75-110) 10/17/17 13:30 Lactate 1.1 mmol/L (0.7-2.1) 10/17/17 13:30 FiO2 21.0 % 10/17/17 13:30 Sodium 141 mmol/L (132-148) 10/20/17 05:30 Potassium 3.6 mmol/L (3.6-5.0) 10/20/17 05:30 Chloride 109 mmol/L (98-107) H 10/20/17 05:30 Carbon Dioxide 24 mmol/L (21-33) 10/20/17 05:30 Anion Gap 12 (10-20) 10/20/17 05:30 BUN 20 mg/dL (7-21) 10/20/17 05:30 Creatinine 1.0 mg/dl (0.8-1.5) 10/20/17 05:30 Est GFR ( Amer) > 60 10/20/17 05:30 Est GFR (Non-Af Amer) > 60 10/20/17 05:30 POC Glucose (mg/dL) 103 mg/dL (65-110) 10/20/17 11:30 Random Glucose 113 mg/dL (70-110) H 10/20/17 05:30 Calcium 9.4 mg/dL (8.4-10.5) 10/20/17 05:30 Phosphorus 4.0 mg/dL (2.5-4.5) 10/17/17 13:30 Magnesium 1.8 mg/dL (1.7-2.2) 10/19/17 06:30 Iron 45 ug/dL (45-180) 10/19/17 11:00 TIBC 196 ug/dL (261-462) L 10/19/17 11:00 % Saturation 23 % (20-55) 10/19/17 11:00 Ferritin 140.0 ng/mL 10/19/17 11:00 Total Bilirubin 0.9 mg/dL (0.2-1.3) 10/20/17 05:30 AST 43 U/L (17-59) 10/20/17 05:30 ALT 40 U/L (7-56) 10/20/17 05:30 Alkaline Phosphatase 191 U/L (38-126) H 10/20/17 05:30 Troponin I < 0.01 ng/mL 10/17/17 13:30 NT-Pro-B Natriuret Pep 982 pg/mL (0-450) H 10/17/17 13:30 Total Protein 6.0 g/dL (5.8-8.3) 10/20/17 05:30 Albumin 2.5 g/dL (3.0-4.8) L 10/20/17 05:30 Globulin 3.5 gm/dL 10/20/17 05:30 Albumin/Globulin Ratio 0.7 (1.1-1.8) L 10/20/17 05:30 Triglycerides 121 mg/dL (35-160) 10/19/17 11:00 Cholesterol 136 mg/dL (130-200) 10/19/17 11:00 LDL Cholesterol Direct 87 mg/dL (0-129) 10/19/17 11:00 HDL Cholesterol 20 mg/dL (29-60) L 10/19/17 11:00 Procalcitonin 0.30 NG/ML (0.19-0.49) 10/18/17 07:00 Venous Blood Potassium 3.7 mmol/L (3.6-5.2) 10/17/17 13:30 Urine Color Yellow (YELLOW) 10/17/17 20:32 Urine Appearance Clear (CLEAR) 10/17/17 20:32 Urine pH 7.0 (4.7-8.0) 10/17/17 20:32 Ur Specific [place] 1.020 (1.005-1.035) 10/17/17 20:32 Urine Protein Negative mg/dL (<30 mg/dL) 10/17/17 20:32 Urine Glucose (UA) Negative mg/dL (NEGATIVE) 10/17/17 20:32 Urine Ketones Negative mg/dL (NEGATIVE) 10/17/17 20:32 Urine Blood Trace-lysed (NEGATIVE) H 10/17/17 20:32 Urine Nitrate Negative (NEGATIVE) 10/17/17 20:32 Urine Bilirubin Negative (NEGATIVE) 10/17/17 20:32 Urine Urobilinogen 0.2 E.U./dL (<1 E.U./dL) 10/17/17 20:32 Ur Leukocyte Esterase Negative [place]/uL (NEGATIVE) 10/17/17 20:32 Urine RBC 2 - 5 /hpf (0-2) 10/17/17 20:32 Urine WBC 0 - 2 /hpf (0-6) 10/17/17 20:32 Ur Epithelial Cells 0 - 2 /hpf (0-5) 10/17/17 20:32 Urine Bacteria Mod (NEG) 10/17/17 20:32 - Hospital Course Hospital Course: Patient is a 72yo male with history of HTN, HLD, CVA, urinary incontinence and vascular dementia brought to [facility] due to altered mental status, generalized weakness, loss of functional status and urinary incontinence. Per son, patient had been discharged from [facility] approximately a month prior and was treated at that time for urinary incontinence. Upon discharge home, he reports that his father was independent with his ADL's however several days after discharge he began to decline and ultimately required complete care by aid of his family. He reportedly could no longer recognize his family, had lack of appetite and continued to have issues with urinary incontinence. The family believes that Flomax was the primary cause of the patient's AMS. Patient was instructed by Dr. Green (urology) to seek further evaluation/management at [facility]. Patient was admitted for AMS and urinary incontinence. CT head showed no acute intracranial abnormality and severe chronic microangiopathic changes and moderate age related global parenchymal volume loss. MRI brain showed severe chronic microvascular changes are seen in the periventricular white matter, more extensive on the left. Moderate atrophy. Neuro was consulted which stated no neurological intervention was needed. CXR showed slight increase in interstitial infiltrate. CT abdomen/pelvis showed increased infiltrate in both lower lobes. Patient was placed on unasyn to cover for possible aspiration pneumonia. UA was negative. Blood and urine cultures were negative. ID was consulted, recommendations were appreciated. Patient continued to run fevers during hospital course. However, the family refused tylenol for the patient, citing a previous renal issue with tylenol. It was explained to the family that tylenol has minimal affect renally and that the benefits outweighed any risks. The family still elected to deny treatment. Cooling blanket was not administered because the patient refused. GI was consulted and recommended further evaluation of patient's dysphagia via barium swallow and PEG tube consideration. Speech/swallow evaluation was ordered and PO trials were recommended. Urology was consulted due to urinary incontinence. CT abdomen/ pelvis was unremarkable urologically. Electrolytes were monitored and repleted as needed. Anemia work up was ordered. Diabetes was managed. Today, patient was seen and examined at bedside. After discussion with the family and with palliative care, the family no longer wanted evaluation and treatment at [facility]. Therefore, the patient's decided to sign him out AMA as the patient is unable to make decisions based on his mental status. Benefits of continued care were explained and risks of leaving against medical advice was explained. Prescription for a wheel chair was given. Working Diagnoses on AMA - Altered mental status - Possible aspiration pneumonia - Dysphagia - Urinary Incontinence - H/o HTN - H/o diabetes mellitus Discharge Exam - Head Exam Head Exam: ATRAUMATIC, NORMOCEPHALIC - Eye Exam Eye Exam: Normal appearance - ENT Exam ENT Exam: Mucous Membranes Dry - Neck Exam Neck exam: Normal Inspection - Respiratory Exam Respiratory Exam: Clear to PA & Lateral. absent: Rales, Rhonchi, Wheezes Additional comments: somewhat labored - Cardiovascular Exam Cardiovascular Exam: RRR, +S1, +S2. absent: Diastolic murmur, Gallop, Rubs, Systolic Murmur - GI/Abdominal Exam GI & Abdominal Exam: Soft. absent: Distended, Guarding, Rebound - Extremities Exam Extremities exam: normal inspection - Back Exam Back exam: NORMAL INSPECTION - Neurological Exam Neurological exam: Altered - Skin Skin Exam: Dry, Intact, Normal Color, Warm Discharge Plan - Follow Up Plan Condition: GUARDED Disposition: AGAINST MEDICAL ADVICE Instructions: Altered Mental Status (GEN) Referrals: Mckayla Tuttle MD [Primary Care Provider] - <Raza De Leon - Last Filed: 10/20/17 17:49> Provider - Provider Date of Admission: 10/17/17 22:16 Attending physician: Raza De Leon MD Primary care physician: Mckayla Tuttle MD Hospital Course - Lab Results Lab Results: Most Recent Lab Values WBC 6.2 10^3/ul (4.5-11.0) 10/20/17 05:30 RBC 3.84 10^6/uL (3.5-6.1) 10/20/17 05:30 Hgb 9.7 g/dL (14.0-18.0) L 10/20/17 05:30 Hct 30.4 % (42.0-52.0) L 10/20/17 05:30 MCV 79.2 fl (80.0-105.0) L 10/20/17 05:30 MCH 25.3 pg (25.0-35.0) 10/20/17 05:30 MCHC 31.9 g/dl (31.0-37.0) 10/20/17 05:30 RDW 14.4 % (11.5-14.5) 10/20/17 05:30 Plt Count 226 10^3/uL (120.0-450.0) 10/20/17 05:30 MPV 8.9 fl (7.0-11.0) 10/20/17 05:30 Gran % 86.2 % (50.0-68.0) H 10/20/17 05:30 Lymph % (Auto) 9.4 % (22.0-35.0) L 10/20/17 05:30 [place] % (Auto) 4.2 % (1.0-6.0) 10/20/17 05:30 Eos % (Auto) 0.0 % (1.5-5.0) L 10/20/17 05:30 Baso % (Auto) 0.2 % (0.0-3.0) 10/20/17 05:30 Gran # 5.35 (1.4-6.5) 10/20/17 05:30 Lymph # (Auto) 0.6 (1.2-3.4) L 10/20/17 05:30 [place] # (Auto) 0.3 (0.1-0.6) 10/20/17 05:30 Eos # (Auto) 0.0 (0.0-0.7) 10/20/17 05:30 Baso # (Auto) 0.01 K/mm3 (0.0-2.0) 10/20/17 05:30 PT 13.1 SECONDS (9.4-12.5) H 10/17/17 13:30 INR 1.14 (0.93-1.08) H 10/17/17 13:30 APTT 34.6 Seconds (25.1-36.5) 10/17/17 13:30 pO2 38 mm/Hg (30-55) 10/17/17 13:30 VBG pH 7.38 (7.32-7.43) 10/17/17 13:30 VBG pCO2 46.0 (40-60) 10/17/17 13:30 VBG HCO3 27.2 mmol/l (21-28) 10/17/17 13:30 VBG Total CO2 28.6 mmol.L (22-28) H 10/17/17 13:30 VBG O2 Sat (Calc) 75.1 % (40-65) H 10/17/17 13:30 VBG Base Excess 1.5 mmol/L (0.0-2.0) 10/17/17 13:30 VBG Potassium 3.7 mmol/L (3.6-5.2) 10/17/17 13:30 Sodium 132.0 mmol/L (132-148) 10/17/17 13:30 Chloride 101.0 mmol/L (98-107) 10/17/17 13:30 Glucose 99 mg/dl (75-110) 10/17/17 13:30 Lactate 1.1 mmol/L (0.7-2.1) 10/17/17 13:30 FiO2 21.0 % 10/17/17 13:30 Sodium 141 mmol/L (132-148) 10/20/17 05:30 Potassium 3.6 mmol/L (3.6-5.0) 10/20/17 05:30 Chloride 109 mmol/L (98-107) H 10/20/17 05:30 Carbon Dioxide 24 mmol/L (21-33) 10/20/17 05:30 Anion Gap 12 (10-20) 10/20/17 05:30 BUN 20 mg/dL (7-21) 10/20/17 05:30 Creatinine 1.0 mg/dl (0.8-1.5) 10/20/17 05:30 Est GFR ( Amer) > 60 10/20/17 05:30 Est GFR (Non-Af Amer) > 60 10/20/17 05:30 POC Glucose (mg/dL) 103 mg/dL (65-110) 10/20/17 11:30 Random Glucose 113 mg/dL (70-110) H 10/20/17 05:30 Calcium 9.4 mg/dL (8.4-10.5) 10/20/17 05:30 Phosphorus 4.0 mg/dL (2.5-4.5) 10/17/17 13:30 Magnesium 1.8 mg/dL (1.7-2.2) 10/19/17 06:30 Iron 45 ug/dL (45-180) 10/19/17 11:00 TIBC 196 ug/dL (261-462) L 10/19/17 11:00 % Saturation 23 % (20-55) 10/19/17 11:00 Ferritin 140.0 ng/mL 10/19/17 11:00 Total Bilirubin 0.9 mg/dL (0.2-1.3) 10/20/17 05:30 AST 43 U/L (17-59) 10/20/17 05:30 ALT 40 U/L (7-56) 10/20/17 05:30 Alkaline Phosphatase 191 U/L (38-126) H 10/20/17 05:30 Troponin I < 0.01 ng/mL 10/17/17 13:30 NT-Pro-B Natriuret Pep 982 pg/mL (0-450) H 10/17/17 13:30 Total Protein 6.0 g/dL (5.8-8.3) 10/20/17 05:30 Albumin 2.5 g/dL (3.0-4.8) L 10/20/17 05:30 Globulin 3.5 gm/dL 10/20/17 05:30 Albumin/Globulin Ratio 0.7 (1.1-1.8) L 10/20/17 05:30 Triglycerides 121 mg/dL (35-160) 10/19/17 11:00 Cholesterol 136 mg/dL (130-200) 10/19/17 11:00 LDL Cholesterol Direct 87 mg/dL (0-129) 10/19/17 11:00 HDL Cholesterol 20 mg/dL (29-60) L 10/19/17 11:00 Procalcitonin 0.30 NG/ML (0.19-0.49) 10/18/17 07:00 Venous Blood Potassium 3.7 mmol/L (3.6-5.2) 10/17/17 13:30 Urine Color Yellow (YELLOW) 10/17/17 20:32 Urine Appearance Clear (CLEAR) 10/17/17 20:32 Urine pH 7.0 (4.7-8.0) 10/17/17 20:32 Ur Specific [place] 1.020 (1.005-1.035) 10/17/17 20:32 Urine Protein Negative mg/dL (<30 mg/dL) 10/17/17 20:32 Urine Glucose (UA) Negative mg/dL (NEGATIVE) 10/17/17 20:32 Urine Ketones Negative mg/dL (NEGATIVE) 10/17/17 20:32 Urine Blood Trace-lysed (NEGATIVE) H 10/17/17 20:32 Urine Nitrate Negative (NEGATIVE) 10/17/17 20:32 Urine Bilirubin Negative (NEGATIVE) 10/17/17 20:32 Urine Urobilinogen 0.2 E.U./dL (<1 E.U./dL) 10/17/17 20:32 Ur Leukocyte Esterase Negative [place]/uL (NEGATIVE) 10/17/17 20:32 Urine RBC 2 - 5 /hpf (0-2) 10/17/17 20:32 Urine WBC 0 - 2 /hpf (0-6) 10/17/17 20:32 Ur Epithelial Cells 0 - 2 /hpf (0-5) 10/17/17 20:32 Urine Bacteria Mod (NEG) 10/17/17 20:32 Attending/Attestation - Attestation I have personally seen and examined this patient.: Yes I have fully participated in the care of the patient.: Yes I have reviewed all pertinent clinical information, including history, physical exam and plan: Yes Notes (Text): 10/20/17 17:34 attending note; patient seen and examined. Patient is a 72-year-old male with a past medical history of multiple CVA, questionable dementia, urinary incontinence is admitted worsening urinary incontinence and general deconditioning. currently patient is lethargic. Patient has dysphagia. Not able to communicate due to lethargy/language barrier. Patient's and daughter by the bedside. Has temperature of 100.6. Per rectal Tylenol given. Patient failed bedside swallow evaluation multiple times. Patient also failed barium swallow study yesterday. Patient was evaluated by neurologist; vascular dementia. CT head showed no acute infarct. MRI showed old multiple infarcts and atrophy. Low-grade temperature; mostly secondary to aspiration pneumonia. As per family patient's mental status has been deteriorating for the past few months. Patient is also losing weight slowly. Patient has poor appetite. Family has been feeding him at home. possible long- term microaspiration suspected. Possible deterioration of mental status due to vascular dementia/sepsis. Currently on IV unasyn. Blood culture is negative. Urine culture is negative. chest x-ray showed interstitial infiltrate. ID evaluation requested. Patient is also anemic; no previous EGD or colonoscopy. Might benefit from GI evaluation. GI evaluation requested. case discussed with family in detail. Possibility of PEG tube discussed in detail. Family refused PEG tube placement. Family refused rehab placement. palliative care evaluation appreciated. Family refused hospice. Refused DNI DNR. family wanted to sign AGAINST MEDICAL ADVICE. case discussed with patient's PMD Dr. Mckayla Tuttle [phone] in detail. Complete information about hospital course, treatment and discharge information given to the primary care doctor. time spent over one hour. family signed AGAINST MEDICAL ADVICE. Explained in detail that feeding the patient can cause further deterioration of aspiration pneumonia/respiratory difficulty/respiratory arrest/choking since the patient failed swallow evaluation multiple times.
--- NOTE | 2017-10-20 18:00 | CP.PCM.CON ---
History of Present Illness - History of Present Illness History of Present Illness: Infectious Disease Consultation: October 20, 2017 72 yo male with extensive medical history that includes HTN, HLD, CVA, urinary incontinence and vascular dementia brought to [facility] due to altered mental status, generalized weakness, loss of functional status and urinary incontinence. Patient was in [facility] a month ago for care where family states the patient was fully independent with ADLs. Neurology notes from that hospitalization indicate that the patient significant confusion and generalized weakness and that the patient has had a stepwise decline over the course of five years. There was a question of aspiration pneumonia on this hospitalization in addition to the patient AMS. Family apparently became upset with the care and projected prognosis for the patient and now want to sign the patient out AMA. Patient was on Ceftriaxone then Unasyn for antibiotic therapy. PMHx: DM2, HTN, HLD, Hx of CVA, urinary incontinence, vascular dementia PSHx: none given by family Allergies: NKDA Social Hx: Ex-tobacco use No EtOH or illicit drugs Former construction crew member Medications: Tamsulosin, Metoprolol, Finasteride, Atorvastatin, Aspirin, Unasyn. Family Hx: none given ROS: Unable to obtain from the patient. Past Patient History - Infectious Disease Hx of Infectious Diseases: None - Tetanus Immunizations Tetanus Immunization: Up to Date - Past Social History Smoking Status: Never Smoked - CARDIAC Hx Cardiac Disorders: Yes Hx Hypertension: Yes - PULMONARY Hx Respiratory Disorders: No - NEUROLOGICAL HX Cerebrovascular Accident: Yes (x 4 with left sided weakness) - HEENT Hx HEENT Problems: Yes (glasses for reading) - RENAL Hx Chronic Kidney Disease: No - ENDOCRINE/METABOLIC Hx Diabetes Mellitus Type 2: Yes - HEMATOLOGICAL/ONCOLOGICAL Hx Blood Disorders: Yes Hx Anemia: Yes - INTEGUMENTARY Hx Dermatological Problems: No - MUSCULOSKELETAL/RHEUMATOLOGICAL Hx Musculoskeletal Disorders: No Hx Falls: No - GASTROINTESTINAL Hx Gastrointestinal Disorders: Yes HX Swallowing Problems: Yes - GENITOURINARY/GYNECOLOGICAL Hx Genitourinary Disorders: No - PSYCHIATRIC Hx Psychophysiologic Disorder: No Hx Depression: No Hx Emotional Abuse: No Hx Physical Abuse: No Hx Substance Use: No - SURGICAL HISTORY Hx Surgeries: No Meds Allergies/Adverse Reactions: Allergies Allergy/AdvReac Type Severity Reaction Status Date / Time No Known Allergies Allergy Verified 10/17/17 12:51 Physical Exam - Constitutional Appears: Confused, Chronically Ill - Head Exam Head Exam: ATRAUMATIC, NORMOCEPHALIC - Eye Exam Eye Exam: EOMI, PERRL Pupil Exam: NORMAL ACCOMODATION, PERRL - ENT Exam ENT Exam: Mucous Membranes Moist, Normal External Ear Exam, TM's Normal Bilaterally - Neck Exam Neck exam: Positive for: Full Rom, Normal Inspection - Respiratory Exam Respiratory Exam: Decreased Breath Sounds. absent: Rales, Rhonchi, Wheezes - Cardiovascular Exam Cardiovascular Exam: REGULAR RHYTHM, RRR, +S1, +S2 - GI/Abdominal Exam GI & Abdominal Exam: Normal Bowel Sounds, Soft. absent: Distended, Tenderness - Extremities Exam Extremities exam: Positive for: normal inspection. Negative for: joint swelling , pedal edema - Neurological Exam Neurological exam: Alert, CN II-XII Intact Additional comments: AAO x 1 - Psychiatric Exam Additional comments: Confused - Skin Skin Exam: Dry, Intact, Warm Results - Vital Signs Recent Vital Signs: Last Vital Signs Temp 100.6 F H 10/20/17 08:21 Pulse 91 H 10/20/17 08:21 Resp 18 10/20/17 08:21 BP 125/81 10/20/17 08:21 Pulse Ox 94 L 10/20/17 08:21 - Labs Result Diagrams: 10/20/17 05:30 10/20/17 05:30 Labs: Laboratory Results - last 24 hr 10/19/17 10/20/17 10/20/17 21:44 05:30 05:30 WBC 6.2 RBC 3.84 Hgb 9.7 L Hct 30.4 L MCV 79.2 L MCH 25.3 MCHC 31.9 RDW 14.4 Plt Count 226 MPV 8.9 Gran % 86.2 H Lymph % (Auto) 9.4 L [place] % (Auto) 4.2 Eos % (Auto) 0.0 L Baso % (Auto) 0.2 Gran # 5.35 Lymph # (Auto) 0.6 L [place] # (Auto) 0.3 Eos # (Auto) 0.0 Baso # (Auto) 0.01 Sodium 141 Potassium 3.6 Chloride 109 H Carbon Dioxide 24 Anion Gap 12 BUN 20 Creatinine 1.0 Est GFR ( Amer) > 60 Est GFR (Non-Af Amer) > 60 POC Glucose (mg/dL) 106 Random Glucose 113 H Calcium 9.4 Total Bilirubin 0.9 AST 43 ALT 40 Alkaline Phosphatase 191 H Total Protein 6.0 Albumin 2.5 L Globulin 3.5 Albumin/Globulin Ratio 0.7 L 10/20/17 10/20/17 07:33 11:30 WBC RBC Hgb Hct MCV MCH MCHC RDW Plt Count MPV Gran % Lymph % (Auto) [place] % (Auto) Eos % (Auto) Baso % (Auto) Gran # Lymph # (Auto) [place] # (Auto) Eos # (Auto) Baso # (Auto) Sodium Potassium Chloride Carbon Dioxide Anion Gap BUN Creatinine Est GFR ( Amer) Est GFR (Non-Af Amer) POC Glucose (mg/dL) 107 103 Random Glucose Calcium Total Bilirubin AST ALT Alkaline Phosphatase Total Protein Albumin Globulin Albumin/Globulin Ratio Assessment & Plan - Assessment and Plan (Free Text) Assessment: 72 yo male with multiple medical issues presenting with AMS to hospital. Question of a possible aspiration pneumonia. The patient has had a deterioration in his mental capacity and medical condition. Family appears to be upset with the grim prognosis and wants to sign the patient out AMA. Currently on Unasyn for antibiotic therapy. Cultures pending. Supportive care. Thank you for allowing me to participate in the care of the patient, we will follow with you.
[2017-10-20 19:39] LABS: TOTAL PSA 0.2 ng/mL (< or = 4.0)
== END 2017-10-20 14:02 | disposition left against medical advice (07) | DRG 79 ==
LOC: ED 11:55 → ERH 22:16 → 3RNO 10-18 00:23
PROVIDERS: ADMIT Hospitalist; ATTEND Internal Medicine
DX: J69.0 Pneumonitis due to inhalation of food and vomit (principal); E87.6 Hypokalemia; E11.51 Type 2 diabetes mellitus with diabetic peripheral angiopathy without gangrene; R64 Cachexia; R82.71 Bacteriuria; F01.50 Vascular dementia, unspecified severity, without behavioral disturbance, psychotic disturbance, mood disturbance, and anxiety; I71.4 Abdominal aortic aneurysm, without rupture; I10 Essential (primary) hypertension; N40.1 Benign prostatic hyperplasia with lower urinary tract symptoms; N39.490 Overflow incontinence; R13.10 Dysphagia, unspecified; E78.5 Hyperlipidemia, unspecified; D64.9 Anemia, unspecified; R63.0 Anorexia; R41.82 Altered mental status, unspecified; Z68.1 Body mass index [BMI] 19.9 or less, adult; Z86.73 Personal history of transient ischemic attack (TIA), and cerebral infarction without residual deficits; Z87.891 Personal history of nicotine dependence